=== PATIENT | male | born 1930 | race Caucasian/White ===

== ENCOUNTER → 2016-09-24 | Outpatient (CLI) | payer OTHER ==
[~2016-09-24] MED LIST: CALC625T PO; CLC100X PO; FISHOIL PO; FRRG PO; GLC500 PO; ISR/30 PO; LEVO112T4; LISI-461 PO; LISI5TAB; LSX40 PO; LYR50 PO; METO-596 PO; METO50TA17 PO; NITR0.4S UT; OMEG1CAP84 PO; OSTEO BI FLEX PO; POTA10CA28 PO; SIMV80TA2 PO; SULF800T23 PO
[2016-09-24 18:32] LABS: BASO % 0.4 %; BASO ABS # 0.04 K/uL (0-0.2); COMPLETE YES; EOS % 2.9 %; HEMATOCRIT 39.3 % (42-52); IG% 0.5 %; LYMPH ABS # 2.53 K/uL (1.2-3.4); MEAN CELL VOLUME 88.3 fL (80-100); MEAN CORPUSCULAR HEMOGLOBIN 28.3 pg (25-34); MEAN CORPUSCULAR HGB CONC 32.1 g/dl (32-36); MEAN PLATELET VOLUME 13.6 fL (7.4-10.4); MONO % 6.6 %; NEUT % 62.6 %; PLATELET COUNT 175 K/uL (130-400); RED BLOOD COUNT 4.45 M/uL (4.7-6.1); WHITE BLOOD COUNT 9.38 K/uL (4.8-10.8)
[2016-09-24 18:42] LABS: BLOOD UREA NITROGEN 17 mg/dl (7-18); BUN/CREATININE RATIO 17.4 (10-20); CALCIUM 8.7 mg/dl (8.5-10.1); CARBON DIOXIDE 33 mmol/L (21-32); CHLORIDE 103 mmol/L (98-107); CREATININE 0.95 mg/dl (0.60-1.40); GLUCOSE 144 mg/dl (70-99); POTASSIUM 3.9 mmol/L (3.5-5.1); SODIUM 140 mmol/L (136-145)
[2016-09-24 18:52] LABS: ALKALINE PHOSPHATASE 56 U/L (45-117); ALT/SGPT 24 U/L (12-78); AST/SGOT 17 U/L (15-37)
[2016-09-25 06:49] LABS: ESTIMATED AVERAGE GLUCOSE 189 mg/dl; HA1C FLAG Normal (Normal)
== END | disposition home or self-care (01) ==
LOC: C.LABSPEC 10:21
PROVIDERS: ATTEND Internal Medicine
DX: I25.10 Atherosclerotic heart disease of native coronary artery without angina pectoris (principal); E11.9 Type 2 diabetes mellitus without complications; R53.83 Other fatigue; E55.9 Vitamin D deficiency, unspecified

== ENCOUNTER → 2016-12-27 | Outpatient (CLI) | payer OTHER ==
[~2016-12-27] MED LIST changes: +ISOS30TA51 PO; -ISR/30 PO
[2016-12-27 15:24] LABS: BASO % 0.4 %; BASO ABS # 0.04 K/uL (0-0.2); COMPLETE YES; EOS % 2.3 %; HEMATOCRIT 40.2 % (42-52); IG% 0.5 %; LYMPH % 20.5 %; LYMPH ABS # 2.06 K/uL (1.2-3.4); MEAN CELL VOLUME 86.5 fL (80-100); MEAN CORPUSCULAR HEMOGLOBIN 27.1 pg (25-34); MEAN CORPUSCULAR HGB CONC 31.3 g/dl (32-36); MEAN PLATELET VOLUME 12.8 fL (7.4-10.4); NEUT % 68.3 %; PLATELET COUNT 206 K/uL (130-400); RED BLOOD COUNT 4.65 M/uL (4.7-6.1); WHITE BLOOD COUNT 10.05 K/uL (4.8-10.8)
[2016-12-27 15:37] LABS: ALB/GLOB RATIO 1.1 (0.9-2); ALKALINE PHOSPHATASE 54 U/L (45-117); ALT/SGPT 28 U/L (12-78); AMYLASE 36 U/L (25-115); AST/SGOT 22 U/L (15-37); BLOOD UREA NITROGEN 20 mg/dl (7-18); BUN/CREATININE RATIO 20.4 (10-20); CALCIUM 8.9 mg/dl (8.5-10.1); CARBON DIOXIDE 30 mmol/L (21-32); CHLORIDE 106 mmol/L (98-107); GLUCOSE 123 mg/dl (70-99); SODIUM 142 mmol/L (136-145)
== END | disposition home or self-care (01) ==
LOC: C.LABSPEC 14:43
PROVIDERS: ATTEND Internal Medicine
DX: R10.9 Unspecified abdominal pain (principal)

== ENCOUNTER → 2017-05-29 | Outpatient (CLI) | payer OTHER ==
[~2017-05-29] MED LIST changes: -ISOS30TA51 PO; +ISR/30 PO
[2017-05-29 15:15] LABS: BASO % 0.4 %; BASO ABS # 0.04 K/uL (0-0.2); COMPLETE YES; EOS % 3.7 %; HEMATOCRIT 39.4 % (42-52); IG% 0.8 %; LYMPH % 16.4 %; LYMPH ABS # 1.63 K/uL (1.2-3.4); MEAN CORPUSCULAR HGB CONC 32.2 g/dl (32-36); MEAN PLATELET VOLUME 12.8 fL (7.4-10.4); MONO % 8.8 %; NEUT % 69.9 %; PLATELET COUNT 208 K/uL (130-400); RED BLOOD COUNT 4.53 M/uL (4.7-6.1); WHITE BLOOD COUNT 9.92 K/uL (4.8-10.8)
[2017-05-29 15:24] LABS: ALT/SGPT 21 U/L (12-78); BLOOD UREA NITROGEN 20 mg/dl (7-18); BUN/CREATININE RATIO 19.1 (10-20); CALCIUM 8.4 mg/dl (8.5-10.1); CARBON DIOXIDE 33 mmol/L (21-32); CHLORIDE 103 mmol/L (98-107); CREATININE 1.03 mg/dl (0.60-1.40); GLUCOSE 177 mg/dl (70-99); POTASSIUM 3.9 mmol/L (3.5-5.1); SODIUM 140 mmol/L (136-145)
[2017-05-29 15:34] LABS: ALKALINE PHOSPHATASE 51 U/L (45-117); AST/SGOT 18 U/L (15-37)
[2017-05-30 06:21] LABS: ESTIMATED AVERAGE GLUCOSE 180 mg/dl; HA1C FLAG Normal (Normal)
== END | disposition home or self-care (01) ==
LOC: C.LABSPEC 14:53
PROVIDERS: ATTEND Internal Medicine
DX: D64.9 Anemia, unspecified (principal); E11.9 Type 2 diabetes mellitus without complications; E03.9 Hypothyroidism, unspecified; I25.10 Atherosclerotic heart disease of native coronary artery without angina pectoris

== ENCOUNTER 2017-07-11 01:24 | Emergency (ER) | payer OTHER ==
[~2017-07-11] VITALS: Ht 166.4 cm; Wt 99.4 kg
[2017-07-11 01:29] VITALS: TEMP 36.4; Ht 166.4 cm; Wt 99.4 kg
[2017-07-11] MEDS ORDERED: DOCU100C31 PO (02:06)
[2017-07-11] MEDS ORDERED: GLC/500 PO (02:07)
[2017-07-11] MEDS ORDERED: LYR50 PO (02:08)
[2017-07-11] MEDS ORDERED: METO50TA16 PO (02:09)
[2017-07-11] MEDS ORDERED: FERR325T18 PO (02:11)
[2017-07-11] MEDS ORDERED: POTA10CA28 PO (02:13)
[2017-07-11] MEDS ORDERED: ISOS60TA25 PO (02:15)
[2017-07-11] MEDS ORDERED: LISI-461 PO (02:16)
[2017-07-11] MEDS ORDERED: FRS/40 PO (02:17)
[2017-07-11] MEDS ORDERED: CALC-354 PO (02:19)
[2017-07-11] MEDS ORDERED: CYAN100020 PO (02:24)
--- NOTE | 2017-07-11 03:41 | EMERGENCY ROOM VISIT NOTE ---
History Report prepared by Audrey: Tanja Velazco Under the Supervision of: Grace GarzaO. First contact with patient: 01:49 Chief Complaint: FALL Stated Complaint: FALL-POSSIBLE CRACKED RIBS History of Present Illness The patient is a 86 year old male who presents to the Emergency Room with complaints of persistent right sided rib pain secondary to a fall that occurred 3 days ago. The patient states that he slipped on ice and fell forward. He notes that he took 3 Advil prior to arrival, which relieved some of his symptoms. Source of History: patient Onset: 3 days ago Position: other (right sided rib) Quality: other (right sided rib pain) Timing: other (persistent) Modifying Factors (Relieving): other (3 advil relieved some of his symptom) Review of Systems See HPI for pertinent positives & negatives. A total of 10 systems reviewed and were otherwise negative. Past Medical & Surgical Medical Problems: (1) acute chf, CAD (2) CAD, DYSPNEA, ANEMIA (3) CORON ATHEROSCLER NOS TYPE VESSEL, [place] OR GRAFT (4) HYPERLIPIDEMIA NEC/NOS (5) HYPERTENSION NOS (6) HYPOTHYROIDISM NOS Family History FH: diabetes mellitus FH: gallbladder disease FH: heart disease FH: hypertension Social History Smoking Status: Former Smoker Alcohol Use: none Drug Use: none Marital Status: Housing Status: lives with family Occupation Status: retired Current/Historical Medications Scheduled Calcium Carbonate-Cholecalcife (Caltrate 600+D), 1 TAB PO QAM Cyanocobalamin (Vitamin B12), Unknown Dose PO QAM Docusate Sodium (Docusate Sodium), 200 MG PO HS Ferrous Gluconate (Ferrous Gluconate), 324 MG PO TID Furosemide (Lasix), 40 MG PO QAM Isosorbide Mononitrate Ext Rel (Imdur Ext Rel), 30 MG PO QAM Levothyroxine Sodium (Levothyroxine Sodium), 112 MCG DAILY Lisinopril (Zestril), 10 MG PO DAILY Metformin Hcl (Glucophage), 500 MG PO HS Metoprolol Tartrate (Lopressor) (Lopressor), 50 MG PO BID Nitroglycerin (Nitrostat), 0.4 MG UT PRN Potassium Chloride (Micro-K Ext Rel), 10 MEQ PO BID Pregabalin (Lyrica), 50 MG PO BID Simvastatin (Zocor), 40 MG PO QPM [Osteo Bi Flex], 1 TAB PO QAM Allergies Coded Allergies: Sulfa Antibiotics (Verified Allergy, Unknown, RASH, 05/31/15) Daughter reported allegy to Bactrim prescribed in the past by Urologist in [place]. She stated that patient had a rash and she did call his Urologist's ofiice and the allegy was confirmed. Physical Exam Vital Signs Date Time Temp Pulse Resp B/P (MAP) Pulse Ox O2 Delivery O2 Flow Rate FiO2 07/11/17 05:09 51 18 181/76 100 07/11/17 03:48 45 07/11/17 03:42 49 18 167/55 99 Room Air 07/11/17 01:29 36.4 56 16 164/69 95 Room Air Physical Exam HEENT: Head - normocephalic and atraumatic. Pupils are equal, round, and reactive to light. Extraocular eye muscles are intact and sclera are anicteric. Ears - bilaterally patent canals with no evidence of hemotympanum. Nose - moist nasal mucosa without evidence of trauma or discharge. Mouth - moist buccal mucosa with no trauma to the teeth or signs of malocclusion. Neck: The neck is supple and there is no pain to palpation over the posterior cervical spine and no obvious step-offs or deformities. There is no JVD or tracheal deviation. Chest: There are no signs of deformities, contusions or abrasions to the chest wall. There is no obvious crepitus or paradoxical chest rise. Heart: Regular, rate, and rhythm. There is a normal S1 and S2 with no murmurs, clicks, or gallops appreciated. Lungs: Clear to auscultation bilaterally with no wheezes, rales, or rhonchi. Abdomen: Soft, completely nontender, nondistended, with good bowel sounds. There is no sign of trauma such as contusions, abrasions or penetrations. There are no palpable pulsatile masses or hepatosplenomegaly. There is no guarding, rigidity, or rebound noted. Pelvis: Stable to rock and compression. Extremities: No obvious trauma, deformities, contusions, or edema. Old abrasion on right wrist. There are easily palpable peripheral pulses. Musculoskeletal: Right inferior anterior rib cage pain with palpation. No obvious crepitus. Neuro: The patient is awake and alert and easily able to follow commands. Muscle strength is 5 out of 5 in all 4 extremities. Otherwise, neuro exam is unremarkable. Medical Decision & Procedures ER Provider Diagnostic Interpretation: Rib x-ray results as stated below per interpretation by me: No obvious pneumothorax or rib fracture. ED Course 0310: Past medical records reviewed. The patient was evaluated in room B9. A complete history and physical exam was performed. The patient declined wanting anything for pain. He went for plain films of his right ribs. No obvious fractures or pneumothorax were identified. 0511: Upon reevaluation, the patient was resting. We talked about the pros and cons of a rib belt. Again, he declined wanting anything for pain. I discussed findings and results with him. He verbalized agreement of the treatment plan. The patient was discharged home. Medical Decision The patient is a 86 year old male who presents to the ED with persistent right sided rib pain . Differential diagnosis includes rib fracture, pneumothorax, and chest wall contusion. This is an 86-year-old male patient is suffering fall 3 days ago on the ice. Since that time, he's had some discomfort in the right lower rib cage. No obvious fractures were identified. There is no pneumothorax or consolidation noted on x-ray. The patient was encouraged to take deep breaths and use Tylenol or NSAIDs for pain. Medication Reconcilliation Current Medication List: was personally reviewed by me Blood Pressure Screening Patient's blood pressure: Elevated blood pressure Impression Primary Impression: Fall Additional Impression: Contusion of rib on right side Scribe Attestation The scribe's documentation has been prepared under my direction and personally reviewed by me in its entirety. I confirm that the note above accurately reflects all work, treatment, procedures, and medical decision making performed by me. Departure Information Dispostion Home / Self-Care Referrals Morteza Sheppard M.D. (PCP) Forms HOME CARE DOCUMENTATION FORM, IMPORTANT VISIT INFORMATION Patient Instructions My [facility] [employer] Additional Instructions Rest. Hold a pillow over ribs if you need to cough. Take tylenol for pain Problem Qualifiers Primary Impression: Fall Encounter type: initial encounter Qualified Codes: W19.XXXA - Unspecified fall, initial encounter Additional Impression: Contusion of rib on right side Encounter type: initial encounter Qualified Codes: S20.211A - Contusion of right front wall of thorax, initial encounter
[2017-07-11 05:09] VITALS: BP 181/76; PULSE 51; O2SAT 100
--- NOTE | 2017-07-11 06:47 | DIAGNOSTIC IMAGING REPORT ---
R RIBS UNILATERAL WITH PA CHEST HISTORY: 86 years-old Male eval for right sided rib fractures acute right-sided rib pain status post fall COMPARISON: Chest radiographs 05/31/2015 TECHNIQUE: PA view of the chest with 5 views of the right ribs FINDINGS: Cardiac silhouette is mildly enlarged, unchanged. Lungs are mildly hypoinflated with bronchovascular crowding. Linear subsegmental opacity of the lateral left midlung is unchanged compatible with scarring/atelectasis. There is no pneumothorax, pleural effusion, focal airspace consolidation or overt pulmonary edema. Advanced degenerative changes are seen within the shoulders and spine. Cholecystectomy clips noted. No acute displaced rib fracture identified. IMPRESSION: 1. Hypoinflation without acute process. 2. No acute rib fracture or pneumothorax identified. The above report was generated using voice recognition software. It may contain grammatical, syntax or spelling errors. Electronically signed by: Alvarado Hilario M.D. 07/11/2017 6:45 AM Dictated Date/Time: 07/11/2017 6:43 AM
== END 2017-07-11 05:11 | disposition home or self-care (01) ==
LOC: C.EDB 01:26
DX: S20.211A Contusion of right front wall of thorax, initial encounter (principal); W00.9XXA Unspecified fall due to ice and snow, initial encounter; I10 Essential (primary) hypertension; E03.9 Hypothyroidism, unspecified; E78.5 Hyperlipidemia, unspecified; I25.10 Atherosclerotic heart disease of native coronary artery without angina pectoris; Z79.84 Long term (current) use of oral hypoglycemic drugs; Z87.891 Personal history of nicotine dependence; Z88.1 Allergy status to other antibiotic agents; Z83.3 Family history of diabetes mellitus; Z83.79 Family history of other diseases of the digestive system; Z82.49 Family history of ischemic heart disease and other diseases of the circulatory system

== ENCOUNTER → 2018-01-06 | Outpatient (CLI) | payer OTHER ==
[~2018-01-06] MED LIST changes: +CALC-354 PO; -CALC625T PO; -CLC100X PO; +CYAN100020 PO; +DOCU100C31 PO; +FERR325T18 PO; -FISHOIL PO; -FRRG PO; +FRS/40 PO; +GLC/500 PO; -GLC500 PO; +ISOS60TA25 PO; -ISR/30 PO; -LISI5TAB; -LSX40 PO; -METO-596 PO; +METO50TA16 PO; -METO50TA17 PO; -OMEG1CAP84 PO; -SULF800T23 PO
[2018-01-06 17:34] LABS: MEAN CORPUSCULAR HGB CONC 32.6 g/dl (32-36)
[2018-01-06 17:43] LABS: HEMATOCRIT 39.3 % (42-52); HEMOGLOBIN 12.8 g/dL (14.0-18.0); MEAN CELL VOLUME 85.2 fL (80-100); MEAN CORPUSCULAR HEMOGLOBIN 27.8 pg (25-34); RED CELL DISTRIBUTION WIDTH CV 14.1 % (11.5-14.5); RED CELL DISTRIBUTION WIDTH SD 42.8 fL (36.4-46.3); WHITE BLOOD COUNT 9.24 K/uL (4.8-10.8)
[2018-01-06 17:46] LABS: ALBUMIN 3.5 gm/dl (3.4-5.0); ALT/SGPT 26 U/L (12-78); AST/SGOT 24 U/L (15-37); BLOOD UREA NITROGEN 16 mg/dl (7-18); CALCIUM 8.3 mg/dl (8.5-10.1); CARBON DIOXIDE 24 mmol/L (21-32); CREATININE 1.02 mg/dl (0.60-1.40); GLUCOSE 125 mg/dl (70-99); POTASSIUM 4.2 mmol/L (3.5-5.1); SODIUM 136 mmol/L (136-145)
[2018-01-06 17:47] LABS: ALKALINE PHOSPHATASE 49 U/L (45-117); CHOLESTEROL 104 mg/dl (0-200); LDL CHOLESTEROL (DIRECT) 44 mg/dl; TOTAL PROTEIN 6.9 gm/dl (6.4-8.2)
[2018-01-06 18:05] LABS: BASO % 0.4 %; BASO ABS # 0.04 K/uL (0-0.2); EOS % 3.1 %; EOS ABS # 0.29 K/uL (0-0.5); IG# 0.06 K/uL (0.00-0.02); LYMPH % 18.5 %; LYMPH ABS # 1.71 K/uL (1.2-3.4); MONO % 12.1 %; MONO ABS # 1.12 K/uL (0.11-0.59); NEUT % 65.3 %; NEUT ABS # 6.02 K/uL (1.4-6.5); PLATELET COUNT 152 K/uL (130-400)
[2018-01-07 06:51] LABS: HEMOGLOBIN A1C 8.2 % (4.5-5.6)
== END | disposition home or self-care (01) ==
LOC: C.LABSPEC 17:17
PROVIDERS: ATTEND Internal Medicine
DX: I25.10 Atherosclerotic heart disease of native coronary artery without angina pectoris (principal); E11.9 Type 2 diabetes mellitus without complications; E03.9 Hypothyroidism, unspecified

== ENCOUNTER 2019-09-13 09:24 | Observation (INO) ==
[2019-09-13] MEDS ORDERED: MECLIZINE HCL 25 MG TAB PO STA (09:52)
--- NOTE | 2019-09-13 09:52 | Emergency Department Note ---
Impression & Plan Dizziness, Fall, Rib pain on left side, Abrasion of elbow, left ED Provider Note NAME: DANI PINO AGE: 88 SEX: M ARRIVES VIA: Ambulance INFORMANT: [Patient] daughter ED PROVIDER(S): Dalton Lorenzo MD CHIEF COMPLAINT: Dizziness, fall PLAN: Disposition: Admitted Condition: [Good] MEDICAL DECISION MAKING: Patient presented with dizziness and a fall. He describes positional vertigo and has a history of the same. He does self catheterize. Urinalysis was concerning for infection. The patient did have a elevation of his white blood cell count. CT imaging was negative. The patient was given meclizine and IV Rocephin. The patient and daughter desired discharge however the patient was unable to ambulate safely. He was very unstable. Due to this fact he will need further management in the hospital as he is not safe to go home. Consultation was made with internal medicine. Patient was evaluated in the ER for admission. Triage Nursing notes reviewed and agree them. [Additional history obtained from] patient's daughter [Prior medical records reviewed] history of CHF, diabetes and aortic stenosis Vital Signs: reviewed and remarkable for hypertension. Differential diagnosis: Benign positional vertigo, dehydration, hypovolemia, anemia, tumor, infection, hypoglycemia, electrolyte abnormalities, cardiac sources, intracerebral event, toxicologic, neurologic, trauma, as well as other pathologies. ER treatment provided: Bacitracin and bandage to the left elbow abrasion Meclizine IV Rocephin Diagnostics interpreted by me: ECG: Rate: 56 Rhythm: Sinus bradycardia [place]: Normal QRS: Normal ST segements: Nonspecific ST. No elevation or depression. Other: PACs Cardiac Monitoring: Cardiac monitoring ordered by me: The patient was placed on continuous cardiac monitoring and observed. It revealed a sinus bradycardia at 54 beats per minute with occasional ectopy but no evidence of dysrhythmia. Laboratory studies: [See below] a mild leukocytosis on CBC. Chemistry panel was unremarkable except for subtle dehydration. Imaging studies: Chest and left rib imaging was negative for acute process. CT imaging of the head was negative. Consultation(s): Dr. An of internal medicine. HPI: The patient is a 88 year old male who presents to the Emergency Room with complaints of dizziness and a fall. This started around 2:00 this morning with the dizziness and is stable. The patient states he woke up and around 6 AM. He was getting dressed and was trying to get out of his bedroom and fell. He has had dizziness in the past, describing vertigo. He felt pain in his left ribs from falling as well as he did scratch his left elbow. He did strike his head. He was given Zofran and Toradol for his pain. He had some nausea from the dizziness. Current pain is rated as 2/10. Pt denies LOC, headache, fevers, chills, diaphoresis, visual changes, neck pain, chest pain, breathing difficulties, vomiting, abdominal pain, back pain, melena, hematochezia, urinary symptoms, numbness, weakness, lymphadenopathy, rash, or other complaints. ROS: See above HPI for pertinent positives & negatives. A total of [10] systems reviewed and were otherwise negative. PAST MEDICAL HISTORY:[See Below] diabetes, aortic stenosis, prostate cancer PAST SURGICAL HISTORY:[See Below] FAMILY HISTORY:[See Below] SOCIAL HISTORY:[See Below] lives with family HOME MEDICATIONS:[See Below] ALLERGIES:[See Below] VITALS:[See Below] PHYSICAL EXAMINATION: GENERAL: Awake, alert, well-appearing, in no distress HENT: Normocephalic, atraumatic. Oropharynx unremarkable. EYES: Normal conjunctiva. Sclera non-icteric. PERRLA. EOMI. NECK: Inspection normal. Non-tender. Supple. No nuchal rigidity. FROM. No masses. RESPIRATORY: Clear to auscultation. No wheezes. No rales. Normal respiratory effort. CARDIAC: Normal rate. Normal rhythm. No murmurs. No rubs. Extremities warm and well perfused. Pulses equal. No JVD. GI: Soft, non-distended. No tenderness to palpation. No rebound or guarding. No masses. RECTAL: Deferred. MUSCULOSKELETAL: Atraumatic except for a minor abrasion on the left elbow. No bony deformity or tenderness.. Chest examination reveals no tenderness. The back is symmetrical on inspection without obvious abnormality. There is no CVA tenderness to palpation. There is left posterior lateral rib tenderness to palpation. No joint edema. LOWER EXTREMITIES: Calves are equal size bilaterally and non-tender. No edema. No discoloration. NEURO: Normal sensorium. No sensory or motor deficits noted. Speech clear. Bradycardic SKIN: No rash or jaundice noted. ED COURSE: [Critical Care:] [None] Dalton Lorenzo MD Past Med/Surg History Medical History (Updated 09/13/19 @ 13:33 by Jamshid An MD) Acute dyspnea (Inactive) Acute UTI (Inactive) Anemia (Acute) Aortic stenosis Bilateral edema of lower extremity (Inactive) CAD (coronary artery disease) Cervical spine disease CHF (congestive heart failure) Contusion of rib on right side (Acute) Dyslipidemia Elevated brain natriuretic peptide (BNP) level (Inactive) Fall (Acute) Hypertension Osteoarthritis Pancreatic cyst MRI abd 06/26/18. Multiple cysts. [place] not to be malignancy. Prostate cancer Small bowel obstruction Type 2 diabetes mellitus Surgical History (Updated 08/15/19 @ 12:11 by Kevan Martin Jr, MD, [facility]) History of lumbar surgery Hx of cholecystectomy Family History (Updated 08/15/19 @ 12:07 by Kevan Martin Jr, MD, [facility]) Father Cancer Mother Cancer Brother Coronary heart disease Other Family history non-contributory Social History (Updated 08/15/19 @ 12:06 by Kevan Martin Jr, MD, [facility]) Preferred Language: Bengali Communication Ability: Effective Bullet Slugs Inspector Required: No Beliefs That Will Affect Care: None marital status: / Current Living Situation: Family Current Living Situation Comment: lives with family current occupational status: retired Feels Safe at Home: Yes Smoking Status: Former smoker Hx Alcohol Use: No Hx Substance Use: No Allergies Allergies Allergy/AdvReac Type Severity Reaction Status Date / Time Sulfa (Sulfonamide Allergy Unknown RASH Verified 09/13/19 10:07 Antibiotics) Home Meds Home Medications Medication Instructions Recorded Confirmed glucosamine-chondroitin [Osteo 1 tab PO DAILY #0 12/01/08 09/13/19 Bi-Flex] simvastatin [Zocor] 80 mg PO PM #0 09/21/11 09/13/19 levothyroxine [Synthroid] 112 mcg PO DAILY #0 02/28/13 09/13/19 Ca carb-D3-mag [id number]-Zn 1 tab PO DAILY #0 07/11/17 09/13/19 [Caltrate + D3 Plus Minerals] docusate sodium 100 mg PO HS #0 cap 07/11/17 09/13/19 furosemide [Lasix] 40 mg PO DAILY #0 tab 07/11/17 09/13/19 isosorbide mononitrate 30 mg PO DAILY #0 tab 07/11/17 09/13/19 metformin [Glucophage] 500 mg PO BID #0 tab 07/11/17 09/13/19 metoprolol tartrate [Lopressor] 50 mg PO BID #0 tab 07/11/17 09/13/19 potassium chloride 10 meq PO BID #0 cap 07/11/17 09/13/19 thiamine HCl (vitamin B1) [Vitamin 50 mg PO QAM #0 07/11/17 09/13/19 B-1] lisinopril 5 mg PO DAILY 05/13/19 09/13/19 cholecalciferol (vitamin D3) 25 1,000 units PO DAILY cap 06/11/19 09/13/19 mcg (1,000 unit) capsule amlodipine 10 mg PO DAILY 09/13/19 09/13/19 ferrous gluconate 324 mg PO TID 09/13/19 09/13/19 omega [id number]-fish oil [Fish Oil] 1 cap PO DAILY 09/13/19 09/13/19 pregabalin [Lyrica] 75 mg PO DAILY 09/13/19 09/13/19 zolpidem 5 mg PO HS PRN 09/13/19 09/13/19 Previous Rx's Medication Instructions Recorded nitroglycerin 0.4 mg sublingual 0.4 mg SUBLINGUAL UD #25 tab 08/23/19 tablet Results & Data (ED) Vital Signs Vital Signs - 24 hr 09/13/19 09:47 09/13/19 10:14 09/13/19 10:27 Temperature 36.6 C Temperature Source Oral Pulse Rate - Lying Pulse Rate - Sitting Pulse Rate - Standing Pulse Rate 56 L 52 L Pulse Rate from SpO2 Sensor 51 L Respiratory Rate 16 20 Respiratory Effort / Characteristics Non-Labored Respiratory Depth Normal Respiratory Pattern Regular Blood Pressure - Lying Blood Pressure - Sitting Blood Pressure- Standing Blood Pressure 180/67 H 140/56 L Blood Pressure Mean 104 67 Blood Pressure Position Sitting Pulse Oximetry 95 96 100 Oxygen Delivery Method Room Air Room Air Sepsis Recent Fever Within 48 Hours No Sepsis New/Unexplained Change in Mental Status No Sepsis Action Taken by Nursing No Action Required 09/13/19 10:41 09/13/19 10:42 09/13/19 10:44 Temperature Temperature Source Pulse Rate - Lying 54 L Pulse Rate - Sitting 58 L Pulse Rate - Standing 53 L Pulse Rate 51 L 55 L Pulse Rate from SpO2 Sensor 52 L 55 L Respiratory Rate 18 15 Respiratory Effort / Characteristics Respiratory Depth Respiratory Pattern Blood Pressure - Lying 152/57 H Blood Pressure - Sitting 146/61 H Blood Pressure- Standing 176/58 H Blood Pressure 152/57 H 146/61 H Blood Pressure Mean 77 109 Blood Pressure Position Pulse Oximetry 94 95 Oxygen Delivery Method Sepsis Recent Fever Within 48 Hours Sepsis New/Unexplained Change in Mental Status Sepsis Action Taken by Nursing 09/13/19 10:46 09/13/19 11:00 09/13/19 11:30 Temperature Temperature Source Pulse Rate - Lying Pulse Rate - Sitting Pulse Rate - Standing Pulse Rate 54 L 51 L 54 L Pulse Rate from SpO2 Sensor 50 L 48 L 53 L Respiratory Rate 18 19 22 Respiratory Effort / Characteristics Respiratory Depth Respiratory Pattern Blood Pressure - Lying Blood Pressure - Sitting Blood Pressure- Standing Blood Pressure 176/58 H 154/59 H 165/62 H Blood Pressure Mean 78 65 89 Blood Pressure Position Pulse Oximetry 95 92 97 Oxygen Delivery Method Sepsis Recent Fever Within 48 Hours Sepsis New/Unexplained Change in Mental Status Sepsis Action Taken by Nursing 09/13/19 12:00 09/13/19 12:30 Temperature Temperature Source Pulse Rate - Lying Pulse Rate - Sitting Pulse Rate - Standing Pulse Rate 49 L 51 L Pulse Rate from SpO2 Sensor 50 L 52 L Respiratory Rate 18 19 Respiratory Effort / Characteristics Respiratory Depth Respiratory Pattern Blood Pressure - Lying Blood Pressure - Sitting Blood Pressure- Standing Blood Pressure 158/60 H 165/61 H Blood Pressure Mean 95 86 Blood Pressure Position Pulse Oximetry 94 96 Oxygen Delivery Method Sepsis Recent Fever Within 48 Hours Sepsis New/Unexplained Change in Mental Status Sepsis Action Taken by Nursing Laboratory Data Result diagrams: 09/13/19 10:10 09/13/19 10:10 Lab Results 09/13/19 09/13/19 09/13/19 Range/Units 10:00 10:10 10:10 WBC 13.12 H (4.8-10.8) K/uL RBC 4.43 L (4.7-6.1) M/uL Hgb 12.4 L (14.0-18.0) g/dL Hct 38.3 L (42-52) % MCV 86.5 (80-100) fL MCH 28.0 (25-34) pg MCHC 32.4 (32-36) g/dL RDW Std Deviation 44.2 (36.4-46.3) fL RDW Coeff of Lucina 14.2 (11.5-14.5) % Plt Count 168 (130-400) K/uL MPV 12.3 H (7.4-10.4) fL Immature Gran % (Auto) 0.6 % Neut % (Auto) 86.5 % Lymph % (Auto) 6.4 % [place] % (Auto) 5.5 % Eos % (Auto) 0.8 % Baso % (Auto) 0.2 % Immature Gran # (Auto) 0.08 H (0.00-0.02) K/uL Neut # (Auto) 11.35 H (1.4-6.5) K/uL Lymph # (Auto) 0.84 L (1.2-3.4) K/uL [place] # (Auto) 0.72 H (0.11-0.59) K/uL Eos # (Auto) 0.10 (0-0.5) K/uL Baso # (Auto) 0.03 (0-0.2) K/uL Sodium 140 (136-145) mmol/L Potassium 4.1 (3.5-5.1) mmol/L Chloride 107 (98-107) mmol/L Carbon Dioxide 29 (21-32) mmol/L Anion Gap 4.0 (3-11) BUN 23 H (7-18) mg/dl Creatinine 0.89 (0.6-1.4) mg/dl Est Cr Clr Drug Dosing Not Reportable Est GFR ( Amer) 89.7 Est GFR (Non-Af Amer) 77.4 BUN/Creatinine Ratio 26.0 H (10-20) Glucose 157 H (70-99) mg/dl Calcium 8.6 (8.5-10.1) mg/dl Magnesium 2.0 (1.8-2.4) mg/dl Total Bilirubin 0.4 (0.2-1) mg/dl AST 17 (15-37) U/L ALT 18 (12-78) U/L Alkaline Phosphatase 46 (45-117) U/L Troponin I < 0.015 (0-0.045) ng/ml Total Protein 6.8 (6.4-8.2) gm/dl Albumin 3.3 L (3.4-5.0) gm/dl Globulin 3.5 (2.5-4.0) gm/dl Albumin/Globulin Ratio 0.9 (0.9-2) TSH 1.250 (0.300-4.500) uIu/ml Urine Color Yellow Urine Appearance Cloudy A (Clear) Urine pH 7.0 (4.5-7.5) Ur Specific [place] 1.015 (1.000-1.030) Urine Protein Negative (Negative) Urine Glucose (UA) Negative (Negative) Urine Ketones Negative (Negative) Urine Blood Negative (Negative) Urine Nitrite Negative (Negative) Urine Bilirubin Negative (Negative) Urine Urobilinogen Negative (Negative) Ur Leukocyte Esterase 1+ H (Negative) Urine WBC (Auto) >30 H (0-5) /hpf Urine RBC (Auto) 0-4 (0-4) /hpf U Hyaline Cast (Auto) 5-10 H (0-5) /lpf U Epithel Cells (Auto) 0-5 (0-5) /lpf Urine Bacteria (Auto) 4+ H (Negative) Administered Medications Discontinued Medications Ceftriaxone Sodium (Rocephin) 1,000 mg in 50 mls @ 100 mls/hr IV NOW STA Stop: 09/13/19 11:19 Last Infusion: 09/13/19 11:51 Dose: 0 mls/hr Documented by: [id number] Admin: 09/13/19 11:21 Dose: 100 mls/hr Documented by: [id number] Meclizine HCl (Antivert) 25 mg PO NOW STA Stop: 09/13/19 09:53 Last Admin: 09/13/19 10:38 Dose: 25 mg Documented by: [id number] Discharge Plan Visit Data Chief Complaint: Fall Stated Complaint: Fall, Left Flank Pain ED Provider: Dalton Lorenzo Discharge Problem: Dizziness, Fall, Rib pain on left side, Abrasion of elbow, left Discharge Problem: Fall Qualifiers: Encounter type: initial encounter Qualified Code(s): W19.XXXA - Unspecified fall, initial encounter
[2019-09-13 10:20] LABS: Basophils # (auto) 0.03 K/uL (0-0.2); Basophils % (auto) 0.2 %; Eosinophils % (auto) 0.8 %; Hematocrit (blood only) 38.3 % (42-52); Hemoglobin 12.4 g/dL (14.0-18.0); Immature Granulocytes # (auto) 0.08 K/uL (0.00-0.02); Immature Granulocytes % (auto) 0.6 %; Lymphocytes # (auto) 0.84 K/uL (1.2-3.4); Lymphocytes % (auto) 6.4 %; Mean Corpuscular Hgb Conc 32.4 g/dL (32-36); Mean Corpuscular Volume 86.5 fL (80-100); Mean Platelet Volume 12.3 fL (7.4-10.4); Monocytes # (auto) 0.72 K/uL (0.11-0.59); Monocytes % (auto) 5.5 %; Neutrophils # (auto) 11.35 K/uL (1.4-6.5); Neutrophils % (auto) 86.5 %; Platelet Count 168 K/uL (130-400); RDW Coefficient of Variation 14.2 % (11.5-14.5); RDW Standard Deviation 44.2 fL (36.4-46.3); Red Blood Count 4.43 M/uL (4.7-6.1); White Blood Count 13.12 K/uL (4.8-10.8)
[2019-09-13 10:20] LABS: Appearance Urine Cloudy (Clear); Bacteria Urine Automated 4+ (Negative); Bilirubin Urine Negative (Negative); Blood Urine Negative (Negative); Color Urine Yellow; Epithelial Cell Urine Auto 0-5 /lpf (0-5); Glucose Urine UA Negative (Negative); Ketones Urine Negative (Negative); Leukocyte Esterase Urine 1+ (Negative); Nitrite Urine Negative (Negative); Protein Urine Negative (Negative); RBC Urine Automated 0-4 /hpf (0-4); Specific Gravity Urine 1.015 (1.000-1.030); Urobilinogen Urine Negative (Negative); WBC Urine Automated >30 /hpf (0-5)
[2019-09-13 10:37] LABS: Alanine Aminotransferase 18 U/L (12-78); Albumin Level 3.3 gm/dl (3.4-5.0); Aspartate Aminotransferase 17 U/L (15-37); Blood Urea Nitrogen 23 mg/dl (7-18); Calcium 8.6 mg/dl (8.5-10.1); Carbon Dioxide 29 mmol/L (21-32); Chloride 107 mmol/L (98-107); Est GFR (African American) 89.7; Est GFR (Non-African American) 77.4; Glucose 157 mg/dl (70-99); Potassium 4.1 mmol/L (3.5-5.1); Sodium 140 mmol/L (136-145)
--- NOTE | 2019-09-13 10:41 | CT Scan Report ---
CT head/brain wo con CLINICAL HISTORY: 88 years-old Male with fall, dizzy, CHI. Acute dizziness status post fall. Acute h eadache TECHNIQUE: Multiple axial CT images of the head were obtained without contrast. A dose lowering tech nique was utilized adhering to the principles of ALARA. CT DOSE: 614.27 mGy.cm COMPARISON: Brain MRI 07/08/2013 FINDINGS: No acute intracranial hemorrhage, midline shift, intracranial mass, hydrocephalus, territorial ischem ia or abnormal extra-axial collection. Age-related involutional changes with mild ex vacuo ventriculo megaly. Mild patchy white matter hypodensities suggest chronic microvascular ischemic disease. Study is mildly motion degraded. The calvarium is intact. Hypoplastic frontal sinuses. Prior bilateral cataract repair. The paranasal sinuses, mastoid air cells, and middle ear cavities are clear. IMPRESSION: No acute intracranial abnormality or calvarial fracture. ACT 112: Negative or not required by law. The above report was generated using voice recognition software. It may contain grammatical, syntax o r spelling errors. Electronically signed by: Alvarado Hilario M.D. 09/13/2019 10:40 AM
[2019-09-13 10:48] LABS: Albumin Globulin Ratio 0.9 (0.9-2); Alkaline Phosphatase 46 U/L (45-117); Bilirubin,Total 0.4 mg/dl (0.2-1); Globulin 3.5 gm/dl (2.5-4.0); Total Protein 6.8 gm/dl (6.4-8.2); Troponin I < 0.015 ng/ml (0-0.045)
[2019-09-13] MEDS ORDERED: cefTRIAXone SODIUM 1,000 MG/50 ML BAG IV STA (10:50)
--- NOTE | 2019-09-13 11:24 | XRay Report ---
XR ribs LT min 3V w CXR1V HISTORY: 88 years-old Male fall, left rib pain . Acute left-sided rib and chest pain status post fal l COMPARISON: Chest radiograph 05/13/2019 TECHNIQUE: AP view of the chest with 4 views of the left ribs FINDINGS: Cardiac silhouette is enlarged. No pneumothorax, large pleural effusion or overt pulmonary edema. Min imal bibasilar densities suggest atelectasis. Degenerative changes of the shoulders and spine. No acu te displaced rib fracture. IMPRESSION: 1. Cardiomegaly without acute cardiopulmonary abnormality. 2. No pneumothorax or acute rib fracture identified. ACT 112: Negative or not required by law. The above report was generated using voice recognition software. It may contain grammatical, syntax o r spelling errors. Electronically signed by: Alvarado Hilario M.D. 09/13/2019 11:23 AM
--- NOTE | 2019-09-13 12:51 | History & Physical Report ---
Date of Service September 13, 2019 Assessment & Plan (1) Dizziness: Acute onset. Similar to prior episodic episodes (although these occur infrequently are consistent with BPPV). Will treat with meclizine PRN. Initially planned on discharging home however he remained dizzy on walking in the ER and lives alone therefore will be brought in for observation. (2) Fall: Due to vertigo above. Mild left elbow abrasion as result. No groin pain on hip rotation or walking. CT head with no acute abnormality. (3) Abrasion of elbow, left: Dressed in ER. (4) Type 2 diabetes mellitus: T2DM diet HbA1C 7.7 in Jul; no need to repeat Hold metformin and Rx with insulin SS while admitted. (5) Prostate cancer: Unknown staging. His daughter reports stage 4 although no urology confirmation of this and cysts in pancreas assumed not to be malignant. On 6 monthly Eliguard injections (next due in September). Straight cath Q8H while here. Can resume daily on discharge. (6) CAD (coronary artery disease): Unclear why he is not on ASA. Continue BB, ACEi, statin (higher dose simvastatin but no myalgias related to this). (7) Aortic stenosis: Do not suspect to be contributory towards current dizziness given acute complaint and good ambulation yesterday without dizziness. Severe with no plan for intervention as per his daughter. (8) Asymptomatic bacteriuria: As described by his daughter his urine always has bacteria in it when they do tests prior to Eliguard injections. No symptoms suggestive of current infection. Dizziness is very vertigo sounding based on movement therefore do not feel this is contributory. (9) Hypertension: Continue usual antihypertensives; amlodipine, ISMN, lisinopril, metoprolol (will reduce dose slightly as even with missing his dose this morning his HR is running in 50s). (10) CHF (congestive heart failure): Chronic valvular heart failure. At baseline leg swelling and SOB as per patient and his daughter. No acute exacerbation. (11) DVT prophylaxis: Lovenox 40mg SQ HS. 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 He describes his dizziness as the room spinning. No light-headedness of loss of consciousness. Last similar episode 5-6 years ago which lasted for minutes. He was previously prescribed meclizine for this but never had to take it given infrequency of episodes. Initially had planned on discharging home from the ER but patient was still significantly dizzy when trying to walk around the room. Allergies Allergy/AdvReac Type Severity Reaction Status Date / Time Sulfa (Sulfonamide Allergy Unknown RASH Verified 09/13/19 10:07 Antibiotics) Home Medications Home Medications Medication Instructions Recorded Confirmed Type glucosamine-chondroitin [Osteo 1 tab PO DAILY #0 12/01/08 09/13/19 History Bi-Flex] levothyroxine [Synthroid] 112 mcg PO DAILY #0 02/28/13 09/13/19 History Ca carb-D3-mag kb-hjj-[id number]-Zn 1 tab PO DAILY #0 07/11/17 09/13/19 History [Caltrate + D3 Plus Minerals] docusate sodium 100 mg PO HS #0 cap 07/11/17 09/13/19 History furosemide [Lasix] 40 mg PO DAILY #0 tab 07/11/17 09/13/19 History isosorbide mononitrate 30 mg PO DAILY #0 tab 07/11/17 09/13/19 History metformin [Glucophage] 500 mg PO BID #0 tab 07/11/17 09/13/19 History metoprolol tartrate [Lopressor] 50 mg PO BID #0 tab 07/11/17 09/13/19 History potassium chloride 10 meq PO BID #0 cap 07/11/17 09/13/19 History thiamine HCl (vitamin B1) [Vitamin 50 mg PO QAM #0 07/11/17 09/13/19 History B-1] lisinopril 5 mg PO DAILY 05/13/19 09/13/19 History cholecalciferol (vitamin D3) 25 1,000 units PO DAILY cap 06/11/19 09/13/19 History mcg (1,000 unit) capsule nitroglycerin 0.4 mg sublingual 0.4 mg SUBLINGUAL UD #25 tab 08/23/19 09/13/19 Rx tablet amlodipine 10 mg PO DAILY 09/13/19 09/13/19 History ferrous gluconate 324 mg PO TID 09/13/19 09/13/19 History omega 4-lsl-kvv-fish oil [Fish Oil] 1 cap PO DAILY 09/13/19 09/13/19 History pregabalin [Lyrica] 75 mg PO DAILY 09/13/19 09/13/19 History simvastatin 40 mg PO HS 09/13/19 09/13/19 History zolpidem 5 mg PO HS PRN 09/13/19 09/13/19 History Past Med/Surg History Medical History (Updated 09/13/19 @ 13:33 by Jamshid An MD) Acute dyspnea (Inactive) Acute UTI (Inactive) Anemia (Acute) Aortic stenosis Bilateral edema of lower extremity (Inactive) CAD (coronary artery disease) Cervical spine disease CHF (congestive heart failure) Contusion of rib on right side (Acute) Dyslipidemia Elevated brain natriuretic peptide (BNP) level (Inactive) Fall (Acute) Hypertension Osteoarthritis Pancreatic cyst MRI abd 06/26/18. Multiple cysts. [place] not to be malignancy. Prostate cancer Small bowel obstruction Type 2 diabetes mellitus Surgical History (Updated 08/15/19 @ 12:11 by Kevan Martin Jr, MD, FAC) History of lumbar surgery Hx of cholecystectomy Family History (Updated 08/15/19 @ 12:07 by Kevan Martin Jr, MD, FACC) Father Cancer Mother Cancer Brother Coronary heart disease Other Family history non-contributory Social History (Updated 08/15/19 @ 12:06 by Kevan Martin Jr, MD, [facility]) Preferred Language: Turkmen Communication Ability: Effective Mold Press Operator Required: No Beliefs That Will Affect Care: None marital status: / Current Living Situation: Family Current Living Situation Comment: Lives with son current occupational status: retired Feels Safe at Home: Yes Safety Concerns: Feels Safe At This Time Smoking Status: Former smoker Tobacco Type: pipe ; Do You Dip or Chew Tobacco: No ; Hx Alcohol Use: No Hx Substance Use: No Review of Systems Review of Systems: All systems reviewed & are unremarkable except as noted in HPI & below Physical Exam Constitutional: WD/WN, vitals as above Eyes: + anicteric sclerae; normal pupil size ENMT: external ear and nose normal, oropharynx normal Neck: trachea midline, no thyromegaly Respiratory: normal respiratory effort, lungs clear to auscultation Cardiovascular: Rate/Rhythm: regular rhythm and + bradycardic Heart Sounds: + murmur (4/6 SAMARA RUSB) Vessels: no JVD Gastrointestinal (Abdomen): normal bowel sounds, soft, nontender, no hepatosplenomegaly Musculoskeletal: no cyanosis or clubbing, extremities motor strength 5/5 Skin: no rashes, warm and dry Neurologic: moves all extremities and awake; no focal motor deficits and not confused Motor/Sensory: no sensory deficit Psychiatric: A+Ox3, euthymic affect Genitourinary: no CVA tenderness Lymphatic: no cervical or axillary lymphadenopathy Results & Data Results & Data ([facility]) Vital Signs (Past 12 Hours) Vital Signs Temp Pulse Resp BP Pulse Ox 09/13/19 12:00 49 L 18 158/60 H 94 09/13/19 11:30 54 L 22 165/62 H 97 09/13/19 11:00 51 L 19 154/59 H 92 09/13/19 10:46 54 L 18 176/58 H 95 09/13/19 10:44 55 L 15 146/61 H 95 09/13/19 10:42 51 L 18 152/57 H 94 09/13/19 10:27 100 09/13/19 10:14 52 L 20 140/56 L 96 09/13/19 09:47 36.6 C 56 L 16 180/67 H [address] head/brain wo con IMPRESSION: No acute intracranial abnormality or calvarial fracture. XR ribs LT min 3V w CXR1V IMPRESSION: 1. Cardiomegaly without acute cardiopulmonary abnormality. 2. No pneumothorax or acute rib fracture identified. Code Status & VTE Plan Code Status DNR/DNI as discussed with the patient and his daughter VTE Prophylaxis Plan VTE Prophylaxis will be ordered: Yes PG Care Time/CCT Total # of Minutes Spent Total Time Spent with Patient: Total time spent is greater than 50% in coordination of care (as documented) at patient's floor/unit and/or counseling patient: Coding Level of Care Code 18942 Initial Inpt Care Lvl 3 Diagnoses Dizziness R42 Fall W19.XXXA Encounter type: initial encounter Abrasion of elbow, left S50.312A Type 2 diabetes mellitus E11.9 Prostate cancer C61 CAD (coronary artery disease) I25.10 Aortic stenosis I35.0 Cardiac valve disease etiology: etiology unspecified Asymptomatic bacteriuria R82.71 Hypertension I10 CHF (congestive heart failure) I50.32 Heart failure chronicity: chronic Heart failure type: diastolic DVT prophylaxis Z29.9 (1) CHF (congestive heart failure) Heart failure chronicity: chronic Heart failure type: diastolic Qualified Code(s): I50.32 - Chronic diastolic (congestive) heart failure (2) Aortic stenosis Cardiac valve disease etiology: etiology unspecified Qualified Code(s): I35.0 - Nonrheumatic aortic (valve) stenosis (3) Fall Encounter type: initial encounter Qualified Code(s): W19.XXXA - Unspecified fall, initial encounter
[2019-09-13] MEDS ORDERED: MECLIZINE HCL 25 MG TAB PO PRN (13:24)
--- NOTE | 2019-09-13 13:37 | Electrocardiogram Report ---
Test Reason : Blood Pressure : / mmHG Vent. Rate : 056 BPM Atrial Rate : 056 BPM P-R Int : 216 ms QRS Dur : 094 ms QT Int : 456 ms P-R-T Axes : 069 -17 053 degrees QTc Int : 440 ms Poor data quality, interpretation may be adversely affected Sinus bradycardia with 1st degree A-V block with Premature atrial complexes Nonspecific T wave abnormality Abnormal ECG When compared with ECG of 13-MAY-2019 09:25, Premature atrial complexes are now Present Nonspecific T wave abnormality, improved in Inferior leads Nonspecific T wave abnormality no longer evident in Anterior leads Confirmed by Fadi Mckeon ([id number]) on 09/13/2019 1:36:59 PM Referred By: REFERRED SELF Confirmed By:Fadi Mckeon
[2019-09-13] MEDS ORDERED: GLUCOSE 10 TABS/TUBE PO PRN (14:17)
[2019-09-13] MEDS ORDERED: ONDANSETRON INJ 2 MG/ML 2 ML VIAL IV PRN (14:17)
[2019-09-13] MEDS ORDERED: DEXTROSE 50% 50 ML SYRINGE IV PRN (14:17)
[2019-09-13] MEDS ORDERED: POLYETHYLENE (MIRALAX) 17 GM PACK PO PRN (14:17)
[2019-09-13] MEDS ORDERED: FUROSEMIDE 40 MG TAB PO ONE (14:17)
[2019-09-13] MEDS ORDERED: ZOLPIDEM TARTRATE 5 MG TAB PO PRN (14:17)
[2019-09-13] MEDS ORDERED: ACETAMINOPHEN 325 MG TAB PO PRN (14:17)
[2019-09-13] MEDS ORDERED: lisinopriL 5 MG TAB PO ONE (14:17)
[2019-09-13] MEDS ORDERED: AMLODIPINE BESYLATE 5 MG TAB PO ONE (14:17)
[2019-09-13] MEDS ORDERED: GLUCOSE 40% GEL 15 GM TUBE PO PRN (14:17)
[2019-09-13] MEDS ORDERED: GLUCAGON FOR INJ 1 MG VIAL SQ PRN (14:17)
[2019-09-13] MEDS ORDERED: METOPROLOL TARTRATE 25 MG TAB PO ONE (14:17)
[2019-09-13] MEDS ORDERED: ISOSORBIDE MONO EXTENDED REL 30 MG TABCR PO ONE (14:17)
[2019-09-13] MEDS ORDERED: CARBOHYDRATES FOR HYPOGLYCEMIA PO PRN (14:17)
[2019-09-13] MEDS ORDERED: PATIENT'S HEIGHT AND/OR WEIGHT NEEDED SCH (14:30)
[2019-09-13] MEDS: FERROUS GLUCONATE 324 MG TAB PO SCH ×2 (15:35→20:41)
[2019-09-13] MEDS: INSULIN ASPART 100 UNITS/ML 3 ML PEN SC SCH ×2 (15:37→20:41)
[2019-09-13] MEDS: METOPROLOL TARTRATE 25 MG TAB PO SCH (20:40)
[2019-09-13] MEDS ORDERED: SIMVASTATIN 40 MG TAB PO SCH (21:00)
[2019-09-13] MEDS ORDERED: ENOXAPARIN INJ 40 MG/0.4 ML SYR SQ SCH (21:00)
[2019-09-13] MEDS ORDERED: DOCUSATE SODIUM 100 MG CAP PO SCH (21:00)
[2019-09-14 06:03] LABS: Basophils # (auto) 0.05 K/uL (0-0.2); Basophils % (auto) 0.5 %; Eosinophils % (auto) 3.1 %; Hematocrit (blood only) 36.6 % (42-52); Hemoglobin 11.7 g/dL (14.0-18.0); Immature Granulocytes # (auto) 0.05 K/uL (0.00-0.02); Immature Granulocytes % (auto) 0.5 %; Lymphocytes # (auto) 1.56 K/uL (1.2-3.4); Lymphocytes % (auto) 16.1 %; Mean Corpuscular Volume 87.6 fL (80-100); Mean Platelet Volume 12.7 fL (7.4-10.4); Monocytes # (auto) 0.86 K/uL (0.11-0.59); Monocytes % (auto) 8.9 %; Neutrophils # (auto) 6.87 K/uL (1.4-6.5); Neutrophils % (auto) 70.9 %; Platelet Count 166 K/uL (130-400); RDW Coefficient of Variation 14.2 % (11.5-14.5); RDW Standard Deviation 45.4 fL (36.4-46.3); Red Blood Count 4.18 M/uL (4.7-6.1); White Blood Count 9.69 K/uL (4.8-10.8)
[2019-09-14 06:19] LABS: BUN Creatinine Ratio 26.4 (10-20); Calcium 8.3 mg/dl (8.5-10.1); Creatinine Clr Calc Pharmacy 57.5 ml/min; Est GFR (African American) 88.1; Potassium 3.8 mmol/L (3.5-5.1)
[2019-09-14] MEDS ORDERED: LEVOTHYROXINE SODIUM 112 MCG TABLET PO SCH (06:30)
[2019-09-14] MEDS: METOPROLOL TARTRATE 25 MG TAB PO SCH (07:54)
[2019-09-14] MEDS: FERROUS GLUCONATE 324 MG TAB PO SCH ×2 (07:55→14:17)
[2019-09-14] MEDS: INSULIN ASPART 100 UNITS/ML 3 ML PEN SC SCH ×2 (08:06→12:01)
[2019-09-14] MEDS ORDERED: lisinopriL 5 MG TAB PO SCH (09:00)
[2019-09-14] MEDS ORDERED: PREGABALIN 75 MG CAP PO SCH (09:00)
[2019-09-14] MEDS ORDERED: AMLODIPINE BESYLATE 5 MG TAB PO SCH (09:00)
[2019-09-14] MEDS ORDERED: FUROSEMIDE 40 MG TAB PO SCH (09:00)
[2019-09-14] MEDS ORDERED: CHOLECALCIFEROL 1,000 UNITS 25 MCG TAB PO SCH (09:00)
[2019-09-14] MEDS ORDERED: ISOSORBIDE MONO EXTENDED REL 30 MG TABCR PO SCH (09:00)
--- NOTE | 2019-09-14 11:09 | Discharge Summary ---
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 He describes his dizziness as the room spinning. No light-headedness of loss of consciousness. Last similar episode 5-6 years ago which lasted for minutes. He was previously prescribed meclizine for this but never had to take it given infrequency of episodes. Initially had planned on discharging home from the ER but patient was still significantly dizzy when trying to walk around the room. Admission Exam Per Admitting Provider Constitutional: WD/WN, vitals as above Eyes: + anicteric sclerae; normal pupil size ENMT: external ear and nose normal, oropharynx normal Neck: trachea midline, no thyromegaly Respiratory: normal respiratory effort, lungs clear to auscultation Cardiovascular: Rate/Rhythm: regular rhythm and + bradycardic Heart Sounds: + murmur (4/6 SAMARA RUSB) Vessels: no JVD Gastrointestinal (Abdomen): normal bowel sounds, soft, nontender, no hepatosplenomegaly Musculoskeletal: no cyanosis or clubbing, extremities motor strength 5/5 Skin: no rashes, warm and dry Neurologic: moves all extremities and awake; no focal motor deficits and not confused Motor/Sensory: no sensory deficit Psychiatric: A+Ox3, euthymic affect Genitourinary: no CVA tenderness Lymphatic: no cervical or axillary lymphadenopathy Principal Diagnosis 1. Vertigo, likely BPPV, now resolved 2. Type 2 diabetes mellitus 3. Prostate cancer by history 4. His coronary artery disease by history 5. Asymptomatic bacteriuria, likely secondary to self cath. Discharge Data Allergies Allergy/AdvReac Type Severity Reaction Status Date / Time Sulfa (Sulfonamide Allergy Unknown RASH Verified 09/13/19 10:07 Antibiotics) Consultations 09/13/19 12:44 ED Decision to Admit Stat 09/13/19 14:17 Consult Case Management - Discharge Planning Routine Ordered Studies 09/13/19 09:47 CT head/brain wo con Stat CT head/brain wo con CLINICAL HISTORY: 88 years-old Male with fall, dizzy, CHI. Acute dizziness status post fall. Acute headache TECHNIQUE: Multiple axial CT images of the head were obtained without contrast. A dose lowering technique was utilized adhering to the principles of ALARA. CT DOSE: 614.27 mGy.cm COMPARISON: Brain MRI 07/08/2013 FINDINGS: No acute intracranial hemorrhage, midline shift, intracranial mass, hydrocephalus, territorial ischemia or abnormal extra-axial collection. Age- related involutional changes with mild ex vacuo ventriculomegaly. Mild patchy white matter hypodensities suggest chronic microvascular ischemic disease. Study is mildly motion degraded. The calvarium is intact. Hypoplastic frontal sinuses. Prior bilateral cataract repair. The paranasal sinuses, mastoid air cells, and middle ear cavities are clear. IMPRESSION: No acute intracranial abnormality or calvarial fracture. Hospital Course (1) Dizziness: Acute onset. Similar to prior episodic episodes (although these occur infrequently are consistent with BPPV). Patient was observed overnight. When I saw the next wearing told me his dizziness is complete resolved. I reviewed the MAR and found that the patient did not receive any meclizine overnight as it was ordered as a as needed. Therefore, the patient will be discharged with prescription if he needs it. I did ask PT/OT to evaluate to ensure that he is stable on his feet is an 88-year-old gentleman with multiple medical problems. I do also agree with Dr. An and decreasing the patient metoprolol for bradycardia. His pulse is currently 52 and he is mildly hypertensive at 161/69. (2) Fall: Due to vertigo above. Mild left elbow abrasion as result. No groin pain on hip rotation or walking. CT head with no acute abnormality. (3) Abrasion of elbow, left: Dressed in ER. (4) Type 2 diabetes mellitus: T2DM diet HbA1C 7.7 in Jul; no need to repeat Patient is on metformin which can be continued. I also agree with keeping the patient slightly hyperglycemic to reduce episodes of hypoglycemia after he leaves hospital. (5) Prostate cancer: Unknown staging. His daughter reports stage 4 although no urology c onfirmation of this and cysts in pancreas assumed not to be malignant. On 6 monthly Eliguard injections (next due in September). Straight cath Q8H while here. Can resume daily on discharge. (6) CAD (coronary artery disease): Unclear why he is not on ASA. Continue BB, ACEi, statin (higher dose simvastatin but no myalgias related to this). (7) Aortic stenosis: Do not suspect to be contributory towards current dizziness given acute complaint and good ambulation yesterday without dizziness. Severe with no plan for intervention as per his daughter. (8) Asymptomatic bacteriuria: As described by his daughter his urine always has bacteria in it when they do tests prior to Eliguard injections. No symptoms suggestive of current infection. Dizziness is very vertigo sounding based on movement therefore do not feel this is contributory. (9) Hypertension: Continue usual antihypertensives; amlodipine, ISMN, lisinopril, metoprolol (will reduce dose slightly as even with missing his dose this morning his HR is running in 50s). (10) CHF (congestive heart failure): Chronic valvular heart failure. At baseline leg swelling and SOB as per patient and his daughter. No acute exacerbation. (11) DVT prophylaxis: Lovenox 40mg SQ HS. Total Time Total Time Spent Total Time Spent (In Minutes): Preparation of discharge in excess of 30 minutes. Discharge Plan Discharge Items Patient Disposition: Home - Self-Care Reason For Visit: DIZZINESS Discharge Diagnosis: 1. Vertigo, felt to be BPPV 2. Asymptomatic bacteriuria by history, patient self caths 3. Type 2 diabetes mellitus 4. Hypertension by history 5. Dyslipidemia by history Condition on Discharge: Good Activity: Resume your previous activity Lifting: Gradually increase as tolerated Bathing: No limitations Sexual Activity: When tolerated Driving/Machine Use: No limitations Weightbearing: Full weightbearing Non-emergency contact: Primary Care Provider Call non-emergency contact if: your symptoms worsen Follow-up/Referrals: Morteza Crespo MD [Primary Care Provider] - Diet: Carb Consistent or DM2 Addtl Attending Provider Instructions: If vertigo recurs and is severe, presents emergency room for further evaluation Pending Studies at Discharge: No Stand-Alone Forms: [employer] Smoking Cessation Medications and DC Order Prescriptions: New meclizine 25 mg Tablet 25 mg PO Q8H PRN (Reason: dizziness) Qty: 30 RF: 0 metoprolol tartrate 25 mg Tablet 25 mg PO BID Qty: 60 RF: 0 Continued glucosamine-chondroitin [Osteo Bi-Flex] 250-200 mg Tablet 1 tab PO DAILY Qty: 0 RF: 0 levothyroxine [Synthroid] 112 mcg Tablet 112 mcg PO DAILY Qty: 0 RF: 0 docusate sodium 100 mg Capsule 100 mg PO HS Qty: 0 RF: 0 metformin [Glucophage] 500 mg Tablet 500 mg PO BID Qty: 0 RF: 0 potassium chloride 10 mEq Tablet Extended Release 10 meq PO BID Qty: 0 RF: 0 isosorbide mononitrate 60 mg Tablet Extended Release 24 Hr 30 mg PO DAILY Qty: 0 RF: 0 furosemide [Lasix] 40 mg Tablet 40 mg PO DAILY Qty: 0 RF: 0 Caltrate + D3 Plus Minerals 300 mg-800 unit -25 mg-0.5 mg Tablet 1 tab PO DAILY Qty: 0 RF: 0 thiamine HCl (vitamin B1) [Vitamin B-1] 50 mg Tablet 50 mg PO QAM Qty: 0 RF: 0 cholecalciferol (vitamin D3) 25 mcg (1,000 unit) capsule 1,000 units PO DAILY RF: 0 nitroglycerin 0.4 mg tablet, sublingual 0.4 mg sublingual UD Qty: 25 RF: 1 lisinopril 5 mg Tablet 5 mg PO DAILY RF: 0 pregabalin [Lyrica] 75 mg capsule 75 mg PO DAILY RF: 0 omega [id number] oil [Fish Oil] 1,000 mg (120 mg-180 mg) Capsule 1 cap PO DAILY RF: 0 amlodipine 10 mg tablet 10 mg PO DAILY RF: 0 zolpidem 5 mg tablet 5 mg PO HS PRN (Reason: Sleep) RF: 0 ferrous gluconate 324 mg (38 mg iron) tablet 324 mg PO TID RF: 0 simvastatin 40 mg Tablet 40 mg PO HS RF: 0 Discontinued metoprolol tartrate [Lopressor] 50 mg Tablet 50 mg PO BID Qty: 0 RF: 0 Discharge Orders: Discharge Order (Routine); Ordered 09/14/19 Ordered By: Aleks Lyle Admission Data Admit Date/Time: 09/13/19 12:45 Attending Provider: Aleks Lyle Admit Provider: Jamshid An Primary Care Provider: Morteza Crespo Other Providers: Jamshid An Coding Level of Care Code D/C Day Management >30 mins Diagnoses Dizziness R42 Fall W19.XXXA Encounter type: initial encounter Abrasion of elbow, left S50.312A Type 2 diabetes mellitus E11.9 Prostate cancer C61 CAD (coronary artery disease) I25.10 Aortic stenosis I35.0 Cardiac valve disease etiology: etiology unspecified Asymptomatic bacteriuria R82.71 Hypertension I10 CHF (congestive heart failure) I50.32 Heart failure type: diastolic Heart failure chronicity: chronic DVT prophylaxis Z29.9
== END 2019-09-14 15:30 | disposition home or self-care (01) ==
LOC: 2W 09:24 → ED 09:24 → SUATTDRO 12:45 → 2W 14:10

== ENCOUNTER 2020-05-09 13:51 | Inpatient (IN) ==
[2020-05-09] MEDS ORDERED: DEXAMETHASONE SOD INJ 10 MG/ML VIAL IV ONE (14:11)
[2020-05-09] MEDS ORDERED: ALBUTEROL HFA 8 GM INHALER INH ONE (14:11)
[2020-05-09] MEDS ORDERED: CEFEPIME 2,000 MG/20 ML VIAL IV STA (14:11)
--- NOTE | 2020-05-09 14:20 | Emergency Department Note ---
Impression & Plan Hypoxia, CHF (congestive heart failure), Pneumonia, Elevated troponin, Acute hyperglycemia, COVID-19 ED Provider Note NAME: DANI PINO AGE: 89 SEX: M : 1930 ARRIVES VIA: Walk-In INFORMANT: [Patient][son] ED PROVIDER(S): [Freddie Smith MD] CHIEF COMPLAINT: Short of breath HISTORY OF PRESENT ILLNESS: Patient is an 89-year-old male with heart disease and aortic stenosis. As per his son, 5 days ago, the patient began having chills and shakes. 3 days ago he began to seem short of breath. His breathing has worsened in the last 24 hours. The patient went to his doctor's office and was referred to the ED because of a low O2 saturation. Patient has not been coughing, there has been no documented fever. He has not complained of any chest pain. There has been some loose stool, no vomiting. The patient has no known coronavirus exposures. The patient has not yet been tested for COVID-19. There are no sick contacts around him in his home, no family contacts are ill. REVIEW OF SYSTEMS: See HPI for pertinent positives and negatives. A total of ten systems were reviewed and were otherwise negative. PMHx/PSHx: See Below SOCIAL HISTORY: See Below. PHYSICAL EXAM: GENERAL: Patient is in moderate respiratory distress. HEENT: No acute trauma, normocephalic atraumatic, mucous membranes moist, no nasal congestion, no scleral icterus. NECK: No stridor, no adenopathy, no meningismus, trachea is midline. LUNGS: Moderate respiratory distress, increased respiratory rate. No obvious wheeze. HEART: Tachycardic, regular rhythm, equal radial pulses bilaterally. ABDOMEN: Soft, nontender, bowel sounds positive, no hernias, no peritonitis. EXTREMITIES: No cyanosis, moderate bilateral pedal edema, full range of motion of all the joints without pain or difficulty, no signs for acute trauma. NEUROLOGIC: Awake and alert, no acute motor or sensory deficits, no focal weakness. SKIN: No rash, no jaundice, no diaphoresis. Pale. DIFFERENTIAL DIAGNOSIS: Sepsis, UTI, pneumonia, influenza, COVID-19, CHF, NH, dysrhythmia, electrolyte abnormalities, cardiac sources, intracerebral event, toxicologic, neurologic, as well as other pathologies. EMERGENCY DEPARTMENT COURSE/PROCEDURES: ECG: Indication was shortness of breath. The ECG shows a sinus rhythm with some PVCs. The rate was 92. There was LVH present. There was some ST depression seen in a few of the lateral leads. No ST elevation. The QTc was 573. Compared to an ECG from 13 September 2019, the lateral ST depressions are new. Criteria for LVH is now present. The rate has increased. Continuous Cardiac Monitoring: An order was placed for continuous cardiac monitoring. The monitor shows a rate of 90 with sinus rhythm with some PVCs. Critical Care Note: I have personally spent 52 minutes of critical care time in the direct management of this patient. This includes bedside care, interpretation of diagnostic studies, and testing, discussion with consultants, patient, and family members, and other required patient management activities. This 52 minutes is in excess of all separately billable procedures. MEDICAL DECISION MAKING: There is a moderate leukocytosis which would be consistent with infection. Patient is anemic but he carries a history of the same. There is a normal platelet count. No coagulopathy. D-dimer is elevated at over 2000, this elevation is consistent with COVID-19. Glucose was initially quite high at 329, repeat BSG sometime later showed a lower value at 271. There was no kidney failure. No concerning liver enzyme elevation. Lactic acid level was elevated at over 5, I suspect this is from his hypoxia more so than sepsis. ECG shows a sinus rhythm with some ST depressions. LVH was present. No ST elevation. Cardiac troponin was elevated at 1.1 consistent with cardiac strain/injury or possibly even mismatch. BNP was quite high at over 28,000, this is consistent with fluid overload/CHF. Chest x-ray shows what appears to be a bilateral pneumonia, a component of CHF was also thought possible.. Covid testing returned positive. Influenza testing returned negative. Urinalysis does not show any signs of infection. On exam, the patient was quite dyspneic and seemed to be in some distress. The patient was aggressively managed. He was placed on high flow O2, Vapotherm. He received IV Decadron as he was hypoxic with a Covid pneumonia. Patient was given nitroglycerin paste to help with his CHF. He received IV Lasix for the fluid overload. He received IV insulin for the higher blood sugar. He received albuterol via MDI. Patient received IV cefepime as empiric antibiotic coverage. Patient was not given a large amount of IV fluid, he has a Covid infection, he has a history of CHF. Fluid hydration was felt contraindicated. The patient has made some improvement with the above treatment. His O2 saturation is now in the upper 80s to low 90s. He is more comfortable. I spoke with the patient's son. The patient is being hospitalized. The son understands the seriousness of his father's condition. The patient is to be intubated if his respiratory status were to worsen. He is a full code currently. I spoke with case management, the on-call hospitalist has been consulted. Patient's condition is quite serious. Past Med/Surg History Medical History (Updated 05/09/20 @ 18:01 by Freddie Smith MD) Acute dyspnea Acute UTI Anemia Aortic stenosis Bilateral edema of lower extremity CAD (coronary artery disease) Cervical spine disease CHF (congestive heart failure) Contusion of rib on right side Dyslipidemia Elevated brain natriuretic peptide (BNP) level Fall Hypertension Osteoarthritis Pancreatic cyst MRI abd 06/26/18. Multiple cysts. [place] not to be malignancy. Prostate cancer Small bowel obstruction Type 2 diabetes mellitus Surgical History History of lumbar surgery Hx of cholecystectomy Family History Father Cancer Mother Cancer Brother Coronary heart disease Other Family history non-contributory Social History Smoking Status: Former smoker Hx Alcohol Use: No Hx Substance Use: No Preferred Language: Greenlandic Communication Ability: Effective Supervisor Cell Maintenance Required: No Beliefs That Will Affect Care: None marital status: / Current Living Situation: Family Current Living Situation Comment: Lives with son current occupational status: retired Feels Safe at Home: Yes Assistive Devices: Glasses and Hearing Aid - Bilateral Allergies Allergies Allergy/AdvReac Type Severity Reaction Status Date / Time Sulfa (Sulfonamide Allergy Unknown RASH Verified 05/09/20 17:39 Antibiotics) Home Meds Home Medications Medication Instructions Recorded Confirmed levothyroxine [Synthroid] 112 mcg PO DAILY #0 02/28/13 05/09/20 Caltrate + D3 Plus Minerals 1 tab PO DAILY #0 07/11/17 05/09/20 isosorbide mononitrate 30 mg PO DAILY #0 tab 07/11/17 05/09/20 lisinopril 2.5 mg PO DAILY 05/13/19 05/09/20 simvastatin 40 mg PO HS 09/13/19 05/09/20 furosemide 40 mg tablet 40 mg PO DAILY #0 tab 03/15/20 05/09/20 metformin 500 mg tablet 500 mg PO BID #0 tab 03/15/20 05/09/20 potassium chloride 10 mEq 10 meq PO BID #0 cap 03/15/20 05/09/20 tablet,extended release pregabalin 75 mg capsule 75 mg PO BID cap 03/15/20 05/09/20 amlodipine 10 mg PO DAILY 05/09/20 05/09/20 ferrous gluconate 324 mg PO TID 05/09/20 05/09/20 metoprolol tartrate 25 mg PO BID 05/09/20 05/09/20 nitroglycerin 0.4 mg SUBLINGUAL .PRN/UD 05/09/20 05/09/20 zolpidem 5 mg PO HS PRN 05/09/20 05/09/20 Previous Rx's Medication Instructions Recorded fluocinonide 0.05 % topical 1 applic TOPICAL BID #30 g 02/03/20 ointment ketoconazole 2 % topical cream 1 applic TOPICAL BID #60 g 02/03/20 Results & Data (ED) Vital Signs Vital Signs - 24 hr 05/09/20 13:54 05/09/20 14:12 05/09/20 14:15 Temperature 36.0 C L Temperature Source Oral Pulse Rate 96 H 108 H 108 H Pulse Rate [Finger] Pulse Rate from SpO2 Sensor 109 H 108 H Respiratory Rate 27 H 54 H 42 H Respiratory Effort / Characteristics Short of Breath Respiratory Depth Shallow Blood Pressure 136/78 Blood Pressure Mean 97 Pulse Oximetry 63 L 81 L 81 L Oxygen Delivery Method Room Air Non-rebreather Non-rebreather Oxygen Flow Rate Fraction of Inspired Oxygen SaO2/FiO2 Ratio Sepsis Recent Fever Within 48 Hours Yes Sepsis New/Unexplained Change in Mental Status No Sepsis Action Taken by Nursing No Action Required 05/09/20 14:24 05/09/20 14:30 05/09/20 14:42 Temperature Temperature Source Pulse Rate 104 H 103 H Pulse Rate [Finger] 97 H Pulse Rate from SpO2 Sensor 104 H 102 H Respiratory Rate 52 H 51 H 32 H Respiratory Effort / Characteristics Spontaneous Labored Retracting Short of Breath Respiratory Depth Blood Pressure 125/73 Blood Pressure Mean 81 Pulse Oximetry 85 L 87 L 86 L Oxygen Delivery Method Non-rebreather High Flow Nasal Cannula High Flow Nasal Cannula Oxygen Flow Rate 40 Fraction of Inspired Oxygen 100 SaO2/FiO2 Ratio Sepsis Recent Fever Within 48 Hours Sepsis New/Unexplained Change in Mental Status Sepsis Action Taken by Nursing 05/09/20 14:45 05/09/20 15:00 05/09/20 15:13 Temperature Temperature Source Pulse Rate 100 H 92 H 94 H Pulse Rate [Finger] Pulse Rate from SpO2 Sensor 100 H 90 89 Respiratory Rate 32 H 44 H 35 H Respiratory Effort / Characteristics Spontaneous Labored Retracting Short of Breath Respiratory Depth Shallow Blood Pressure 120/70 Blood Pressure Mean 91 Pulse Oximetry 84 L 91 89 L Oxygen Delivery Method High Flow Nasal Cannula High Flow Nasal Cannula High Flow Nasal Cannula Oxygen Flow Rate 40 Fraction of Inspired Oxygen 100 SaO2/FiO2 Ratio 87 Sepsis Recent Fever Within 48 Hours Sepsis New/Unexplained Change in Mental Status Sepsis Action Taken by Nursing 05/09/20 15:15 05/09/20 15:16 05/09/20 15:30 Temperature Temperature Source Pulse Rate 94 H 96 H 89 Pulse Rate [Finger] Pulse Rate from SpO2 Sensor 85 98 H 78 Respiratory Rate 26 H 28 H 36 H Respiratory Effort / Characteristics Respiratory Depth Blood Pressure 130/61 132/66 Blood Pressure Mean 94 87 Pulse Oximetry 89 L 90 88 L Oxygen Delivery Method High Flow Nasal Cannula High Flow Nasal Cannula High Flow Nasal Cannula Oxygen Flow Rate Fraction of Inspired Oxygen SaO2/FiO2 Ratio Sepsis Recent Fever Within 48 Hours Sepsis New/Unexplained Change in Mental Status Sepsis Action Taken by Nursing 05/09/20 15:31 05/09/20 15:45 05/09/20 15:46 Temperature Temperature Source Pulse Rate 89 91 H 91 H Pulse Rate [Finger] Pulse Rate from SpO2 Sensor 87 91 H 91 H Respiratory Rate 35 H 38 H 45 H Respiratory Effort / Characteristics Respiratory Depth Blood Pressure 129/65 Blood Pressure Mean 91 Pulse Oximetry 87 L 88 L 86 L Oxygen Delivery Method High Flow Nasal Cannula High Flow Nasal Cannula High Flow Nasal Cannula Oxygen Flow Rate Fraction of Inspired Oxygen SaO2/FiO2 Ratio Sepsis Recent Fever Within 48 Hours Sepsis New/Unexplained Change in Mental Status Sepsis Action Taken by Nursing 05/09/20 16:00 05/09/20 16:01 05/09/20 16:15 Temperature Temperature Source Pulse Rate 89 87 88 Pulse Rate [Finger] Pulse Rate from SpO2 Sensor 85 84 84 Respiratory Rate 40 H 38 H 46 H Respiratory Effort / Characteristics Spontaneous Labored Retracting Short of Breath Respiratory Depth Blood Pressure 129/67 139/63 Blood Pressure Mean 90 78 Pulse Oximetry 86 L 85 L 84 L Oxygen Delivery Method High Flow Nasal Cannula High Flow Nasal Cannula High Flow Nasal Cannula Oxygen Flow Rate 40 Fraction of Inspired Oxygen 100 SaO2/FiO2 Ratio 87 Sepsis Recent Fever Within 48 Hours Sepsis New/Unexplained Change in Mental Status Sepsis Action Taken by Nursing 05/09/20 16:16 05/09/20 16:30 05/09/20 16:31 Temperature Temperature Source Pulse Rate 90 89 90 Pulse Rate [Finger] Pulse Rate from SpO2 Sensor 90 88 90 Respiratory Rate 40 H 46 H 26 H Respiratory Effort / Characteristics Respiratory Depth Blood Pressure 137/72 Blood Pressure Mean 108 Pulse Oximetry 84 L 93 92 Oxygen Delivery Method High Flow Nasal Cannula High Flow Nasal Cannula High Flow Nasal Cannula Oxygen Flow Rate Fraction of Inspired Oxygen SaO2/FiO2 Ratio Sepsis Recent Fever Within 48 Hours Sepsis New/Unexplained Change in Mental Status Sepsis Action Taken by Nursing 05/09/20 16:37 05/09/20 17:00 Temperature Temperature Source Pulse Rate Pulse Rate [Finger] Pulse Rate from SpO2 Sensor Respiratory Rate 26 H 26 H Respiratory Effort / Characteristics Spontaneous Labored Retracting Short of Breath Spontaneous Labored Short of Breath Respiratory Depth Blood Pressure Blood Pressure Mean Pulse Oximetry 92 90 Oxygen Delivery Method High Flow Nasal Cannula High Flow Nasal Cannula Oxygen Flow Rate 40 40 Fraction of Inspired Oxygen 100 100 SaO2/FiO2 Ratio 87 87 Sepsis Recent Fever Within 48 Hours Sepsis New/Unexplained Change in Mental Status Sepsis Action Taken by [facility] Medications Current Medication List: was personally reviewed by me Laboratory Data Attestation: I reviewed the patient's lab results. Result diagrams: 05/09/20 14:53 05/09/20 14:53 Lab Results 05/09/20 05/09/20 05/09/20 Range/Units 14:53 14:53 14:53 WBC (4.8-10.8) K/uL RBC (4.7-6.1) M/uL Hgb (14.0-18.0) g/dL Hct (42-52) % MCV (80-100) fL MCH (25-34) pg MCHC (32-36) g/dL RDW Std Deviation (36.4-46.3) fL RDW Coeff of Lucina (11.5-14.5) % Plt Count (130-400) K/uL MPV (7.4-10.4) fL Immature Gran % (Auto) % Neut % (Auto) % Lymph % (Auto) % [place] % (Auto) % Eos % (Auto) % Baso % (Auto) % Neut # (Auto) (1.4-6.5) K/uL Lymph # (Auto) (1.2-3.4) K/uL [place] # (Auto) (0.11-0.59) K/uL Eos # (Auto) (0-0.5) K/uL Baso # (Auto) (0-0.2) K/uL Immature Gran # (Auto) (0.00-0.02) K/uL PT 11.6 (9.0-12.0) Seconds INR 1.1 (0.9-1.1) APTT 30.6 (21.0-31.0) Seconds PTT Ratio 1.1 D-Dimer 2150 H* (0-500) ug/L FEU ABG pH (7.35-7.45) ABG pCO2 (35-46) mmHg ABG pO2 (80-95) mmHg ABG HCO3 (19-24) mmol/L ABG O2 Saturation (90-95) % ABG Base Excess (-9-1.8) mEq/L Joseph Test (Pos) Barometric Pressure mm/Hg Oxygen Given Sodium 135 L (136-145) mmol/L Potassium 3.6 (3.5-5.1) mmol/L Chloride 101 (98-107) mmol/L Carbon Dioxide 25 (21-32) mmol/L Anion Gap 9.0 (3-11) BUN 22 H (7-18) mg/dl Creatinine 1.17 (0.6-1.4) mg/dl Est Cr Clr Drug Dosing Not Reportable Est GFR ( Amer) 64.6 Est GFR (Non-Af Amer) 55.7 BUN/Creatinine Ratio 18.6 (10-20) Glucose 329 H* (70-99) mg/dl POC Glucose (70-99) mg/dl Lactate (0.4-2.0) mmol/L Calcium 8.2 L (8.5-10.1) mg/dl Magnesium 2.1 (1.8-2.4) mg/dl Total Bilirubin 0.6 (0.2-1) mg/dl AST 50 H (15-37) U/L ALT 35 (12-78) U/L Alkaline Phosphatase 49 (45-117) U/L Troponin I 1.120 H* (0-0.045) ng/ml NT-Pro-B Natriuret Pep 30290 H (0-1800) pg/ml Total Protein 6.9 (6.4-8.2) gm/dl Albumin 2.7 L (3.4-5.0) gm/dl Globulin 4.2 H (2.5-4.0) gm/dl Albumin/Globulin Ratio 0.6 L (0.9-2) Beta-Hydroxybutyric Acd 2.48 (0.2-2.81) mg/dl Procalcitonin 0.14 (0-0.5) ng/ml Urine Color Urine Appearance (Clear) Urine pH (4.5-7.5) Ur Specific [place] (1.000-1.030) Urine Protein (Negative) Urine Glucose (UA) (Negative) Urine Ketones (Negative) Urine Blood (Negative) Urine Nitrite (Negative) Urine Bilirubin (Negative) Urine Urobilinogen (Negative) Ur Leukocyte Esterase (Negative) Urine RBC (0-4) /hpf Urine WBC (0-5) /hpf Ur Epithelial Cells (0-5) /lpf Amorphous Sediment (None Prsent) Urine Bacteria (Negative) COVID-19 Eval Order Influ A Molecular Assay (Negative) Influ B Molecular Assay (Negative) SARS-CoV-2, RNA, NAAT (NEGATIVE) 05/09/20 05/09/20 05/09/20 Range/Units 14:53 14:53 15:00 WBC 17.79 H (4.8-10.8) K/uL RBC 4.37 L (4.7-6.1) M/uL Hgb 12.2 L (14.0-18.0) g/dL Hct 37.6 L (42-52) % MCV 86.0 (80-100) fL MCH 27.9 (25-34) pg MCHC 32.4 (32-36) g/dL RDW Std Deviation 42.6 (36.4-46.3) fL RDW Coeff of Lucina 13.5 (11.5-14.5) % Plt Count 169 (130-400) K/uL MPV 12.5 H (7.4-10.4) fL Immature Gran % (Auto) 0.4 % Neut % (Auto) 94.5 % Lymph % (Auto) 1.3 % [place] % (Auto) 3.7 % Eos % (Auto) 0.0 % Baso % (Auto) 0.1 % Neut # (Auto) 16.81 H (1.4-6.5) K/uL Lymph # (Auto) 0.24 L (1.2-3.4) K/uL [place] # (Auto) 0.66 H (0.11-0.59) K/uL Eos # (Auto) 0.00 (0-0.5) K/uL Baso # (Auto) 0.01 (0-0.2) K/uL Immature Gran # (Auto) 0.07 H (0.00-0.02) K/uL PT (9.0-12.0) Seconds INR (0.9-1.1) APTT (21.0-31.0) Seconds PTT Ratio D-Dimer (0-500) ug/L FEU ABG pH (7.35-7.45) ABG pCO2 (35-46) mmHg ABG pO2 (80-95) mmHg ABG HCO3 (19-24) mmol/L ABG O2 Saturation (90-95) % ABG Base Excess (-9-1.8) mEq/L Joseph Test (Pos) Barometric Pressure mm/Hg Oxygen Given Sodium (136-145) mmol/L Potassium (3.5-5.1) mmol/L Chloride (98-107) mmol/L Carbon Dioxide (21-32) mmol/L Anion Gap (3-11) BUN (7-18) mg/dl Creatinine (0.6-1.4) mg/dl Est Cr Clr Drug Dosing Est GFR ( Amer) Est GFR (Non-Af Amer) BUN/Creatinine Ratio (10-20) Glucose (70-99) mg/dl POC Glucose (70-99) mg/dl Lactate 5.6 H* (0.4-2.0) mmol/L Calcium (8.5-10.1) mg/dl Magnesium (1.8-2.4) mg/dl Total Bilirubin (0.2-1) mg/dl AST (15-37) U/L ALT (12-78) U/L Alkaline Phosphatase (45-117) U/L Troponin I (0-0.045) ng/ml NT-Pro-B Natriuret Pep (0-1800) pg/ml Total Protein (6.4-8.2) gm/dl Albumin (3.4-5.0) gm/dl Globulin (2.5-4.0) gm/dl Albumin/Globulin Ratio (0.9-2) Beta-Hydroxybutyric Acd (0.2-2.81) mg/dl Procalcitonin (0-0.5) ng/ml Urine Color Urine Appearance (Clear) Urine pH (4.5-7.5) Ur Specific [place] (1.000-1.030) Urine Protein (Negative) Urine Glucose (UA) (Negative) Urine Ketones (Negative) Urine Blood (Negative) Urine Nitrite (Negative) Urine Bilirubin (Negative) Urine Urobilinogen (Negative) Ur Leukocyte Esterase (Negative) Urine RBC (0-4) /hpf Urine WBC (0-5) /hpf Ur Epithelial Cells (0-5) /lpf Amorphous Sediment (None Prsent) Urine Bacteria (Negative) COVID-19 Eval Order Influ A Molecular Assay Negative (Negative) Influ B Molecular Assay Negative (Negative) SARS-CoV-2, RNA, NAAT (NEGATIVE) 05/09/20 05/09/20 05/09/20 Range/Units 15:00 15:00 16:25 WBC (4.8-10.8) K/uL RBC (4.7-6.1) M/uL Hgb (14.0-18.0) g/dL Hct (42-52) % MCV (80-100) fL MCH (25-34) pg MCHC (32-36) g/dL RDW Std Deviation (36.4-46.3) fL RDW Coeff of Lucina (11.5-14.5) % Plt Count (130-400) K/uL MPV (7.4-10.4) fL Immature Gran % (Auto) % Neut % (Auto) % Lymph % (Auto) % [place] % (Auto) % Eos % (Auto) % Baso % (Auto) % Neut # (Auto) (1.4-6.5) K/uL Lymph # (Auto) (1.2-3.4) K/uL [place] # (Auto) (0.11-0.59) K/uL Eos # (Auto) (0-0.5) K/uL Baso # (Auto) (0-0.2) K/uL Immature Gran # (Auto) (0.00-0.02) K/uL PT (9.0-12.0) Seconds INR (0.9-1.1) APTT (21.0-31.0) Seconds PTT Ratio D-Dimer (0-500) ug/L FEU ABG pH 7.47 H (7.35-7.45) ABG pCO2 34 L (35-46) mmHg ABG pO2 51 L (80-95) mmHg ABG HCO3 24 (19-24) mmol/L ABG O2 Saturation 85.7 L (90-95) % ABG Base Excess 0.7 (-9-1.8) mEq/L Joseph Test Pos (Pos) Barometric Pressure 731.8 mm/Hg Oxygen Given 40% Sodium (136-145) mmol/L Potassium (3.5-5.1) mmol/L Chloride (98-107) mmol/L Carbon Dioxide (21-32) mmol/L Anion Gap (3-11) BUN (7-18) mg/dl Creatinine (0.6-1.4) mg/dl Est Cr Clr Drug Dosing Est GFR ( Amer) Est GFR (Non-Af Amer) BUN/Creatinine Ratio (10-20) Glucose (70-99) mg/dl POC Glucose (70-99) mg/dl Lactate (0.4-2.0) mmol/L Calcium (8.5-10.1) mg/dl Magnesium (1.8-2.4) mg/dl Total Bilirubin (0.2-1) mg/dl AST (15-37) U/L ALT (12-78) U/L Alkaline Phosphatase (45-117) U/L Troponin I (0-0.045) ng/ml NT-Pro-B Natriuret Pep (0-1800) pg/ml Total Protein (6.4-8.2) gm/dl Albumin (3.4-5.0) gm/dl Globulin (2.5-4.0) gm/dl Albumin/Globulin Ratio (0.9-2) Beta-Hydroxybutyric Acd (0.2-2.81) mg/dl Procalcitonin (0-0.5) ng/ml Urine Color Urine Appearance (Clear) Urine pH (4.5-7.5) Ur Specific [place] (1.000-1.030) Urine Protein (Negative) Urine Glucose (UA) (Negative) Urine Ketones (Negative) Urine Blood (Negative) Urine Nitrite (Negative) Urine Bilirubin (Negative) Urine Urobilinogen (Negative) Ur Leukocyte Esterase (Negative) Urine RBC (0-4) /hpf Urine WBC (0-5) /hpf Ur Epithelial Cells (0-5) /lpf Amorphous Sediment (None Prsent) Urine Bacteria (Negative) COVID-19 [facility] A Molecular Assay (Negative) Influ B Molecular Assay (Negative) SARS-CoV-2, RNA, NAAT POSITIVE A* (NEGATIVE) 05/09/20 05/09/20 05/09/20 Range/Units 16:48 16:49 16:56 WBC (4.8-10.8) K/uL RBC (4.7-6.1) M/uL Hgb (14.0-18.0) g/dL Hct (42-52) % MCV (80-100) fL MCH (25-34) pg MCHC (32-36) g/dL RDW Std Deviation (36.4-46.3) fL RDW Coeff of Lucina (11.5-14.5) % Plt Count (130-400) K/uL MPV (7.4-10.4) fL Immature Gran % (Auto) % Neut % (Auto) % Lymph % (Auto) % [place] % (Auto) % Eos % (Auto) % Baso % (Auto) % Neut # (Auto) (1.4-6.5) K/uL Lymph # (Auto) (1.2-3.4) K/uL [place] # (Auto) (0.11-0.59) K/uL Eos # (Auto) (0-0.5) K/uL Baso # (Auto) (0-0.2) K/uL Immature Gran # (Auto) (0.00-0.02) K/uL PT (9.0-12.0) Seconds INR (0.9-1.1) APTT (21.0-31.0) Seconds PTT Ratio D-Dimer (0-500) ug/L FEU ABG pH (7.35-7.45) ABG pCO2 (35-46) mmHg ABG pO2 (80-95) mmHg ABG HCO3 (19-24) mmol/L ABG O2 Saturation (90-95) % ABG Base Excess (-9-1.8) mEq/L Joseph Test (Pos) Barometric Pressure mm/Hg Oxygen Given Sodium (136-145) mmol/L Potassium (3.5-5.1) mmol/L Chloride (98-107) mmol/L Carbon Dioxide (21-32) mmol/L Anion Gap (3-11) BUN (7-18) mg/dl Creatinine (0.6-1.4) mg/dl Est Cr Clr Drug Dosing Est GFR ( Amer) Est GFR (Non-Af Amer) BUN/Creatinine Ratio (10-20) Glucose (70-99) mg/dl POC Glucose 271 H (70-99) mg/dl Lactate 2.6 H* (0.4-2.0) mmol/L Calcium (8.5-10.1) mg/dl Magnesium (1.8-2.4) mg/dl Total Bilirubin (0.2-1) mg/dl AST (15-37) U/L ALT (12-78) U/L Alkaline Phosphatase (45-117) U/L Troponin I (0-0.045) ng/ml NT-Pro-B Natriuret Pep (0-1800) pg/ml Total Protein (6.4-8.2) gm/dl Albumin (3.4-5.0) gm/dl Globulin (2.5-4.0) gm/dl Albumin/Globulin Ratio (0.9-2) Beta-Hydroxybutyric Acd (0.2-2.81) mg/dl Procalcitonin (0-0.5) ng/ml Urine Color Yellow Urine Appearance Clear (Clear) Urine pH 5.5 (4.5-7.5) Ur Specific [place] >= 1.030 (1.000-1.030) Urine Protein 1+ H (Negative) Urine Glucose (UA) 3+ H (Negative) Urine Ketones Negative (Negative) Urine Blood 1+ H (Negative) Urine Nitrite Negative (Negative) Urine Bilirubin Negative (Negative) Urine Urobilinogen Negative (Negative) Ur Leukocyte Esterase Negative (Negative) Urine RBC 0-4 (0-4) /hpf Urine WBC 0-5 (0-5) /hpf Ur Epithelial Cells 5-10 H (0-5) /lpf Amorphous Sediment Present A (None Prsent) Urine Bacteria Negative (Negative) COVID-19 Eval Order Influ A Molecular Assay (Negative) Influ B Molecular Assay (Negative) SARS-CoV-2, RNA, NAAT (NEGATIVE) Administered Medications Remdesivir 200 mg/ Sodium (Chloride) 250 mls @ 125 mls/hr IV ONE ONE; Protocol Stop: 05/09/20 18:14 Last Admin: 05/09/20 16:56 Dose: 125 mls/hr Documented by: [id number] Doxycycline Hyclate 100 mg/ (Dextrose) 110 mls @ 50 mls/hr IV ONE ONE Stop: 05/09/20 18:26 Last Admin: 05/09/20 16:54 Dose: 50 mls/hr Documented by: [id number] Discontinued Medications Albuterol (Albuterol Hfa 8 Gm Inhaler) 3 puffs INH NOW ONE Stop: 05/09/20 14:12 Last Admin: 05/09/20 14:56 Dose: 3 puffs Documented by: [id number] Dexamethasone (Dexamethasone Sod Inj 10 Mg/Ml Vial) 6 mg IV NOW ONE Stop: 05/09/20 14:12 Last Admin: 05/09/20 14:57 Dose: 6 mg Documented by: [id number] Furosemide (Furosemide 40 Mg/4 Ml Vial) 40 mg IV NOW STA Stop: 05/09/20 15:44 Last Admin: 05/09/20 16:58 Dose: 40 mg Documented by: [id number] Cefepime HCl (Maxipime) 2,000 mg in 20 mls @ 5 mls/min IV NOW STA; Protocol Stop: 05/09/20 14:14 Last Admin: 05/09/20 14:57 Dose: 5 mls/min Documented by: [id number] Insulin Human Regular (Novolin-R Insulin Per Unit Charge) 10 units IV NOW STA Stop: 05/09/20 15:51 Last Admin: 05/09/20 17:13 Dose: Not Given Documented by: [id number] Insulin Human Regular (Novolin-R Insulin Per Unit Charge) 6 units IV NOW STA Stop: 05/09/20 16:53 Last Admin: 05/09/20 17:14 Dose: 6 units Documented by: [id number] Cosigned by: [id number] Nitroglycerin (Nitroglycerin 2% Ointment 30gm Tube) 1 inch EXT NOW STA Stop: 05/09/20 15:44 Last Admin: 05/09/20 16:53 Dose: 1 inch Documented by: [id number] Imaging Data Radiologist's Impression: XR chest 1V portable CLINICAL HISTORY: SEPSIS COMPARISON STUDY: Chest radiograph September 13, 2019. FINDINGS: Lung volumes are at the lower limits of normal. This is unchanged. No pneumothorax or pleural effusion is noted. There is extensive bilateral airspace opacity which has developed since prior exam. Cardiomegaly is noted. IMPRESSION: Interval development of extensive bilateral airspace opacities consistent with an infectious process. Radiographic follow-up is recommended. Discharge Plan Visit Data Chief Complaint: Shortness of Breath/Dyspnea Stated Complaint: SOB LOW 02 STATS ED Provider: Freddie Smith Discharge Problem: Hypoxia, CHF (congestive heart failure), Pneumonia, Elevated troponin, Acute hyperglycemia, COVID-19 Patient Disposition: Admitted As Inpatient Condition: Serious Forms Stand Alone Forms: My [facility] Prescriptions Prescriptions: No Action levothyroxine [Synthroid] 112 mcg Tablet 112 mcg PO DAILY Qty: 0 RF: 0 isosorbide mononitrate 60 mg Tablet Extended Release 24 Hr 30 mg PO DAILY Qty: 0 RF: 0 Caltrate + D3 Plus Minerals 300 mg-800 unit -25 mg-0.5 mg Tablet 1 tab PO DAILY Qty: 0 RF: 0 furosemide [Lasix] 40 mg tablet 40 mg PO DAILY Qty: 0 RF: 0 metformin [Glucophage] 500 mg tablet 500 mg PO BID Qty: 0 RF: 0 potassium chloride 10 mEq tablet extended release 10 meq PO BID Qty: 0 RF: 0 ketoconazole 2 % cream 1 applic topical BID Qty: 60 RF: 0 fluocinonide 0.05 % ointment 1 applic topical BID Qty: 30 RF: 0 lisinopril 5 mg Tablet 2.5 mg PO DAILY RF: 0 simvastatin 40 mg Tablet 40 mg PO HS RF: 0 pregabalin [Lyrica] 75 mg capsule 75 mg PO BID RF: 0 amlodipine 10 mg tablet 10 mg PO DAILY RF: 0 zolpidem 5 mg tablet 5 mg PO HS PRN (Reason: Insomnia) RF: 0 metoprolol tartrate 25 mg tablet 25 mg PO BID RF: 0 ferrous gluconate 324 mg (38 mg iron) tablet 324 mg PO TID RF: 0 nitroglycerin 0.4 mg tablet, sublingual 0.4 mg sublingual .PRN/UD RF: 0 Referrals Referrals: Morteza Crespo MD [Primary Care Provider] - Discharge Problem: CHF (congestive heart failure) Qualifiers: Heart failure type: unspecified Heart failure chronicity: acute on chronic Qualified Code(s): I50.9 - Heart failure, unspecified Pneumonia Qualifiers: Pneumonia type: due to unspecified organism Laterality: bilateral Lung location: unspecified part of lung Qualified Code(s): J18.9 - Pneumonia, unspecified organism
--- NOTE | 2020-05-09 14:29 | XRay Report ---
XR chest 1V portable CLINICAL HISTORY: SEPSIS COMPARISON STUDY: Chest radiograph September 13, 2019. FINDINGS: Lung volumes are at the lower limits of normal. This is unchanged. No pneumothorax or pleur al effusion is noted. There is extensive bilateral airspace opacity which has developed since prior e xam. Cardiomegaly is noted. IMPRESSION: Interval development of extensive bilateral airspace opacities consistent with an infect ious process. Radiographic follow-up is recommended. ACT 112: Negative or not required by law. Electronically signed by: Jered Aponte M.D. 05/09/2020 2:28 PM
[2020-05-09 15:09] LABS: Basophils # (auto) 0.01 K/uL (0-0.2); Basophils % (auto) 0.1 %; Hematocrit (blood only) 37.6 % (42-52); Hemoglobin 12.2 g/dL (14.0-18.0); Immature Granulocytes # (auto) 0.07 K/uL (0.00-0.02); Immature Granulocytes % (auto) 0.4 %; Lymphocytes # (auto) 0.24 K/uL (1.2-3.4); Lymphocytes % (auto) 1.3 %; Mean Corpuscular Hemoglobin 27.9 pg (25-34); Mean Corpuscular Hgb Conc 32.4 g/dL (32-36); Mean Platelet Volume 12.5 fL (7.4-10.4); Monocytes # (auto) 0.66 K/uL (0.11-0.59); Monocytes % (auto) 3.7 %; Neutrophils # (auto) 16.81 K/uL (1.4-6.5); Neutrophils % (auto) 94.5 %; Platelet Count 169 K/uL (130-400); RDW Coefficient of Variation 13.5 % (11.5-14.5); RDW Standard Deviation 42.6 fL (36.4-46.3); Red Blood Count 4.37 M/uL (4.7-6.1); White Blood Count 17.79 K/uL (4.8-10.8)
[2020-05-09 15:22] LABS: INR 1.1 (0.9-1.1); Partial Thromboplastin Ratio 1.1; Partial Thromboplastin Time 30.6 Seconds (21.0-31.0); Prothrombin Time 11.6 Seconds (9.0-12.0)
[2020-05-09 15:34] LABS: Alanine Aminotransferase 35 U/L (12-78); Albumin Globulin Ratio 0.6 (0.9-2); Albumin Level 2.7 gm/dl (3.4-5.0); Alkaline Phosphatase 49 U/L (45-117); Aspartate Aminotransferase 50 U/L (15-37); BUN Creatinine Ratio 18.6 (10-20); Bilirubin,Total 0.6 mg/dl (0.2-1); Blood Urea Nitrogen 22 mg/dl (7-18); Calcium 8.2 mg/dl (8.5-10.1); Carbon Dioxide 25 mmol/L (21-32); Chloride 101 mmol/L (98-107); Est GFR (African American) 64.6; Est GFR (Non-African American) 55.7; Globulin 4.2 gm/dl (2.5-4.0); Glucose 329 mg/dl (70-99); Magnesium 2.1 mg/dl (1.8-2.4); NT Pro B Type Natriuretic Pept 28560 pg/ml (0-1800); Potassium 3.6 mmol/L (3.5-5.1); Sodium 135 mmol/L (136-145); Total Protein 6.9 gm/dl (6.4-8.2)
[2020-05-09] MEDS ORDERED: NITROGLYCERIN 2% OINTMENT 30GM TUBE EXT STA ×2 (15:43→18:34)
[2020-05-09] MEDS ORDERED: FUROSEMIDE 40 MG/4 ML VIAL IV STA (15:43)
--- NOTE | 2020-05-09 15:45 | Electrocardiogram Report ---
Test Reason : Blood Pressure : / mmHG Vent. Rate : 092 BPM Atrial Rate : 092 BPM P-R Int : 172 ms QRS Dur : 094 ms QT Int : 464 ms P-R-T Axes : 020 -26 029 degrees QTc Int : 573 ms Sinus rhythm with occasional Premature ventricular complexes Voltage criteria for left ventricular hypertrophy Poor R wave progression, consider anterior WI vs. lead placement vs. LVH Nonspecific ST and T wave abnormality Prolonged QT Abnormal ECG When compared with ECG of 13-SEP-2019 09:39, Significant changes have occurred Confirmed by Oc Li ([id number]) on 05/09/2020 3:44:51 PM Referred By: ED Confirmed By:Oc Li
[2020-05-09 15:47] LABS: Beta-Hydroxybutyrate 2.48 mg/dl (0.2-2.81); D Dimer 2150 ug/L FEU (0-500)
[2020-05-09] MEDS ORDERED: NovoLIN-R INSULIN PER UNIT CHARGE IV STA ×2 (15:50→16:52)
[2020-05-09 15:56] LABS: Influenza A virus by PCR Negative (Negative); Influenza B virus by PCR Negative (Negative)
[2020-05-09] MEDS ORDERED: REMDESIVIR 200 MG in SODIUM CHLORIDE 0.9% 210 ML IV ONE (16:15)
[2020-05-09] MEDS ORDERED: DOXYCYCLINE HYCLATE 100 MG in DEXTROSE 5% 100 ML IV ONE (16:15)
--- NOTE | 2020-05-09 16:41 | History & Physical Report ---
Date of Service May 09, 2020 Assessment & Plan (1) Sepsis: Source - COVID-19 pneumonia +/- bacterial PNA +/- UTI (self caths daily) Lactate 5.6 (suspect mostly due to hypoxia), repeat pending. No fluid bolus due to heart failure. Empiric antibiotics with vancomycin, cefepime, doxycycline pending blood and urine cultures (2) COVID-19: Dexamethasone 6 mg IV daily for total 10 days. Start remdesivir IV 5 day course. Convalescent plasma - transfusion discussed with JENNIFER Hinds and consent gained verbally over the phone. Airborne/contact/chemo isolation precautions. (3) Acute respiratory failure with hypoxia: ABG concerning with PaO2 51 on high flow O2 FiO2 100%, however O2 sats have subsequently improved since this was taken (he had one nasal prong outside of his nostril with O2 sats 84% improved to 92%), will trial on CPAP (close IPAP/EPAP BiPAP) as able to help with heart failure and O2 sats. Aim O2 sats > 90% (4) Acute on chronic heart failure with preserved ejection fraction: Lasix 40 mg IV given in ER. Will give additional dose tonight then start 20 mg IV twice daily (double his home dose). Continue nitroglycerin 1 inch patch started in ER - can discontinue in AM in favor of his usual ISMN if BP stable overnight. Strict I&Os Daily weights (5) Type 2 diabetes mellitus: HbA1c 7.7 in July. We will repeat with a.m. labs. Insulin NPH 20 units now for some coverage dexamethasone and current hyperglycemia. Consult pharmacy for glycemic control with insulin. Hold metformin. (6) Hypertension: Hold lisinopril, metoprolol, amlodipine and isosorbide mononitrate pending stability of blood pressure overnight. Lasix as above Continue nitroglycerin 1 inch paste as long as sBP > 100 (7) Aortic stenosis: Severe on echocardiogram in August 2019. [address] Dr. Martin as an outpatient - declined intervention for this. (8) CAD (coronary artery disease): Unclear why he is not on antiplatelet. Prior stent to RCA per outpatient. Will give ASA 324mg PO chew now then 81mg PO daily. Continue simvastatin 40mg PO HS Aim to restart BB but given acute CHF and sepsis will defer metoprolol at the present time. (9) Elevated troponin: Suspect demand ischemia in the setting of sepsis. Will trend troponins to assess for likeliness of ACS. Aspirin as above. (10) Dermatitis: Fluocinonide BID PRN (11) Prostate cancer: On Eligard injections every 6 months. Last taken 2 weeks previously. (12) DVT prophylaxis: Lovenox 40 mg SQ BID (elevated d-dimer in setting of COVID-19) Admission and Anticipated Discharge Date Admission Date: 05/09/2020 History of Present Illness Chief Complaint: Shortness of breath hypoxia, confusion Primary Care Provider: Morteza Crespo MD Jonnathan Aguila is an 89-year-old male who presents to the ER with shortness of breath, hypoxia and confusion. Initially started with symptoms of chills 4 days ago. Additional myalgias, shortness of breath, confusion, poor appetite. No loss of taste or smell, nasal congestion. Slowly progressing shortness of breath and confusion since then although intermittently getting better then worse. No known exposure to COVID-19 however he lives with his son who works for [id number] and has regular visits from his daughter who is a nurse. Discussed care with his daughter and decision maker Danay who is a nurse at [employer]. She is particularly concerned about a UTI as the patient had his 6 monthly Eligard injection 2 weeks ago and usually they test his urine at that time and put him on antibiotics. He self caths daily and has also reportedly been having problems with this lately. She confirms the patient is not for resuscitation and intubation which is consistent with his last hospital stay in August. In the ER he was noted to be hypoxic with O2 sats 60% on room air. He was st arted on vapotherm high flow nasal cannula FiO2 100%, 40L/min with improvement to 84-92% O2 sats. He was diagnosed with sepsis due to an elevated WBC treated with cefepime 2 g IV. Regarding his Covid 19 diagnosis he was given dexamethasone 6 mg IV. Also suspected to be in heart failure and given Lasix 40 mg IV. Due to hyperglycemia he was given insulin 10 units IV then an additional 6 units IV. He was referred to medicine for admission and ongoing management of hypoxia, Covid, elevated troponin. Allergies Allergy/AdvReac Type Severity Reaction Status Date / Time Sulfa (Sulfonamide Allergy Unknown RASH Verified 05/09/20 17:39 Antibiotics) Home Medications Medication Instructions Recorded Confirmed Type levothyroxine [Synthroid] 112 mcg PO DAILY #0 02/28/13 05/09/20 History Caltrate + D3 Plus Minerals 1 tab PO DAILY #0 07/11/17 05/09/20 History isosorbide mononitrate 30 mg PO DAILY #0 tab 07/11/17 05/09/20 History lisinopril 2.5 mg PO DAILY 05/13/19 05/09/20 History simvastatin 40 mg PO HS 09/13/19 05/09/20 History fluocinonide 0.05 % topical 1 applic TOPICAL BID #30 g 02/03/20 05/09/20 Rx ointment ketoconazole 2 % topical cream 1 applic TOPICAL BID #60 g 02/03/20 05/09/20 Rx furosemide 40 mg tablet 40 mg PO DAILY #0 tab 03/15/20 05/09/20 History metformin 500 mg tablet 500 mg PO BID #0 tab 03/15/20 05/09/20 History potassium chloride 10 mEq 10 meq PO BID #0 cap 03/15/20 05/09/20 History tablet,extended release pregabalin 75 mg capsule 75 mg PO BID cap 03/15/20 05/09/20 History amlodipine 10 mg PO DAILY 05/09/20 05/09/20 History ferrous gluconate 324 mg PO TID 05/09/20 05/09/20 History metoprolol tartrate 25 mg PO BID 05/09/20 05/09/20 History nitroglycerin 0.4 mg SUBLINGUAL .PRN/UD 05/09/20 05/09/20 History zolpidem 5 mg PO HS PRN 05/09/20 05/09/20 History Past Med/Surg History Medical History Acute dyspnea Acute UTI Anemia Aortic stenosis Bilateral edema of lower extremity CAD (coronary artery disease) Cervical spine disease CHF (congestive heart failure) Contusion of rib on right side Dyslipidemia Elevated brain natriuretic peptide (BNP) level Fall Hypertension Osteoarthritis Pancreatic cyst MRI abd 06/26/18. Multiple cysts. [place] not to be malignancy. Prostate cancer Small bowel obstruction Type 2 diabetes mellitus Surgical History History of lumbar surgery Hx of cholecystectomy Family History Father Cancer Mother Cancer Brother Coronary heart disease Other Family history non-contributory Social History Smoking Status: Former smoker Second Hand Exposure: No; Do You Dip or Chew Tobacco: No; Tobacco Cessation Education Requested by Patient: No Hx Alcohol Use: No Hx Substance Use: No Preferred Language: German Communication Ability: Effective Data Migration Consultant Required: No Beliefs That Will Affect Care: None marital status: / Current Living Situation: Family Current Living Situation Comment: PT LIVES WITH SON current occupational status: retired Other Information That Helps Us Care for You: No Feels Safe at Home: Yes Safety Concerns: Feels Safe At This Time Assistive Devices: Cane, Hearing Aid - Bilateral and Walker Review of Systems Review of Systems: All systems reviewed & are unremarkable except as noted in HPI & below Physical Exam Constitutional: + acute distress (Respiratory), + ill appearing and + frail appearing Eyes: PERRL, conjunctivae normal, anicteric sclerae ENMT: Ears: + hearing impairment (Very hard of hearing with vapotherm and hearing aid battery needs charged) Neck: trachea midline Respiratory: + respiratory distress, + labored breathing, + retractions, + uses accessory muscles and + cough (Occasional dry); + not able to speak in complete sentence and no stridor Auscultation: + rhonchi (Bilateral throughout); no diminished lung sounds (Bibasal, good air entry anteriorly) and no wheezes Cardiovascular: Rate/Rhythm: regular rhythm (Frequent missed beats) and + tachycardic Heart Sounds: no murmur Vessels: + JVD and radial pulses present Extremities: + pedal edema (2+ to knees equal bilaterally); + abnormal capillary refill (Prolonged 6 to 7 seconds in toes) Gastrointestinal (Abdomen): Inspection/Auscultation: normal bowel sounds; abdomen not distended Percussion/Palpation: abdomen soft; abdomen nontender, no guarding and abdomen not rigid Skin: no rashes, warm and dry Neurologic: moves all extremities, awake and + confused; no focal motor deficits (No lateralizing deficit) Speech / Cognition: normal speech Psychiatric: Orientation: alert, oriented to person, oriented to place and oriented to time Genitourinary: no CVA tenderness Results & Data Results & Data ([facility]) Vital Signs (Past 12 Hours) Vital Signs Temp Pulse Pulse Resp BP Pulse Ox 05/09/20 16:37 26 H 92 05/09/20 16:31 90 26 H 92 05/09/20 16:30 89 46 H 137/72 93 05/09/20 16:16 90 40 H 84 L 05/09/20 16:15 88 46 H 139/63 84 L 05/09/20 16:01 87 38 H 85 L 05/09/20 16:00 89 40 H 129/67 86 L 05/09/20 15:46 91 H 45 H 86 L 05/09/20 15:45 91 H 38 H 129/65 88 L 05/09/20 15:31 89 35 H 87 L 05/09/20 15:30 89 36 H 132/66 88 L 05/09/20 15:16 96 H 28 H 90 05/09/20 15:15 94 H 26 H 130/61 89 L 05/09/20 15:13 94 H 35 H 120/70 89 L 05/09/20 15:00 92 H 44 H 91 05/09/20 14:45 100 H 32 H 84 L 05/09/20 14:42 97 H 32 H 86 L 05/09/20 14:30 103 H 51 H 87 L 05/09/20 14:24 104 H 52 H 125/73 85 L 05/09/20 14:15 108 H 42 H 81 L 05/09/20 14:12 108 H 54 H 81 L 05/09/20 13:54 36.0 C L 96 H 27 H 136/78 63 L Diagnostic Findings XR chest 1V portable IMPRESSION: Interval development of extensive bilateral airspace opacities consistent with an infectious process. Radiographic follow-up is recommended. Medications Administered ER Medications Given: Cefepime 2g IV Albuterol 3 puff INH Dexamethasone 6mg IV Nitroglycerin 2% 1 inch Lasix 40mg IV Insulin 10 units IV Insulin 6 units IV ECG Rate (beats per minute): 92 Rhythm: normal sinus Findings: + other (poor R wave progression), + nonspecific-ST abn, + PVC and + prolonged QT (573 ms) Comparison ECG Date: from (September 13, 2019) Change: the following changes noted (QT prolongation, poor R wave progression, ST changes, rate increased) Code Status & VTE Plan Code Status DNR/DNI - discussed with his daughter Danay VTE Prophylaxis Plan VTE Prophylaxis will be ordered: Yes PG Care Time/CCT Total # of Minutes Spent Total Time Spent with Patient: Total time spent is greater than 50% in coordination of care (as documented) at patient's floor/unit and/or counseling patient: Coding Level of Care Code 03068 Initial Inpt Care Lvl 3 Diagnoses Sepsis A41.9 COVID-19 U07.1 Acute respiratory failure with hypoxia J96.01 Acute on chronic heart failure with preserved ejection fraction I50.33 Type 2 diabetes mellitus E11.9 Hypertension I10 Aortic stenosis I35.0 Cardiac valve disease etiology: etiology unspecified CAD (coronary artery disease) I25.10 Elevated troponin R77.8 Dermatitis L30.9 Prostate cancer C61 DVT prophylaxis Z29.9 (1) Aortic stenosis Cardiac valve disease etiology: etiology unspecified Qualified Code(s): I35.0 - Nonrheumatic aortic (valve) stenosis
[2020-05-09 16:43] LABS: Allen Test Pos (Pos); Base Excess ABG 0.7 mEq/L (-9-1.8); HCO3 ABG 24 mmol/L (19-24); Oxygen Saturation ABG 85.7 % (90-95); PCO2 ABG 34 mmHg (35-46); PO2 ABG 51 mmHg (80-95); pH ABG 7.47 (7.35-7.45)
[2020-05-09 17:08] LABS: Appearance Urine Clear (Clear); Bilirubin Urine Negative (Negative); Blood Urine 1+ (Negative); Color Urine Yellow; Glucose Urine UA 3+ (Negative); Ketones Urine Negative (Negative); Leukocyte Esterase Urine Negative (Negative); Nitrite Urine Negative (Negative); Protein Urine 1+ (Negative); Specific Gravity Urine >= 1.030 (1.000-1.030); Urobilinogen Urine Negative (Negative); pH Urine 5.5 (4.5-7.5)
[2020-05-09 17:27] LABS: Amorphous Sediment Urine Present (None Prsent); Bacteria Urine Negative (Negative); RBC Urine 0-4 /hpf (0-4); WBC Urine 0-5 /hpf (0-5)
[2020-05-09] MEDS ORDERED: VANCOMYCIN CONSULT ACTIVE PRN (17:27)
[2020-05-09] MEDS ORDERED: VANCOMYCIN HCL 2,000 MG in SODIUM CHLORIDE 0.9% 500 ML IV STA (17:30)
[2020-05-09] MEDS ORDERED: NovoLIN-N (NPH) PER UNIT CHARGE SQ STA (17:31)
[2020-05-09] MEDS ORDERED: SODIUM CHLORIDE 0.9% 10ML FLUSH IV SCH (18:15)
[2020-05-09] MEDS ORDERED: ASPIRIN CHEW 324 MG PO STA (18:22)
[2020-05-09] MEDS ORDERED: ZOLPIDEM TARTRATE 5 MG TAB PO SCH (21:17)
[2020-05-09] MEDS ORDERED: FUROSEMIDE 40 MG/4 ML VIAL IV ONE (21:17)
[2020-05-09] MEDS ORDERED: PHARMACY GLYCEMIC MGMT CONSULT PRN (21:42)
[2020-05-09] MEDS ORDERED: INSULIN GLARGINE SOLOSTAR 100 UNITS/ML 3 ML PEN SC ONE (21:45)
[2020-05-09] MEDS ORDERED: GLUCOSE 10 TABS/TUBE PO PRN (22:00)
[2020-05-09] MEDS ORDERED: GLUCAGON FOR INJ 1 MG VIAL IM PRN (22:00)
[2020-05-09] MEDS ORDERED: CARBOHYDRATES FOR HYPOGLYCEMIA PO PRN (22:00)
[2020-05-09] MEDS ORDERED: DEXTROSE 50% 50 ML SYRINGE IV PRN (22:00)
[2020-05-09] MEDS ORDERED: GLUCOSE 40% GEL 15 GM TUBE PO PRN (22:00)
[2020-05-09] MEDS: ENOXAPARIN INJ 40 MG/0.4 ML SYR SQ SCH (22:38)
[2020-05-09] MEDS: SIMVASTATIN 40 MG TAB PO SCH (22:38)
[2020-05-09] MEDS: POTASSIUM CHLORIDE CRTAB 20 MEQ TABCR PO SCH (22:38)
[2020-05-09] MEDS: PREGABALIN 75 MG CAP PO SCH (22:38)
[2020-05-10] MEDS: NITROGLYCERIN 2% OINTMENT 30GM TUBE EXT SCH ×2 (00:01→06:20)
[2020-05-10] MEDS: CEFEPIME 2,000 MG in SYRINGE 0 ML IV SCH ×2 (00:01→12:47)
[2020-05-10] MEDS ORDERED: INSULIN ASPART 100 UNITS/ML 3 ML PEN SC ONE ×2 (00:15→02:00)
[2020-05-10] MEDS ORDERED: LEVOTHYROXINE SODIUM 112 MCG TABLET PO SCH (04:00)
[2020-05-10 06:17] LABS: Basophils # (auto) 0.02 K/uL (0-0.2); Basophils % (auto) 0.1 %; Hematocrit (blood only) 39.2 % (42-52); Hemoglobin 12.7 g/dL (14.0-18.0); Immature Granulocytes # (auto) 0.11 K/uL (0.00-0.02); Immature Granulocytes % (auto) 0.6 %; Lymphocytes # (auto) 0.68 K/uL (1.2-3.4); Lymphocytes % (auto) 3.6 %; Mean Corpuscular Hemoglobin 27.6 pg (25-34); Mean Corpuscular Hgb Conc 32.4 g/dL (32-36); Mean Corpuscular Volume 85.2 fL (80-100); Mean Platelet Volume 12.6 fL (7.4-10.4); Monocytes # (auto) 0.73 K/uL (0.11-0.59); Monocytes % (auto) 3.8 %; Neutrophils # (auto) 17.52 K/uL (1.4-6.5); Neutrophils % (auto) 91.9 %; Platelet Count 162 K/uL (130-400); RDW Coefficient of Variation 13.4 % (11.5-14.5); RDW Standard Deviation 41.6 fL (36.4-46.3); White Blood Count 19.06 K/uL (4.8-10.8)
[2020-05-10] MEDS: LEVOTHYROXINE SODIUM 112 MCG TABLET PO SCH (06:18)
[2020-05-10 06:51] LABS: Albumin Level 2.4 gm/dl (3.4-5.0); BUN Creatinine Ratio 20.7 (10-20); Calcium 7.7 mg/dl (8.5-10.1); Creatinine Clr Calc Pharmacy 44.5 ml/min; Est GFR (African American) 68.1; Est GFR (Non-African American) 58.7; Potassium 3.1 mmol/L (3.5-5.1)
[2020-05-10 07:04] LABS: Albumin Globulin Ratio 0.6 (0.9-2); Bilirubin,Total 0.5 mg/dl (0.2-1); Globulin 4.2 gm/dl (2.5-4.0); Total Protein 6.6 gm/dl (6.4-8.2); Troponin I 3.9 ng/ml (0-0.045)
[2020-05-10] MEDS ORDERED: FLUOCINONIDE 0.05% OINT 15 GM TUBE EXT PRN (07:29)
[2020-05-10] MEDS ORDERED: ISOSORBIDE MONO EXTENDED REL 30 MG TABCR PO SCH (09:00)
[2020-05-10] MEDS ORDERED: FUROSEMIDE 20 MG in SYRINGE 0 ML IV SCH (09:00)
[2020-05-10] MEDS ORDERED: FUROSEMIDE 40 MG in SYRINGE 0 ML IV SCH (09:00)
[2020-05-10] MEDS ORDERED: FUROSEMIDE 40 MG/4 ML VIAL IV SCH (09:00)
[2020-05-10] MEDS ORDERED: DEXAMETHASONE SOD INJ 4 MG/ML VIAL IV SCH (09:00)
[2020-05-10] MEDS: INSULIN GLARGINE SOLOSTAR 100 UNITS/ML 3 ML PEN SC SCH ×2 (09:06→21:42)
[2020-05-10] MEDS: POTASSIUM CHLORIDE CRTAB 20 MEQ TABCR PO SCH ×4 (09:06→22:27)
[2020-05-10] MEDS: CALCIUM 600MG + VIT D 400 IU TAB PO SCH (09:06)
[2020-05-10] MEDS: CHOLECALCIFEROL 1,000 UNITS 25 MCG TAB PO SCH (09:06)
[2020-05-10] MEDS: FLUTICASONE/VILANTEROL 100/25MCG 14 PUFFS/INHALER INH SCH (09:07)
[2020-05-10] MEDS: DEXAMETHASONE SOD PHOSPHATE 6 MG in SYRINGE 0 ML IV SCH (09:07)
[2020-05-10] MEDS: INSULIN HUMAN NPH SC SCH (09:08)
[2020-05-10] MEDS: ASPIRIN 81 MG ECTAB PO SCH (09:08)
[2020-05-10] MEDS: PREGABALIN 75 MG CAP PO SCH ×2 (09:11→22:28)
[2020-05-10] MEDS: INSULIN ASPART 100 UNITS/ML 3 ML PEN SC SCH ×4 (09:12→21:45)
[2020-05-10] MEDS: ENOXAPARIN INJ 40 MG/0.4 ML SYR SQ SCH ×2 (09:13→22:29)
--- NOTE | 2020-05-10 09:25 | Hospitalist Progress Note ---
Date of Service May 10, 2020 Assessment & Plan (1) Sepsis: Source - COVID-19 pneumonia, will cover empirically for bacterial infection, no evidence of UTI Lactate 5.6 (suspect mostly due to hypoxia), going down No fluid bolus due to heart failure. Empiric antibiotics with cefepime, doxycycline, stop Vanco follow up blood and urine cultures (2) COVID-19: Dexamethasone 6 mg IV daily for total 10 days. Start remdesivir IV 5 day course. Convalescent plasma - transfusion discussed with JENNIFER Hinds and consent gained verbally over the phone. continues to require high levels of oxygen, 40L and 100% FiO2 labored breathing at baseline guarded prognosis given his co-morbidities (3) NSTEMI (non-ST elevated myocardial infarction): troponin rising to 3 and then to 4 today no chest pain or pressure could be type II TX with demand ischemic due to hypoxia and work of breathing will continue on aspirin, metoprolol need to get echo to assess for wall motion abnormalities repeat troponin in the AM consult cardiology (4) Acute respiratory failure with hypoxia: ABG concerning with PaO2 51 on high flow O2 FiO2 100% Aim O2 sats > 90% on 40L and 100% FiO2, next step would be BIPAP he is DNR/DNI prognosis guarded, re-assess in the morning and will have discussion with family and patient (5) Acute on chronic heart failure with preserved ejection fraction: Lasix 40 mg IV given in ER. Lasix 20mg IV this morning does not appear to be volume overloaded on exam and CXR with no clear signs of pulmonary edema will hold on further Lasix (6) Type 2 diabetes mellitus: HbA1c 7.7 in July. Insulin NPH 28 units in AM [facility] dexamethasone Consult pharmacy for glycemic control with insulin. Hold metformin. monitor for hypo and hyperglycemia (7) Hypertension: Hold lisinopril, and norvasc and imdur resume metopolol at 12.5mg BID BP is low normal (8) Aortic stenosis: Severe on echocardiogram in August 2019. Under Dr. Martin as an outpatient - declined intervention for this. (9) CAD (coronary artery disease): Unclear why he is not on antiplatelet. Prior stent to RCA per outpatient. Will give ASA 324mg PO chew now then 81mg PO daily. Continue simvastatin 40mg PO HS metoprolol 12.5mg BID now with troponin of 4, could be demand ischemia vs NSTEMI check echo, consult cardiology (10) Dermatitis: Fluocinonide BID PRN (11) Prostate cancer: On Eligard injections every 6 months. Last taken 2 weeks previously. (12) DVT prophylaxis: Lovenox 40 mg SQ BID (elevated d-dimer in setting of COVID-19) Admission and Anticipated Discharge Date Admission Date: May 09, 2020 Subjective patient says he feels better since he was admitted he laughs and says, "I could feel better but I also could feel worse right now" he says he has felt bad for weeks reports a fever, chills, cough he has not noticed any swelling in legs, he admits he does not weight himself regularly so not sure if weight is up reviewed chart reviewed labs this morning, WBC 19k, Hb 12, K 3.1, Cr 1.12 troponin up to 3.9 this morning, he denies any chest pain or pressure today or yesterday will need to repeat this afternoon Review of Systems Review of Systems: All systems reviewed & are unremarkable except as noted in Subjective Respiratory: + cough, + dyspnea and + dyspnea on exertion Cardiovascular: no chest pain and no edema Physical Exam Constitutional: well developed, + ill appearing and + frail appearing; no acute distress Neck: trachea midline, no thyromegaly Respiratory: + labored breathing, able to speak in complete sentences and + tachypneic; no respiratory distress Auscultation: no crackles, no rales, no rhonchi and no wheezes Cardiovascular: RRR, no murmur, no edema Gastrointestinal (Abdomen): normal bowel sounds, soft, nontender, no hepatosplenomegaly Musculoskeletal: no cyanosis or clubbing, extremities motor strength 5/5 Skin: no rashes, warm and dry Neurologic: patellar DTR's 2+ bilat, sensation intact and PERRL, EOMI, accommodation nl, no face palsy, no dysarthria Psychiatric: A+Ox3, euthymic affect Lymphatic: no cervical or axillary lymphadenopathy Results & Data Results & Data ([facility]) Vital Signs (Past 12 Hours) Vital Signs Temp Pulse Pulse Resp BP Pulse Ox 05/10/20 07:07 36.5 C 92 H 20 108/64 91 05/10/20 03:38 36.5 C 78 35 H 128/69 96 05/10/20 02:18 78 22 90 05/10/20 00:14 36.4 C L 73 34 H 102/53 L 92 05/09/20 23:59 88 05/09/20 23:42 84 24 91 05/09/20 21:25 102 H 28 H 91 05/09/20 21:23 36.6 C 88 27 H 131/64 90 Laboratory Results Laboratory Results - last 24 hr 05/09/20 05/09/20 05/09/20 14:53 14:53 14:53 WBC RBC Hgb Hct MCV MCH MCHC RDW Std Deviation RDW Coeff of Lucina Plt Count MPV Immature Gran % (Auto) Neut % (Auto) Lymph % (Auto) [place] % (Auto) Eos % (Auto) Baso % (Auto) Neut # (Auto) Lymph # (Auto) [place] # (Auto) Eos # (Auto) Baso # (Auto) Immature Gran # (Auto) PT 11.6 INR 1.1 APTT 30.6 PTT Ratio 1.1 D-Dimer 2150 H* ABG pH ABG pCO2 ABG pO2 ABG HCO3 ABG O2 Saturation ABG Base Excess Joseph Test Barometric Pressure Oxygen Given Sodium 135 L Potassium 3.6 Chloride 101 Carbon Dioxide 25 Anion Gap 9.0 BUN 22 H Creatinine 1.17 Est Cr Clr Drug Dosing Not Reportable Est GFR ( Amer) 64.6 Est GFR (Non-Af Amer) 55.7 BUN/Creatinine Ratio 18.6 Glucose 329 H* POC Glucose Estimat Average Glucose Hemoglobin A1c Lactate Calcium 8.2 L Magnesium 2.1 Total Bilirubin 0.6 AST 50 H ALT 35 Alkaline Phosphatase 49 Troponin I 1.120 H* NT-Pro-B Natriuret Pep 59746 H Total Protein 6.9 Albumin 2.7 L Globulin 4.2 H Albumin/Globulin Ratio 0.6 L Beta-Hydroxybutyric Acd 2.48 Procalcitonin 0.14 Urine Color Urine Appearance Urine pH Ur Specific [place] Urine Protein Urine Glucose (UA) Urine Ketones Urine Blood Urine Nitrite Urine Bilirubin Urine Urobilinogen Ur Leukocyte Esterase Urine RBC Urine WBC Ur Epithelial Cells Amorphous Sediment Urine Bacteria COVID-19 Eval Order Influ A Molecular Assay Influ B Molecular Assay SARS-CoV-2, RNA, NAAT Blood Type Antibody Screen 05/09/20 05/09/20 05/09/20 14:53 14:53 15:00 WBC 17.79 H RBC 4.37 L Hgb 12.2 L Hct 37.6 L MCV 86.0 MCH 27.9 MCHC 32.4 RDW Std Deviation 42.6 RDW Coeff of Lucina 13.5 Plt Count 169 MPV 12.5 H Immature Gran % (Auto) 0.4 Neut % (Auto) 94.5 Lymph % (Auto) 1.3 [place] % (Auto) 3.7 Eos % (Auto) 0.0 Baso % (Auto) 0.1 Neut # (Auto) 16.81 H Lymph # (Auto) 0.24 L [place] # (Auto) 0.66 H Eos # (Auto) 0.00 Baso # (Auto) 0.01 Immature Gran # (Auto) 0.07 H PT INR APTT PTT Ratio D-Dimer ABG pH ABG pCO2 ABG pO2 ABG HCO3 ABG O2 Saturation ABG Base Excess Joseph Test Barometric Pressure Oxygen Given Sodium Potassium Chloride Carbon Dioxide Anion Gap BUN Creatinine Est Cr Clr Drug Dosing Est GFR ( Amer) Est GFR (Non-Af Amer) BUN/Creatinine Ratio Glucose POC Glucose Estimat Average Glucose Hemoglobin A1c Lactate 5.6 H* Calcium Magnesium Total Bilirubin AST ALT Alkaline Phosphatase Troponin I NT-Pro-B Natriuret Pep Total Protein Albumin Globulin Albumin/Globulin Ratio Beta-Hydroxybutyric Acd Procalcitonin Urine Color Urine Appearance Urine pH Ur Specific [place] Urine Protein Urine Glucose (UA) Urine Ketones Urine Blood Urine Nitrite Urine Bilirubin Urine Urobilinogen Ur Leukocyte Esterase Urine RBC Urine WBC Ur Epithelial Cells Amorphous Sediment Urine Bacteria COVID-19 Eval Order Influ A Molecular Assay Negative Influ B Molecular Assay Negative SARS-CoV-2, RNA, NAAT Blood Type Antibody Screen 05/09/20 05/09/20 05/09/20 15:00 15:00 16:25 WBC RBC Hgb Hct MCV MCH MCHC RDW Std Deviation RDW Coeff of Lucina Plt Count MPV Immature Gran % (Auto) Neut % (Auto) Lymph % (Auto) [place] % (Auto) Eos % (Auto) Baso % (Auto) Neut # (Auto) Lymph # (Auto) [place] # (Auto) Eos # (Auto) Baso # (Auto) Immature Gran # (Auto) PT INR APTT PTT Ratio D-Dimer ABG pH 7.47 H ABG pCO2 34 L ABG pO2 51 L ABG HCO3 24 ABG O2 Saturation 85.7 L ABG Base Excess 0.7 Joseph Test Pos Barometric Pressure 731.8 Oxygen Given 40% Sodium Potassium Chloride Carbon Dioxide Anion Gap BUN Creatinine Est Cr Clr Drug Dosing Est GFR ( Amer) Est GFR (Non-Af Amer) BUN/Creatinine Ratio Glucose POC Glucose Estimat Average Glucose Hemoglobin A1c Lactate Calcium Magnesium Total Bilirubin AST ALT Alkaline Phosphatase Troponin I NT-Pro-B Natriuret Pep Total Protein Albumin Globulin Albumin/Globulin Ratio Beta-Hydroxybutyric Acd Procalcitonin Urine Color Urine Appearance Urine pH Ur Specific [place] Urine Protein Urine Glucose (UA) Urine Ketones Urine Blood Urine Nitrite Urine Bilirubin Urine Urobilinogen Ur Leukocyte Esterase Urine RBC Urine WBC Ur Epithelial Cells Amorphous Sediment Urine Bacteria COVID-19 Eval Order [facility] Influ A Molecular Assay Influ B Molecular Assay SARS-CoV-2, RNA, NAAT POSITIVE A* Blood Type Antibody Screen 05/09/20 05/09/20 05/09/20 16:25 16:48 16:49 WBC RBC Hgb Hct MCV MCH MCHC RDW Std Deviation RDW Coeff of Lucina Plt Count MPV Immature Gran % (Auto) Neut % (Auto) Lymph % (Auto) [place] % (Auto) Eos % (Auto) Baso % (Auto) Neut # (Auto) Lymph # (Auto) [place] # (Auto) Eos # (Auto) Baso # (Auto) Immature Gran # (Auto) PT INR APTT PTT Ratio D-Dimer ABG pH ABG pCO2 ABG pO2 ABG HCO3 ABG O2 Saturation ABG Base Excess Joseph Test Barometric Pressure Oxygen Given Sodium Potassium Chloride Carbon Dioxide Anion Gap BUN Creatinine Est Cr Clr Drug Dosing Est GFR ( Amer) Est GFR (Non-Af Amer) BUN/Creatinine Ratio Glucose POC Glucose 271 H Estimat Average Glucose Hemoglobin A1c Lactate 2.6 H* Calcium Magnesium Total Bilirubin AST ALT Alkaline Phosphatase Troponin I NT-Pro-B Natriuret Pep Total Protein Albumin Globulin Albumin/Globulin Ratio Beta-Hydroxybutyric Acd Procalcitonin Urine Color Urine Appearance Urine pH Ur Specific [place] Urine Protein Urine Glucose (UA) Urine Ketones Urine Blood Urine Nitrite Urine Bilirubin Urine Urobilinogen Ur Leukocyte Esterase Urine RBC Urine WBC Ur Epithelial Cells Amorphous Sediment Urine Bacteria COVID-19 Eval Order Influ A Molecular Assay Influ B Molecular Assay SARS-CoV-2, RNA, NAAT Blood Type A Positive Antibody Screen NEGATIVE 05/09/20 05/09/20 05/09/20 16:56 19:13 20:42 WBC RBC Hgb Hct MCV MCH MCHC RDW Std Deviation RDW Coeff of Lucina Plt Count MPV Immature Gran % (Auto) Neut % (Auto) Lymph % (Auto) [place] % (Auto) Eos % (Auto) Baso % (Auto) Neut # (Auto) Lymph # (Auto) [place] # (Auto) Eos # (Auto) Baso # (Auto) Immature Gran # (Auto) PT INR APTT PTT Ratio D-Dimer ABG pH ABG pCO2 ABG pO2 ABG HCO3 ABG O2 Saturation ABG Base Excess Joseph Test Barometric Pressure Oxygen Given Sodium Potassium Chloride Carbon Dioxide Anion Gap BUN Creatinine Est Cr Clr Drug Dosing Est GFR ( Amer) Est GFR (Non-Af Amer) BUN/Creatinine Ratio Glucose POC Glucose 268 H 274 H Estimat Average Glucose Hemoglobin A1c Lactate Calcium Magnesium Total Bilirubin AST ALT Alkaline Phosphatase Troponin I NT-Pro-B Natriuret Pep Total Protein Albumin Globulin Albumin/Globulin Ratio Beta-Hydroxybutyric Acd Procalcitonin Urine Color Yellow Urine Appearance Clear Urine pH 5.5 Ur Specific [place] >= 1.030 Urine Protein 1+ H Urine Glucose (UA) 3+ H Urine Ketones Negative Urine Blood 1+ H Urine Nitrite Negative Urine Bilirubin Negative Urine Urobilinogen Negative Ur Leukocyte Esterase Negative Urine RBC 0-4 Urine WBC 0-5 Ur Epithelial Cells 5-10 H Amorphous Sediment Present A Urine Bacteria Negative COVID-19 Eval Order Influ A Molecular Assay Influ B Molecular Assay SARS-CoV-2, RNA, NAAT Blood Type Antibody Screen 05/09/20 05/10/20 05/10/20 23:58 05:29 05:29 WBC 19.06 H RBC 4.60 L Hgb 12.7 L Hct 39.2 L MCV 85.2 MCH 27.6 MCHC 32.4 RDW Std Deviation 41.6 RDW Coeff of Lucina 13.4 Plt Count 162 MPV 12.6 H Immature Gran % (Auto) 0.6 Neut % (Auto) 91.9 Lymph % (Auto) 3.6 [place] % (Auto) 3.8 Eos % (Auto) 0.0 Baso % (Auto) 0.1 Neut # (Auto) 17.52 H Lymph # (Auto) 0.68 L [place] # (Auto) 0.73 H Eos # (Auto) 0.00 Baso # (Auto) 0.02 Immature Gran # (Auto) 0.11 H PT INR APTT PTT Ratio D-Dimer ABG pH ABG pCO2 ABG pO2 ABG HCO3 ABG O2 Saturation ABG Base Excess Joseph Test Barometric Pressure Oxygen Given Sodium Potassium Chloride Carbon Dioxide Anion Gap BUN Creatinine Est Cr Clr Drug Dosing Est GFR ( Amer) Est GFR (Non-Af Amer) BUN/Creatinine Ratio Glucose POC Glucose 249 H Estimat Average Glucose Pending Hemoglobin A1c Pending Lactate Calcium Magnesium Total Bilirubin AST ALT Alkaline Phosphatase Troponin I NT-Pro-B Natriuret Pep Total Protein Albumin Globulin Albumin/Globulin Ratio Beta-Hydroxybutyric Acd Procalcitonin Urine Color Urine Appearance Urine pH Ur Specific [place] Urine Protein Urine Glucose (UA) Urine Ketones Urine Blood Urine Nitrite Urine Bilirubin Urine Urobilinogen Ur Leukocyte Esterase Urine RBC Urine WBC Ur Epithelial Cells Amorphous Sediment Urine Bacteria COVID-19 Eval Order Influ A Molecular Assay Influ B Molecular Assay SARS-CoV-2, RNA, NAAT Blood Type Antibody Screen 05/10/20 05/10/20 05:29 07:50 WBC RBC Hgb Hct MCV MCH MCHC RDW Std Deviation RDW Coeff of Lucina Plt Count MPV Immature Gran % (Auto) Neut % (Auto) Lymph % (Auto) [place] % (Auto) Eos % (Auto) Baso % (Auto) Neut # (Auto) Lymph # (Auto) [place] # (Auto) Eos # (Auto) Baso # (Auto) Immature Gran # (Auto) PT INR APTT PTT Ratio D-Dimer ABG pH ABG pCO2 ABG pO2 ABG HCO3 ABG O2 Saturation ABG Base Excess Joseph Test Barometric Pressure Oxygen Given Sodium 139 Potassium 3.1 L Chloride 103 Carbon Dioxide 28 Anion Gap 8.0 BUN 23 H Creatinine 1.12 Est Cr Clr Drug Dosing 44.5 Est GFR ( Amer) 68.1 Est GFR (Non-Af Amer) 58.7 BUN/Creatinine Ratio 20.7 H Glucose 156 H POC Glucose 157 H Estimat Average Glucose Hemoglobin A1c Lactate Calcium 7.7 L Magnesium Total Bilirubin 0.5 AST 72 H ALT 41 Alkaline Phosphatase 48 Troponin I 3.900 H* NT-Pro-B Natriuret Pep Total Protein 6.6 Albumin 2.4 L Globulin 4.2 H Albumin/Globulin Ratio 0.6 L Beta-Hydroxybutyric Acd Procalcitonin Urine Color Urine Appearance Urine pH Ur Specific [place] Urine Protein Urine Glucose (UA) Urine Ketones Urine Blood Urine Nitrite Urine Bilirubin Urine Urobilinogen Ur Leukocyte Esterase Urine RBC Urine WBC Ur Epithelial Cells Amorphous Sediment Urine Bacteria COVID-19 Eval Order Influ A Molecular Assay Influ B Molecular Assay SARS-CoV-2, RNA, NAAT Blood Type Antibody Screen Medications Administered Current Inpatient Medications Acetaminophen (Acetaminophen 325 Mg Tab) 650 mg PO Q4H PRN PRN Reason: Pain or Fever Stop: 06/08/20 21:16 Aspirin (Aspirin 81 Mg Ectab) 81 mg PO QAM BLAYNE Stop: 06/09/20 08:59 Last Admin: 05/10/20 09:08 Dose: 81 mg Documented by: Dextrose (Dextrose 50% 50 Ml Syringe) 25 - 50 ml IV UD PRN; Protocol PRN Reason: Hypoglycemia Protocol Stop: 06/08/20 21:59 Enoxaparin Sodium (Enoxaparin Inj 40 Mg/0.4 Ml Syr) 40 mg SQ BID BLAYNE Stop: 06/08/20 21:29 Last Admin: 05/10/20 09:13 Dose: 40 mg Documented by: Fluocinonide (Fluocinonide 0.05% Oint 15 Gm Tube) 1 appln EXT BID PRN PRN Reason: dermatitis areas on leg and arms Stop: 06/09/20 08:59 Fluticasone/Vilanterol (Fluticasone/Vilanterol 100/25mcg 14 Puffs/Inhaler) 1 puffs INH DAILY BLAYNE; Protocol Stop: 06/09/20 08:59 Last Admin: 05/10/20 09:07 Dose: 1 puffs Documented by: Glucagon (Glucagon For Inj 1 Mg Vial) 1 mg IM UD PRN; Protocol PRN Reason: Hypoglycemia Protocol Stop: 06/08/20 21:59 Glucose (Glucose 40% Gel 15 Gm Tube) 15 - 30 gm PO UD PRN; Protocol PRN Reason: Hypoglycemia Protocol Stop: 06/08/20 21:59 Glucose (Glucose 10 Tabs/Tube) 4 - 8 tabs PO UD PRN; Protocol PRN Reason: Hypoglycemia Protocol Stop: 06/08/20 21:59 Cefepime HCl 2,000 mg/ Syringe 20 mls @ 5 mls/min IV Q12H BLAYNE; Protocol Stop: 05/17/20 00:00 Last Admin: 05/10/20 00:01 Dose: 5 mls/min Documented by: Doxycycline Hyclate 100 mg/ (Dextrose) 110 mls @ 50 mls/hr IV Q12H [facility] Stop: 05/17/20 08:59 Remdesivir 100 mg/ Sodium (Chloride) 250 mls @ 250 mls/hr IV Q24H [facility]; Protocol Stop: 05/13/20 20:59 Dexamethasone Sodium Phosphate (6 mg/ Syringe) 1.5 mls @ 1 mls/min IV QAM [facility] Stop: 05/18/20 09:02 Last Admin: 05/10/20 09:07 Dose: 1 mls/min Documented by: Insulin Aspart (Insulin Aspart 100 Units/Ml 3 Ml Pen) 0 units SC ACHS [facility]; Protocol Stop: 06/09/20 07:29 Last Admin: 05/10/20 09:12 Dose: 7 units Documented by: Insulin Glargine (Insulin Glargine Solostar 100 Units/Ml 3 Ml Pen) 0 units SC Q12H [facility]; Protocol Stop: 06/09/20 08:59 Last Admin: 05/10/20 09:06 Dose: 10 units Documented by: Insulin Human NPH (Insulin Human Nph) 28 units SC TODAY@0900 [facility] Stop: 06/09/20 08:59 Last Admin: 05/10/20 09:08 Dose: 28 units Documented by: Levothyroxine Sodium (Levothyroxine Sodium 112 Mcg Tablet) 112 mcg PO DAILY@0630 [facility] Stop: 06/09/20 06:29 Last Admin: 05/10/20 06:18 Dose: 112 mcg Documented by: Metoprolol Tartrate (Metoprolol Tartrate 25 Mg Tab) 12.5 mg PO BID [facility] Stop: 06/09/20 09:29 Miscellaneous (Carbohydrates For Hypoglycemia ) 15 - 30 gm PO UD PRN PRN Reason: Hypoglycemia Treatment Stop: 06/08/20 21:59 Miscellaneous Information (Vancomycin Consult Active) 1 ea N/A UD PRN PRN Reason: Consult Stop: 06/08/20 17:26 Miscellaneous Information (Pharmacy Glycemic Mgmt Consult) 1 ea N/A UD PRN PRN Reason: Consult Stop: 06/08/20 21:41 Multivitamins/Minerals (Calcium 600mg + Vit D 400 Iu Tab) 1 tab PO DAILY BLAYNE Stop: 06/09/20 08:59 Last Admin: 05/10/20 09:06 Dose: 1 tab Documented by: Potassium Chloride (Potassium Chloride Crtab 20 Meq Tabcr) 20 meq PO BID BLAYNE Stop: 06/08/20 21:29 Last Admin: 05/10/20 09:06 Dose: 20 meq Documented by: Potassium Chloride (Potassium Chloride Crtab 20 Meq Tabcr) 20 meq PO BID BLAYNE Stop: 06/09/20 08:59 Last Admin: 05/10/20 09:12 Dose: 20 meq Documented by: Pregabalin (Pregabalin 75 Mg Cap) 75 mg PO BID BLAYNE Stop: 06/08/20 21:16 Last Admin: 05/10/20 09:11 Dose: 75 mg Documented by: Simvastatin (Simvastatin 40 Mg Tab) 40 mg PO HS BLAYNE Stop: 06/08/20 21:16 Last Admin: 05/09/20 22:38 Dose: 40 mg Documented by: Sodium Chloride (Sodium Chloride 0.9% 10ml Flush) 30 ml IV Q24H [facility] Stop: 05/13/20 21:01 Vitamin D (Cholecalciferol 1,000 Units 25 Mcg Tab) 1,000 units PO DAILY BLAYNE Stop: 06/09/20 08:59 Last Admin: 05/10/20 09:06 Dose: 1,000 units Documented by: Zolpidem Tartrate (Zolpidem Tartrate 5 Mg Tab) 5 mg PO HS PRN PRN Reason: Insomnia Stop: 06/08/20 21:16 PG Care Time/CCT Total # of Minutes Spent Total Time Spent with Patient: Total time spent is greater than 50% in coordination of care (as documented) at patient's floor/unit and/or counseling patient: Coding Level of Care Code 07585 Subseq Hosp Care Lvl 3 Diagnoses Sepsis A41.9 COVID-19 U07.1 NSTEMI (non-ST elevated myocardial infarction) I21.4 Acute respiratory failure with hypoxia J96.01 Acute on chronic heart failure with preserved ejection fraction I50.33 Type 2 diabetes mellitus E11.9 Hypertension I10 Aortic stenosis I35.0 Cardiac valve disease etiology: etiology unspecified CAD (coronary artery disease) I25.10 Dermatitis L30.9 Prostate cancer C61 DVT prophylaxis Z29.9 (1) Aortic stenosis Cardiac valve disease etiology: etiology unspecified Qualified Code(s): I35.0 - Nonrheumatic aortic (valve) stenosis
[2020-05-10] MEDS: DOXYCYCLINE HYCLATE 100 MG in DEXTROSE 5% 100 ML IV SCH ×2 (09:40→22:29)
[2020-05-10 10:17] LABS: Estimated Average Glucose 177 mg/dl; Hemoglobin A1C 7.8 % (4.5-5.6)
[2020-05-10] MEDS: METOPROLOL TARTRATE 25 MG TAB PO SCH ×2 (10:28→22:28)
[2020-05-10] MEDS ORDERED: VANCOMYCIN HCL 1,250 MG in SODIUM CHLORIDE 0.9% 250 ML IV SCH (12:00)
--- NOTE | 2020-05-10 14:31 | Pharmacy Report ---
Pharmacy Glycemic Short Note 2 - Date of Service May 10, 2020 - Glycemic Short BSG Results (Last 24 hours): 05/09/20 05/09/20 05/09/20 14:53 16:49 19:13 Glucose 329 H* POC Glucose 271 H 268 H 05/09/20 05/09/20 05/10/20 20:42 23:58 05:29 Glucose 156 H POC Glucose 274 H 249 H 05/10/20 05/10/20 07:50 11:55 Glucose POC Glucose 157 H 191 H OUTPATIENT ANTIDIABETIC REGIMEN: * Metformin 500mg PO BID * A1c = 7.8% 05/10/20 ASSESSMENT: * Reasonably well controlled type 2 diabetic admitted for sepsis secondary to viral pneumonia, sepsis, possible superimposed bacterial infection * Metformin has been held and patient was placed on SQ basal/bolus regimen utilizing weight. Basal dose will be scaled given uncertain insulin resistance in the setting of infection and high dose steroids. Novolog doses will be based upon "severe" stress given dexamethasone's exaggerated post- prandial hyperglycemic effects. NPH will be used w/ each dose of dexamethasone to help counter this acute hyperglycemic response. PLAN FOR INPATIENT GLYCEMIC CONTROL: * Hold outpatient oral diabetes medications (metformin) * Basal insulin * Lantus SQ BID per scale: * 0 units if BSG less than 110 * 10 units if 110-180 * 15 units if 181-220 * 22 units if greater than 220 * NPH 28 units (~0.3units/kg) w/ each dose of dexamethasone 6mg IV * Bolus insulin * NovoLog per scale ACHS or Q6hrs while NPO * Goal Range: Low 110 mg/dL - High 140 mg/dL * Correction Factor: 20 mg/dL/unit * Nutritional / Prandial insulin per carb ratio of 1 unit per 6 grams CHO consumed PLAN FOR DISCHARGE: * may resume metformin on discharge if no contraindications present. A1c of 7.8% is likely at goal for patient of this age.
[2020-05-10 14:40] LABS: BUN Creatinine Ratio 23.7 (10-20); Calcium 7.9 mg/dl (8.5-10.1); Creatinine Clr Calc Pharmacy 46.1 ml/min; Est GFR (African American) 71.1; Est GFR (Non-African American) 61.4; Potassium 3.8 mmol/L (3.5-5.1); Troponin I 4.25 ng/ml (0-0.045)
[2020-05-10] MEDS: REMDESIVIR 100 MG in SODIUM CHLORIDE 0.9% 230 ML IV SCH (20:25)
[2020-05-10] MEDS ORDERED: INSULIN ASPART 100 UNITS/ML 3 ML PEN SC SCH (22:00)
[2020-05-10] MEDS: SODIUM CHLORIDE 0.9% 10ML FLUSH IV SCH (22:29)
[2020-05-10] MEDS: SIMVASTATIN 40 MG TAB PO SCH (22:30)
[2020-05-11] MEDS: CEFEPIME 2,000 MG in SYRINGE 0 ML IV SCH ×2 (01:05→12:42)
[2020-05-11] MEDS: ACETAMINOPHEN 325 MG TAB PO PRN ×2 (01:15→13:25)
[2020-05-11] MEDS: ZOLPIDEM TARTRATE 5 MG TAB PO PRN ×2 (01:16→23:27)
[2020-05-11] MEDS: LEVOTHYROXINE SODIUM 112 MCG TABLET PO SCH (06:06)
[2020-05-11 06:16] LABS: Basophils # (auto) 0.02 K/uL (0-0.2); Basophils % (auto) 0.1 %; Hematocrit (blood only) 35.2 % (42-52); Hemoglobin 11.5 g/dL (14.0-18.0); Immature Granulocytes % (auto) 0.5 %; Lymphocytes % (auto) 3.9 %; Mean Corpuscular Hemoglobin 27.6 pg (25-34); Mean Corpuscular Hgb Conc 32.7 g/dL (32-36); Mean Corpuscular Volume 84.6 fL (80-100); Mean Platelet Volume 13.6 fL (7.4-10.4); Monocytes # (auto) 0.96 K/uL (0.11-0.59); Monocytes % (auto) 4.7 %; Neutrophils # (auto) 18.44 K/uL (1.4-6.5); Neutrophils % (auto) 90.8 %; Platelet Count 207 K/uL (130-400); RDW Coefficient of Variation 13.6 % (11.5-14.5); RDW Standard Deviation 41.7 fL (36.4-46.3); Red Blood Count 4.16 M/uL (4.7-6.1); White Blood Count 20.32 K/uL (4.8-10.8)
[2020-05-11 06:47] LABS: Albumin Level 2.2 gm/dl (3.4-5.0); BUN Creatinine Ratio 24.6 (10-20); Calcium 8.7 mg/dl (8.5-10.1); Creatinine Clr Calc Pharmacy 40.7 ml/min; Est GFR (African American) 60.8; Est GFR (Non-African American) 52.5; Magnesium 2.1 mg/dl (1.8-2.4); Potassium 4.1 mmol/L (3.5-5.1)
[2020-05-11 06:49] LABS: Albumin Globulin Ratio 0.6 (0.9-2); Bilirubin,Total 0.5 mg/dl (0.2-1); Globulin 3.8 gm/dl (2.5-4.0)
[2020-05-11] MEDS ORDERED: FUROSEMIDE 40 MG in SYRINGE 0 ML IV ONE (08:46)
--- NOTE | 2020-05-11 08:50 | Hospitalist Progress Note ---
Date of Service May 11, 2020 Assessment & Plan (1) COVID-19: Dexamethasone 6 mg IV daily for total 10 days. Start remdesivir IV 5 day course Convalescent plasma transfused yesterday, tolerated well continues to require high levels of oxygen, 40L and 100% FiO2 labored breathing at baseline, a little worse today guarded prognosis given his co-morbidities will give Lasix 40mg IV x 1 this morning to keep negative fluid balance given his rise in troponin discussed DNR/DNI, he confirms this if he deteriorates further will need to talk about comfort measures (2) NSTEMI (non-ST elevated myocardial infarction): troponin rising to 3 and then to 4 on 05/10 no chest pain or pressure past two days could be type II WI with demand ischemic due to hypoxia and work of breathing will continue on aspirin, metoprolol 12.5mg BID need to get echo to assess for wall motion abnormalities, await that today will discuss with cardiology today (3) Acute respiratory failure with hypoxia: ABG concerning with PaO2 51 on high flow O2 FiO2 100% Aim O2 sats > 90% on 40L and 100% FiO2, next step would be BIPAP he is DNR/DNI prognosis guarded, if his saturations go down he will need BIPAP (4) Sepsis: Source - COVID-19 pneumonia, will cover empirically for bacterial infection, no evidence of UTI Lactate 5.6 (suspect mostly due to hypoxia), going down No fluid bolus due to heart failure. Empiric antibiotics with cefepime, doxycycline, stop Vanco follow up blood and urine cultures - no growth likely stop Cefepime/Doxy tomorrow, no clear signs of bacterial infection (5) Acute on chronic heart failure with preserved ejection fraction: combination of NSTEMI, aortic stenosis limiting outflow mild edema on exam this morning will give Lasix 40mg IV x 1, has breanna, monitor response (6) Type 2 diabetes mellitus: HbA1c 7.7 in July. Insulin NPH 28 units in AM with dexamethasone Consult pharmacy for glycemic control with insulin. Hold metformin. monitor for hypo and hyperglycemia, no episodes (7) Hypertension: Hold lisinopril, and norvasc and imdur resume metopolol at 12.5mg BID BP is low normal, HR stable on monitor (8) Aortic stenosis: Severe on echocardiogram in August 2019. [address] Dr[address] Martin as an outpatient - declined intervention for this. he is DNR/DNI which is appropriate (9) CAD (coronary artery disease): Unclear why he is not on antiplatelet. Prior stent to RCA per outpatient. Will give ASA 324mg PO chew now then 81mg PO daily. Continue simvastatin 40mg PO HS metoprolol 12.5mg BID now with troponin of 4, could be demand ischemia vs NSTEMI check echo, consult cardiology (10) Dermatitis: Fluocinonide BID PRN (11) Prostate cancer: On Eligard injections every 6 months. Last taken 2 weeks previously. (12) DVT prophylaxis: Lovenox 40 mg SQ BID (elevated d-dimer in setting of COVID-19) Admission and Anticipated Discharge Date Admission Date: May 09, 2020 Subjective patient sitting up in a chair, says his breathing is worse than yesterday appetite is okay, ate half his breakfast discussed rise in troponin, he denies any chest pain or pressure recently, just shortness of breath said he had a major heart attack 12 years ago, sent to [facility] no fever/chills, no cough, no diarrhea labs show WBC 20k, hb 11, Cr 1.23, K 4.1, BUN 30 awaiting echo and will need to discuss with cardiology Review of Systems Review of Systems: All systems reviewed & are unremarkable except as noted in Subjective Physical Exam Constitutional: well developed, + ill appearing and + frail appearing; no acute distress Neck: trachea midline, no thyromegaly Respiratory: + labored breathing, able to speak in complete sentences and + tachypneic; no respiratory distress Auscultation: no crackles, no rales, no rhonchi and no wheezes Cardiovascular: Rate/Rhythm: regular rate and regular rhythm Heart Sounds: normal S1, normal S2 and + murmur (systolic) Extremities: normal capillary refill and + edema (trace bilaterally) Gastrointestinal (Abdomen): normal bowel sounds, soft, nontender, no hepatosplenomegaly Musculoskeletal: no cyanosis or clubbing, extremities motor strength 5/5 Skin: no rashes, warm and dry Neurologic: patellar DTR's 2+ bilat, sensation intact and PERRL, EOMI, acc ommodation nl, no face palsy, no dysarthria Psychiatric: A+Ox3, euthymic affect Lymphatic: no cervical or axillary lymphadenopathy Results & Data Results & Data ([facility]) Vital Signs (Past 12 Hours) Vital Signs Temp Pulse Pulse Resp BP BP Pulse Ox 05/11/20 07:34 65 05/11/20 07:30 36.6 C 66 19 134/57 L 89 L 05/11/20 03:51 36.4 C L 66 24 125/62 92 05/11/20 02:28 64 21 89 L 05/11/20 00:14 37.1 C 66 24 130/70 94 05/10/20 23:40 37.1 C 76 24 133/61 94 05/10/20 23:00 68 22 92 05/10/20 22:40 36.5 C 76 18 134/61 92 05/10/20 22:10 36.6 C 71 18 131/70 94 05/10/20 21:55 37.1 C 68 18 147/65 H 94 05/10/20 21:35 36.9 C 70 18 134/65 91 Laboratory Results Laboratory Results - last 24 hr 05/10/20 05/10/20 05/10/20 05:29 11:55 13:46 WBC RBC Hgb Hct MCV MCH MCHC RDW Std Deviation RDW Coeff of Lucina Plt Count MPV Immature Gran % (Auto) Neut % (Auto) Lymph % (Auto) Prentiss % (Auto) Eos % (Auto) Baso % (Auto) Neut # (Auto) Lymph # (Auto) Prentiss # (Auto) Eos # (Auto) Baso # (Auto) Immature Gran # (Auto) Sodium 137 Potassium 3.8 D Chloride 103 Carbon Dioxide 29 Anion Gap 5.0 BUN 26 H Creatinine 1.08 Est Cr Clr Drug Dosing 46.1 Est GFR ( Amer) 71.1 Est GFR (Non-Af Amer) 61.4 BUN/Creatinine Ratio 23.7 H Glucose 161 H POC Glucose 191 H Estimat Average Glucose 177 Hemoglobin A1c 7.8 H Calcium 7.9 L Magnesium Total Bilirubin AST ALT Alkaline Phosphatase Troponin I 4.250 H* Total Protein Albumin Globulin Albumin/Globulin Ratio Nasal Screen MRSA (PCR) 05/10/20 05/10/20 05/11/20 16:05 20:09 05:19 WBC 20.32 H RBC 4.16 L Hgb 11.5 L Hct 35.2 L MCV 84.6 MCH 27.6 MCHC 32.7 RDW Std Deviation 41.7 RDW Coeff of Lucina 13.6 Plt Count 207 MPV 13.6 H Immature Gran % (Auto) 0.5 Neut % (Auto) 90.8 Lymph % (Auto) 3.9 Prentiss % (Auto) 4.7 Eos % (Auto) 0.0 Baso % (Auto) 0.1 Neut # (Auto) 18.44 H Lymph # (Auto) 0.80 L Prentiss # (Auto) 0.96 H Eos # (Auto) 0.00 Baso # (Auto) 0.02 Immature Gran # (Auto) 0.10 H Sodium Potassium Chloride Carbon Dioxide Anion Gap BUN Creatinine Est Cr Clr Drug Dosing Est GFR ( Amer) Est GFR (Non-Af Amer) BUN/Creatinine Ratio Glucose POC Glucose 117 H 172 H Estimat Average Glucose Hemoglobin A1c Calcium Magnesium Total Bilirubin AST ALT Alkaline Phosphatase Troponin I Total Protein Albumin Globulin Albumin/Globulin Ratio Nasal Screen MRSA (PCR) 05/11/20 05/11/20 05/11/20 05:19 07:32 Unknown WBC RBC Hgb Hct MCV MCH MCHC RDW Std Deviation RDW Coeff of Lucina Plt Count MPV Immature Gran % (Auto) Neut % (Auto) Lymph % (Auto) Prentiss % (Auto) Eos % (Auto) Baso % (Auto) Neut # (Auto) Lymph # (Auto) Prentiss # (Auto) Eos # (Auto) Baso # (Auto) Immature Gran # (Auto) Sodium 140 Potassium 4.1 Chloride 105 Carbon Dioxide 26 Anion Gap 8.0 BUN 30 H Creatinine 1.23 Est Cr Clr Drug Dosing 40.7 Est GFR ( Amer) 60.8 Est GFR (Non-Af Amer) 52.5 BUN/Creatinine Ratio 24.6 H Glucose 109 H POC Glucose 118 H Estimat Average Glucose Hemoglobin A1c Calcium 8.7 Magnesium 2.1 Total Bilirubin 0.5 AST 92 H ALT 60 Alkaline Phosphatase 46 Troponin I Total Protein 6.0 L Albumin 2.2 L Globulin 3.8 Albumin/Globulin Ratio 0.6 L Nasal Screen MRSA (PCR) Negative Medications Administered Current Inpatient Medications Acetaminophen (Acetaminophen 325 Mg Tab) 650 mg PO Q4H PRN PRN Reason: Pain or Fever Stop: 06/08/20 21:16 Last Admin: 05/11/20 01:15 Dose: 650 mg Documented by: Aspirin (Aspirin 81 Mg Ectab) [facility] [place]: 06/09/20 08:59 Last Admin: 05/10/20 09:08 Dose: 81 mg Documented by: Dextrose (Dextrose 50% 50 Ml Syringe) 25 - 50 ml IV UD PRN; Protocol PRN Reason: Hypoglycemia Protocol Stop: 06/08/20 21:59 Enoxaparin Sodium (Enoxaparin Inj 40 Mg/0.4 Ml Syr) 40 mg SQ BID [facility] Stop: 06/08/20 21:29 Last Admin: 05/10/20 22:29 Dose: 40 mg Documented by: Fluocinonide (Fluocinonide 0.05% Oint 15 Gm Tube) 1 appln EXT BID PRN PRN Reason: dermatitis areas on leg and arms Stop: 06/09/20 08:59 Fluticasone/Vilanterol (Fluticasone/Vilanterol 100/25mcg 14 Puffs/Inhaler) 1 puffs INH DAILY [facility]; Protocol Stop: 06/09/20 08:59 Last Admin: 05/10/20 09:07 Dose: 1 puffs Documented by: Glucagon (Glucagon For Inj 1 Mg Vial) 1 mg IM UD PRN; Protocol PRN Reason: Hypoglycemia Protocol Stop: 06/08/20 21:59 Glucose (Glucose 40% Gel 15 Gm Tube) 15 - 30 gm PO UD PRN; Protocol PRN Reason: Hypoglycemia Protocol Stop: 06/08/20 21:59 Glucose (Glucose 10 Tabs/Tube) 4 - 8 tabs PO UD PRN; Protocol PRN Reason: Hypoglycemia Protocol Stop: 06/08/20 21:59 Cefepime HCl 2,000 mg/ Syringe 20 mls @ 5 mls/min IV Q12H [facility]; Protocol Stop: 05/17/20 00:00 Last Admin: 05/11/20 01:05 Dose: 5 mls/min Documented by: Doxycycline Hyclate 100 mg/ (Dextrose) 110 mls @ 50 mls/hr IV Q12H [facility] Stop: 05/17/20 08:59 Last Infusion: 05/11/20 00:28 Dose: Infused Documented by: Remdesivir 100 mg/ Sodium (Chloride) 250 mls @ 250 mls/hr IV Q24H [facility]; Protocol Stop: 05/13/20 20:59 Last Infusion: 05/10/20 21:25 Dose: Infused Documented by: Dexamethasone Sodium Phosphate (6 mg/ Syringe) 1.5 mls @ 1 mls/min IV QAM [facility] Stop: 05/18/20 09:02 Last Admin: 05/10/20 09:07 Dose: 1 mls/min Documented by: Furosemide 40 mg/ Syringe 4 mls @ 4 mls/min IV ONE ONE Stop: 05/11/20 08:47 Insulin Aspart (Insulin Aspart 100 Units/Ml 3 Ml Pen) 0 units SC ACHS [facility]; Protocol Stop: 06/09/20 07:29 Last Admin: 05/10/20 21:45 Dose: 2 units Documented by: Insulin Glargine (Insulin Glargine Solostar 100 Units/Ml 3 Ml Pen) 0 units SC Q12H [facility]; Protocol Stop: 06/09/20 08:59 Last Admin: 05/10/20 21:42 Dose: 10 units Documented by: Insulin Human NPH (Insulin Human Nph) 28 units SC TODAY@0900 [facility] Stop: 06/09/20 08:59 Last Admin: 05/10/20 09:08 Dose: 28 units Documented by: Levothyroxine Sodium (Levothyroxine Sodium 112 Mcg Tablet) 112 mcg PO DAILY@0630 [facility] Stop: 06/09/20 06:29 Last Admin: 05/11/20 06:06 Dose: 112 mcg Documented by: Metoprolol Tartrate (Metoprolol Tartrate 25 Mg Tab) 12.5 mg PO BID [facility] Stop: 06/09/20 09:29 Last Admin: 05/10/20 22:28 Dose: 12.5 mg Documented by: Miscellaneous (Carbohydrates For Hypoglycemia ) 15 - 30 gm PO UD PRN PRN Reason: Hypoglycemia Treatment Stop: 06/08/20 21:59 Miscellaneous Information (Pharmacy Glycemic Mgmt Consult) 1 ea N/A UD PRN PRN Reason: Consult Stop: 06/08/20 21:41 Multivitamins/Minerals (Calcium 600mg + Vit D 400 Iu Tab) 1 tab PO DAILY [facility] Stop: 06/09/20 08:59 Last Admin: 05/10/20 09:06 Dose: 1 tab Documented by: Potassium Chloride (Potassium Chloride Crtab 20 Meq Tabcr) 20 meq PO BID [facility] Stop: 06/08/20 21:29 Last Admin: 05/10/20 21:50 Dose: Not Given Documented by: Potassium Chloride (Potassium Chloride Crtab 20 Meq Tabcr) 20 meq PO BID [facility] Stop: 06/09/20 08:59 Last Admin: 05/10/20 22:27 Dose: 20 meq Documented by: Pregabalin (Pregabalin 75 Mg Cap) 75 mg PO BID [facility] Stop: 06/08/20 21:16 Last Admin: 05/10/20 22:28 Dose: 75 mg Documented by: Simvastatin (Simvastatin 40 Mg Tab) 40 mg PO HS [facility] Stop: 06/08/20 21:16 Last Admin: 05/10/20 22:30 Dose: 40 mg Documented by: Sodium Chloride (Sodium Chloride 0.9% 10ml Flush) 30 ml IV Q24H [facility] Stop: 05/13/20 21:01 Last Admin: 05/10/20 22:29 Dose: 30 ml Documented by: Vitamin D (Cholecalciferol 1,000 Units 25 Mcg Tab) 1,000 units PO DAILY [facility] Stop: 06/09/20 08:59 Last Admin: 05/10/20 09:06 Dose: 1,000 units Documented by: Zolpidem Tartrate (Zolpidem Tartrate 5 Mg Tab) 5 mg PO HS PRN PRN Reason: Insomnia Stop: 06/08/20 21:16 Last Admin: 05/11/20 01:16 Dose: 5 mg Documented by: PG Care Time/CCT Total # of Minutes Spent Total Time Spent with Patient: Total time spent is greater than 50% in coordination of care (as documented) at patient's floor/unit and/or counseling patient: Coding Level of Care Code 12069 Subseq Hosp Care Lvl 3 Diagnoses COVID-19 U07.1 NSTEMI (non-ST elevated myocardial infarction) I21.4 Acute respiratory failure with hypoxia J96.01 Sepsis A41.9 Acute on chronic heart failure with preserved ejection fraction I50.33 Type 2 diabetes mellitus E11.9 Hypertension I10 Aortic stenosis I35.0 Cardiac valve disease etiology: etiology unspecified CAD (coronary artery disease) I25.10 Dermatitis L30.9 Prostate cancer C61 DVT prophylaxis Z29.9 (1) Aortic stenosis Cardiac valve disease etiology: etiology unspecified Qualified Code(s): I35.0 - Nonrheumatic aortic (valve) stenosis
[2020-05-11] MEDS ORDERED: FUROSEMIDE 40 MG/4 ML VIAL IV ONE (09:00)
[2020-05-11] MEDS: FLUTICASONE/VILANTEROL 100/25MCG 14 PUFFS/INHALER INH SCH (09:10)
[2020-05-11] MEDS: INSULIN ASPART 100 UNITS/ML 3 ML PEN SC SCH ×4 (09:15→21:45)
[2020-05-11] MEDS: INSULIN GLARGINE SOLOSTAR 100 UNITS/ML 3 ML PEN SC SCH ×2 (09:16→21:45)
[2020-05-11] MEDS: INSULIN HUMAN NPH SC SCH (09:16)
[2020-05-11] MEDS: PREGABALIN 75 MG CAP PO SCH ×2 (09:19→20:01)
[2020-05-11] MEDS: POTASSIUM CHLORIDE CRTAB 20 MEQ TABCR PO SCH ×3 (09:19→20:01)
[2020-05-11] MEDS: ENOXAPARIN INJ 40 MG/0.4 ML SYR SQ SCH ×2 (09:20→20:01)
[2020-05-11] MEDS: DEXAMETHASONE SOD PHOSPHATE 6 MG in SYRINGE 0 ML IV SCH (09:21)
[2020-05-11] MEDS: CALCIUM 600MG + VIT D 400 IU TAB PO SCH (09:21)
[2020-05-11] MEDS: ASPIRIN 81 MG ECTAB PO SCH (09:21)
[2020-05-11] MEDS: CHOLECALCIFEROL 1,000 UNITS 25 MCG TAB PO SCH (09:22)
[2020-05-11] MEDS: METOPROLOL TARTRATE 25 MG TAB PO SCH ×2 (09:22→20:03)
[2020-05-11] MEDS: DOXYCYCLINE HYCLATE 100 MG in DEXTROSE 5% 100 ML IV SCH ×2 (09:27→20:02)
--- NOTE | 2020-05-11 11:42 | Pharmacy Report ---
Pharmacy Glycemic Short Note 2 - Date of Service May 11, 2020 - Glycemic Short BSG Results (Last 24 hours): 05/10/20 05/10/20 05/10/20 11:55 13:46 16:05 Glucose 161 H POC Glucose 191 H 117 H 05/10/20 05/11/20 05/11/20 20:09 05:19 07:32 Glucose 109 H POC Glucose 172 H 118 H OUTPATIENT ANTIDIABETIC REGIMEN: * Metformin 500mg PO BID * A1c = 7.8% 05/10/20 ASSESSMENT: 05/11 * 72 units SQ insulin administered over last 24 hrs while tolerating a diet. * BSG control has been quite good with the current orders * Fasting BSG 109 this AM with 20 units Lantus on board. He had also received 28 units NPH in the AM yesterday w/ dexamethasone IV. * Dexamethasone 6mg IV continues (day # 3) * Post prandial BSGs mostly at goal w/ current Novolog doses (and AM NPH dose) 05/10 * Reasonably well controlled type 2 diabetic admitted for sepsis secondary to viral pneumonia, sepsis, possible superimposed bacterial infection * Metformin has been held and patient was placed on SQ basal/bolus regimen utilizing weight. Basal dose will be scaled given uncertain insulin resistance in the setting of infection and high dose steroids. Novolog doses will be based upon "severe" stress given dexamethasone's exaggerated post- prandial hyperglycemic effects. NPH will be used w/ each dose of dexamethasone to help counter this acute hyperglycemic response. PLAN FOR INPATIENT GLYCEMIC CONTROL: * Hold outpatient oral diabetes medications (metformin) * Basal insulin - no change * Lantus SQ BID per scale: * 0 units if BSG less than 110 * 10 units if 110-180 * 15 units if 181-220 * 22 units if greater than 220 * NPH 28 units (~0.3units/kg) w/ each dose of dexamethasone 6mg IV (no change) * Bolus insulin - no change * NovoLog per scale ACHS or Q6hrs while NPO * Goal Range: Low 110 mg/dL - High 140 mg/dL * Correction Factor: 20 mg/dL/unit * Nutritional / Prandial insulin per carb ratio of 1 unit per 6 grams CHO consumed PLAN FOR DISCHARGE: * may resume metformin on discharge if no contraindications present. A1c of 7.8% is likely at goal for patient of this age.
--- NOTE | 2020-05-11 19:29 | XCELERA ---
[id number]
[2020-05-11] MEDS: REMDESIVIR 100 MG in SODIUM CHLORIDE 0.9% 230 ML IV SCH (20:00)
[2020-05-11] MEDS: SIMVASTATIN 40 MG TAB PO SCH (20:05)
[2020-05-11] MEDS: SODIUM CHLORIDE 0.9% 10ML FLUSH IV SCH (21:47)
[2020-05-12] MEDS: CEFEPIME 2,000 MG in SYRINGE 0 ML IV SCH ×2 (01:14→12:29)
[2020-05-12] MEDS: LEVOTHYROXINE SODIUM 112 MCG TABLET PO SCH (05:58)
[2020-05-12 06:52] LABS: Hematocrit (blood only) 35.9 % (42-52); Mean Corpuscular Hemoglobin 27.8 pg (25-34); Mean Corpuscular Hgb Conc 33.4 g/dL (32-36); Mean Corpuscular Volume 83.3 fL (80-100); Mean Platelet Volume 13.1 fL (7.4-10.4); Platelet Count 234 K/uL (130-400); RDW Coefficient of Variation 13.6 % (11.5-14.5); RDW Standard Deviation 41.1 fL (36.4-46.3); Red Blood Count 4.31 M/uL (4.7-6.1); White Blood Count 17.37 K/uL (4.8-10.8)
[2020-05-12 07:14] LABS: Basophils # (auto) 0.04 K/uL (0-0.2); Basophils % (auto) 0.2 %; Eosinophils # (auto) 0.01 K/uL (0-0.5); Eosinophils % (auto) 0.1 %; Immature Granulocytes # (auto) 0.13 K/uL (0.00-0.02); Immature Granulocytes % (auto) 0.7 %; Lymphocytes % (auto) 5.8 %; Monocytes # (auto) 1.16 K/uL (0.11-0.59); Monocytes % (auto) 6.7 %; Neutrophils # (auto) 15.03 K/uL (1.4-6.5); Neutrophils % (auto) 86.5 %
[2020-05-12 07:24] LABS: Albumin Globulin Ratio 0.5 (0.9-2); Albumin Level 2.1 gm/dl (3.4-5.0); BUN Creatinine Ratio 33.6 (10-20); Bilirubin,Total 0.4 mg/dl (0.2-1); Creatinine Clr Calc Pharmacy 58.5 ml/min; Est GFR (African American) 90.4; Globulin 3.9 gm/dl (2.5-4.0); Magnesium 2.3 mg/dl (1.8-2.4); Potassium 3.8 mmol/L (3.5-5.1)
[2020-05-12] MEDS ORDERED: INSULIN ASPART 100 UNITS/ML 3 ML PEN SC SCH ×2 (07:30→11:30)
[2020-05-12] MEDS ORDERED: FUROSEMIDE 40 MG in SYRINGE 0 ML IV ONE (07:35)
[2020-05-12] MEDS ORDERED: FUROSEMIDE 40 MG/4 ML VIAL IV ONE (07:45)
[2020-05-12] MEDS: FLUTICASONE/VILANTEROL 100/25MCG 14 PUFFS/INHALER INH SCH (08:35)
[2020-05-12] MEDS: DEXAMETHASONE SOD PHOSPHATE 6 MG in SYRINGE 0 ML IV SCH (08:36)
[2020-05-12] MEDS: CHOLECALCIFEROL 1,000 UNITS 25 MCG TAB PO SCH (08:40)
[2020-05-12] MEDS: PREGABALIN 75 MG CAP PO SCH ×2 (08:40→20:16)
[2020-05-12] MEDS: POTASSIUM CHLORIDE CRTAB 20 MEQ TABCR PO SCH ×2 (08:41→20:18)
[2020-05-12] MEDS: METOPROLOL TARTRATE 25 MG TAB PO SCH (08:41)
[2020-05-12] MEDS: CALCIUM 600MG + VIT D 400 IU TAB PO SCH (08:41)
[2020-05-12] MEDS: ASPIRIN 81 MG ECTAB PO SCH (08:41)
[2020-05-12] MEDS: DOXYCYCLINE HYCLATE 100 MG in DEXTROSE 5% 100 ML IV SCH (08:42)
[2020-05-12] MEDS: INSULIN HUMAN NPH SC SCH (08:42)
[2020-05-12] MEDS: ENOXAPARIN INJ 40 MG/0.4 ML SYR SQ SCH (08:44)
--- NOTE | 2020-05-12 09:52 | Hospitalist Progress Note ---
Date of Service May 12, 2020 Assessment & Plan (1) COVID-19: Dexamethasone 6 mg IV daily for total 10 days, day 3 Start remdesivir IV 5 day course day 3 Convalescent plasma transfused 05/10, tolerated well continues to require high levels of oxygen, 40L and 100% FiO2 now with saturations 85% labored breathing, getting worse will try BIPAP to offload heart given his severe and low EF very poor prognosis given his co-morbidities he confirms he is DNR/DNI this morning, if he gets worse just make him comfortable Lasix 40mg IV now and will repeat this afternoon given his EF 45% (2) Acute systolic heart failure: echo with EF 40-45%, this is new finding coupled with severe and Aortic regurgitation, not a good prognosis Lasix 40mg IV BID to keep lungs dry has some peripheral edema likely a result of NSTEMI, he denies chest pain (3) NSTEMI (non-ST elevated myocardial infarction): troponin rising to 3 and then to 4 on 05/10 no chest pain or pressure past three days could be type II CT with demand ischemic due to hypoxia and work of breathing will continue on aspirin, metoprolol 12.5mg BID echo with EF 40-45% which is new finding, new wall motion abnormalities EKG today with no acute ischemic changes on my read (4) Acute respiratory failure with hypoxia: ABG concerning with PaO2 51 on high flow O2 FiO2 100% on admission Aim O2 sats > 90% on 40L and 100% FiO2 with saturations 85% will try BIPAP during the day today and at night he is DNR/DNI prognosis guarded (5) Sepsis: Source - COVID-19 pneumonia, will cover empirically for bacterial infection, no evidence of UTI Lactate 5.6 (suspect mostly due to hypoxia), going down No fluid bolus due to heart failure. Empiric antibiotics with cefepime, doxycycline, stop Vanco follow up blood and urine cultures - no growth stop Cefepime/Doxy today, no clear signs of bacterial infection dyspnea is combination of COVID and CHF (6) Acute on chronic heart failure with preserved ejection fraction: combination of NSTEMI, aortic stenosis limiting outflow now with EF of 40-45% as well lasix 40mg IV BID (7) Type 2 diabetes mellitus: HbA1c 7.7 in July. Insulin NPH 28 units in AM with dexamethasone Consult pharmacy for glycemic control with insulin. Hold metformin. monitor for hypo and hyperglycemia, no episodes (8) Hypertension: Hold lisinopril, and norvasc and imdur resume metopolol at 12.5mg BID BP is low normal, HR stable on monitor (9) Aortic stenosis: Severe on echocardiogram in August 2019. Under Dr. Martin as an outpatient - declined intervention for this. he is DNR/DNI which is appropriate (10) CAD (coronary artery disease): Unclear why he is not on antiplatelet. Prior stent to RCA per outpatient. Will give ASA 324mg PO chew now then 81mg PO daily. Continue simvastatin 40mg PO HS metoprolol 12.5mg BID now with troponin of 4, could be demand ischemia vs NSTEMI check echo, consult cardiology (11) Dermatitis: Fluocinonide BID PRN (12) Prostate cancer: On Eligard injections every 6 months. Last taken 2 weeks previously. (13) DVT prophylaxis: Lovenox 40 mg SQ BID (elevated d-dimer in setting of COVID-19) Admission and Anticipated Discharge Date Admission Date: May 09, 2020 Subjective patient's saturations in the mid 80's today on 40L and 100% FiO2 says he feels short of breath, not in any distress monitor with some ST depressions, will check EKG he ate a little breakfast, drank his coffee, not very hungry reviewed labs,WBC 17k, hb 12, K 3.8 and C 0.86 will give Lasix 40mg IV for the hypoxia and try BIPAP for a while discussed poor prognosis, he again confirms that he is DNI/DNR, he is okay if he does not survive reviewed echo, has reduced EF at 40-45% which is new and he has new wall motion abnormalities has severe aortic stenosis with regurgitation attempted to call his daughter twice with no answer, will call again this a fternoon Review of Systems Review of Systems: All systems reviewed & are unremarkable except as noted in Subjective Constitutional: + fatigue and + weakness; no fever Respiratory: + dyspnea and + dyspnea on exertion; no cough and no wheezing Cardiovascular: no chest pain, no palpitations, no syncope and no edema Gastrointestinal: + early satiety; no abdominal pain, no nausea, no vomiting, no constipation and no diarrhea/loose stools Physical Exam Constitutional: well developed, + ill appearing and + frail appearing; no acute distress Neck: trachea midline, no thyromegaly Respiratory: + respiratory distress, + labored breathing, + uses accessory muscles and + tachypneic; + not able to speak in complete sentence Auscultation: no crackles, no rales, no rhonchi and no wheezes Cardiovascular: RRR, no murmur, no edema Rate/Rhythm: regular rate and regular rhythm Heart Sounds: normal S1, normal S2 and + murmur (systolic) Extremities: normal capillary refill and + edema (trace bilaterally) Gastrointestinal (Abdomen): normal bowel sounds, soft, nontender, no he patosplenomegaly Musculoskeletal: no cyanosis or clubbing, extremities motor strength 5/5 Skin: no rashes, warm and dry Neurologic: patellar DTR's 2+ bilat, sensation intact and PERRL, EOMI, accommodation nl, no face palsy, no dysarthria Psychiatric: A+Ox3, euthymic affect Lymphatic: no cervical or axillary lymphadenopathy Results & Data Results & Data ([facility]) Vital Signs (Past 12 Hours) Vital Signs Temp Pulse Pulse Resp BP Pulse Ox 05/12/20 08:26 37.2 C 79 21 134/79 100 05/12/20 07:40 66 05/12/20 03:34 36.6 C 63 22 148/75 H 90 05/12/20 02:21 72 20 89 L 05/11/20 23:59 57 L 05/11/20 23:31 72 22 92 05/11/20 23:23 74 22 157/67 H 87 L 05/11/20 22:00 58 L Laboratory Results Laboratory Results - last 24 hr 05/11/20 05/11/20 05/11/20 11:55 16:16 20:21 WBC RBC Hgb Hct MCV MCH MCHC RDW Std Deviation RDW Coeff of Lcuina Plt Count MPV Immature Gran % (Auto) Neut % (Auto) Lymph % (Auto) Robeson % (Auto) Eos % (Auto) Baso % (Auto) Neut # (Auto) Lymph # (Auto) Robeson # (Auto) Eos # (Auto) Baso # (Auto) Immature Gran # (Auto) Sodium Potassium Chloride Carbon Dioxide Anion Gap BUN Creatinine Est Cr Clr Drug Dosing Est GFR ( Amer) Est GFR (Non-Af Amer) BUN/Creatinine Ratio Glucose POC Glucose 184 H 108 H 112 H Calcium Magnesium Total Bilirubin AST ALT Alkaline Phosphatase Total Protein Albumin Globulin Albumin/Globulin Ratio 05/12/20 05/12/20 05/12/20 05:45 05:45 07:19 WBC 17.37 H RBC 4.31 L Hgb 12.0 L Hct 35.9 L MCV 83.3 MCH 27.8 MCHC 33.4 RDW Std Deviation 41.1 RDW Coeff of Lucina 13.6 Plt Count 234 MPV 13.1 H Immature Gran % (Auto) 0.7 Neut % (Auto) 86.5 Lymph % (Auto) 5.8 Robeson % (Auto) 6.7 Eos % (Auto) 0.1 Baso % (Auto) 0.2 Neut # (Auto) 15.03 H Lymph # (Auto) 1.00 L Robeson # (Auto) 1.16 H Eos # (Auto) 0.01 Baso # (Auto) 0.04 Immature Gran # (Auto) 0.13 H Sodium 136 Potassium 3.8 Chloride 104 Carbon Dioxide 27 Anion Gap 5.0 BUN 29 H Creatinine 0.86 D Est Cr Clr Drug Dosing 58.5 Est GFR ( Amer) 90.4 Est GFR (Non-Af Amer) 78.0 BUN/Creatinine Ratio 33.6 H Glucose 79 POC Glucose 83 Calcium 8.0 L Magnesium 2.3 Total Bilirubin 0.4 AST 75 H ALT 58 Alkaline Phosphatase 52 Total Protein 6.0 L Albumin 2.1 L Globulin 3.9 Albumin/Globulin Ratio 0.5 L Medications Administered Current Inpatient Medications Acetaminophen (Acetaminophen 325 Mg Tab) 650 mg PO Q4H PRN PRN Reason: Pain or Fever Stop: 06/08/20 21:16 Last Admin: 05/11/20 13:25 Dose: 650 mg Documented by: Aspirin (Aspirin 81 Mg Ectab) 81 mg PO QAM [facility] Stop: 06/09/20 08:59 Last Admin: 05/12/20 08:41 Dose: 81 mg Documented by: Dextrose (Dextrose 50% 50 Ml Syringe) 25 - 50 ml IV UD PRN; Protocol PRN Reason: Hypoglycemia Protocol Stop: 06/08/20 21:59 Enoxaparin Sodium (Enoxaparin Inj 40 Mg/0.4 Ml Syr) 40 mg SQ BID [facility] Stop: 06/08/20 21:29 Last Admin: 05/12/20 08:44 Dose: 40 mg Documented by: Fluocinonide (Fluocinonide 0.05% Oint 15 Gm Tube) 1 appln EXT BID PRN PRN Reason: dermatitis areas on leg and arms Stop: 06/09/20 08:59 Fluticasone/Vilanterol (Fluticasone/Vilanterol 100/25mcg 14 Puffs/Inhaler) 1 puffs INH DAILY [facility]; Protocol Stop: 06/09/20 08:59 Last Admin: 05/12/20 08:35 Dose: 1 puffs Documented by: Glucagon (Glucagon For Inj 1 Mg Vial) 1 mg IM UD PRN; Protocol PRN Reason: Hypoglycemia Protocol Stop: 06/08/20 21:59 Glucose (Glucose 40% Gel 15 Gm Tube) 15 - 30 gm PO UD PRN; Protocol PRN Reason: Hypoglycemia Protocol Stop: 06/08/20 21:59 Glucose (Glucose 10 Tabs/Tube) 4 - 8 tabs PO UD PRN; Protocol PRN Reason: Hypoglycemia Protocol Stop: 06/08/20 21:59 Cefepime HCl 2,000 mg/ Syringe 20 mls @ 5 mls/min IV Q12H [facility]; Protocol Stop: 05/17/20 00:00 Last Admin: 05/12/20 01:14 Dose: 5 mls/min Documented by: Doxycycline Hyclate 100 mg/ (Dextrose) 110 mls @ 50 mls/hr IV Q12H [facility] Stop: 05/17/20 08:59 Last Admin: 05/12/20 08:42 Dose: 50 mls/hr Documented by: Remdesivir 100 mg/ Sodium (Chloride) 250 mls @ 250 mls/hr IV Q24H [facility]; Protocol Stop: 05/13/20 20:59 Last Infusion: 05/11/20 21:48 Dose: Infused Documented by: Dexamethasone Sodium Phosphate (6 mg/ Syringe) 1.5 mls @ 1 mls/min IV QAM [facility] Stop: 05/18/20 09:02 Last Admin: 05/12/20 08:36 Dose: 1 mls/min Documented by: Insulin Aspart (Insulin Aspart 100 Units/Ml 3 Ml Pen) 0 units SC DAILY@1130,1630,2100 [facility]; Protocol Stop: 06/11/20 11:29 Insulin Aspart (Insulin Aspart 100 Units/Ml 3 Ml Pen) 0 units SC DAILY@0730 [facility]; Protocol Stop: 06/11/20 07:29 Last Admin: 05/12/20 08:43 Dose: 3 units Documented by: Insulin Human NPH (Insulin Human Nph) 28 units SC TODAY@0900 [facility] Stop: 06/09/20 08:59 Last Admin: 05/12/20 08:42 Dose: 28 units Documented by: Levothyroxine Sodium (Levothyroxine Sodium 112 Mcg Tablet) 112 mcg PO DAILY@0630 [facility] Stop: 06/09/20 06:29 Last Admin: 05/12/20 05:58 Dose: 112 mcg Documented by: Metoprolol Tartrate (Metoprolol Tartrate 25 Mg Tab) 12.5 mg PO BID [facility] Stop: 06/09/20 09:29 Last Admin: 05/12/20 08:41 Dose: 12.5 mg Documented by: Miscellaneous (Carbohydrates For Hypoglycemia ) 15 - 30 gm PO UD PRN PRN Reason: Hypoglycemia Treatment Stop: 06/08/20 21:59 Miscellaneous Information (Pharmacy Glycemic Mgmt Consult) 1 ea N/A UD PRN PRN Reason: Consult Stop: 06/08/20 21:41 Multivitamins/Minerals (Calcium 600mg + Vit D 400 Iu Tab) 1 tab PO DAILY [facility] Stop: 06/09/20 08:59 Last Admin: 05/12/20 08:41 Dose: 1 tab Documented by: Potassium Chloride (Potassium Chloride Crtab 20 Meq Tabcr) 20 meq PO BID [facility] Stop: 06/08/20 21:29 Last Admin: 05/12/20 08:41 Dose: 20 meq Documented by: Pregabalin (Pregabalin 75 Mg Cap) 75 mg PO BID [facility] Stop: 06/08/20 21:16 Last Admin: 05/12/20 08:40 Dose: 75 mg Documented by: Simvastatin (Simvastatin 40 Mg Tab) 40 mg PO HS [facility] Stop: 06/08/20 21:16 Last Admin: 05/11/20 20:05 Dose: 40 mg Documented by: Sodium Chloride (Sodium Chloride 0.9% 10ml Flush) 30 ml IV Q24H [facility] Stop: 05/13/20 21:01 Last Admin: 05/11/20 21:47 Dose: 30 ml Documented by: Vitamin D (Cholecalciferol 1,000 Units 25 Mcg Tab) 1,000 units PO DAILY [facility] Stop: 06/09/20 08:59 Last Admin: 05/12/20 08:40 Dose: 1,000 units Documented by: Zolpidem Tartrate (Zolpidem Tartrate 5 Mg Tab) 5 mg PO HS PRN PRN Reason: Insomnia Stop: 06/08/20 21:16 Last Admin: 05/11/20 23:27 Dose: 5 mg Documented by: PG Care Time/CCT Total # of Minutes Spent Total Time Spent with Patient: Total time spent is greater than 50% in coordination of care (as documented) at patient's floor/unit and/or counseling patient: Coding Level of Care Code 25806 Subseq Hosp Care Lvl 3 Diagnoses COVID-19 U07.1 Acute systolic heart failure I50.21 NSTEMI (non-ST elevated myocardial infarction) I21.4 Acute respiratory failure with hypoxia J96.01 Sepsis A41.9 Acute on chronic heart failure with preserved ejection fraction I50.33 Type 2 diabetes mellitus E11.9 Hypertension I10 Aortic stenosis I35.0 Cardiac valve disease etiology: etiology unspecified CAD (coronary artery disease) I25.10 Dermatitis L30.9 Prostate cancer C61 DVT prophylaxis Z29.9 (1) Aortic stenosis Cardiac valve disease etiology: etiology unspecified Qualified Code(s): I35.0 - Nonrheumatic aortic (valve) stenosis
[2020-05-12] MEDS ORDERED: MoRPHine SULFATE 2 MG/ML CARP IV PRN (11:17)
[2020-05-12] MEDS ORDERED: INSULIN HUMAN REGULAR PER UNIT 5 UNITS in SYRINGE 4.95 ML IV ONE (11:30)
[2020-05-12] MEDS ORDERED: INSULIN ASPART 100 UNITS/ML 3 ML PEN SC ONE (11:30)
--- NOTE | 2020-05-12 12:34 | Pharmacy Report ---
Pharmacy Glycemic Short Note 2 - Date of Service May 12, 2020 - Glycemic Short BSG Results (Last 24 hours): 05/11/20 05/11/20 05/12/20 16:16 20:21 05:45 Glucose 79 POC Glucose 108 H 112 H 05/12/20 05/12/20 07:19 11:16 Glucose POC Glucose 83 296 H OUTPATIENT ANTIDIABETIC REGIMEN: * Metformin 500mg PO BID * A1c = 7.8% 05/10/20 ASSESSMENT: 05/23 * BSG's ranged 108-184 mg/dL yesterday. AM fasting BSG was 83 mg/dL this AM and pre-lunch BSG with notable increase to 296 mg/dL * Dexamethasone continues * AM fasting BSG below goal range - will discontinue Lantus, and use only NPH as basal insulin * Significant spike pre-lunch noted, but yesterday the other post-prandial BSG's were wnl prior to dinner and bedtime. Will tighten Novolog parameters at breakfast only and also provide a one-time IV bolus dose with lunch today 05/11 * 72 units SQ insulin administered over last 24 hrs while tolerating a diet. * BSG control has been quite good with the current orders * Fasting BSG 109 this AM with 20 units Lantus on board. He had also received 28 units NPH in the AM yesterday w/ dexamethasone IV. * Dexamethasone 6mg IV continues (day # 3) * Post prandial BSGs mostly at goal w/ current Novolog doses (and AM NPH dose) 05/10 * Reasonably well controlled type 2 diabetic admitted for sepsis secondary to viral pneumonia, sepsis, possible superimposed bacterial infection * Metformin has been held and patient was placed on SQ basal/bolus regimen utilizing weight. Basal dose will be scaled given uncertain insulin resistance in the setting of infection and high dose steroids. Novolog doses will be based upon "severe" stress given dexamethasone's exaggerated post- prandial hyperglycemic effects. NPH will be used w/ each dose of dexamethasone to help counter this acute hyperglycemic response. PLAN FOR INPATIENT GLYCEMIC CONTROL: * Hold outpatient oral diabetes medications (metformin) * Basal insulin - discontinue * NPH 28 units (~0.3units/kg) w/ each dose of dexamethasone 6mg IV (no change) * Bolus insulin - tighten at breakfast * NovoLog per scale ACHS or Q6hrs while NPO * Goal Range: Low 110 mg/dL - High 140 mg/dL * Correction Factor: 15 mg/dL/unit at breakfast, 20 mg/dL/unit others * Carb ratio: 5 g CHO/unit at breakfast, 6 g CHO/unit others PLAN FOR DISCHARGE: * may resume metformin on discharge if no contraindications present. A1c of 7.8% is likely at goal for patient of this age.
[2020-05-12] MEDS: MoRPHine SULFATE 2 MG/ML CARP IV PRN (14:54)
--- NOTE | 2020-05-12 14:58 | Electrocardiogram Report ---
Test Reason : Blood Pressure : / mmHG Vent. Rate : 078 BPM Atrial Rate : 078 BPM P-R Int : 166 ms QRS Dur : 098 ms QT Int : 458 ms P-R-T Axes : 029 -26 215 degrees QTc Int : 522 ms Normal sinus rhythm Left ventricular hypertrophy with repolarization abnormality Septal infarct , age undetermined Marked T wave abnormality consider anterolateral ischemia Prolonged QT Abnormal ECG When compared with ECG of 09-MAY-2020 15:02, Significant changes have occurred Confirmed by Oc Li ([id number]) on 05/12/2020 2:57:54 PM Referred By: REFERRED SELF Confirmed By:Oc Li
[2020-05-12] MEDS ORDERED: LORazepam 1 MG/2 ML VIAL IV PRN (15:50)
[2020-05-12] MEDS: FUROSEMIDE 40 MG in SYRINGE 0 ML IV SCH (17:39)
[2020-05-12] MEDS: REMDESIVIR 100 MG in SODIUM CHLORIDE 0.9% 230 ML IV SCH (20:15)
[2020-05-12] MEDS: ACETAMINOPHEN 325 MG TAB PO PRN (20:16)
[2020-05-12] MEDS: SIMVASTATIN 40 MG TAB PO SCH (20:18)
[2020-05-12] MEDS: SODIUM CHLORIDE 0.9% 10ML FLUSH IV SCH (21:29)
[2020-05-12] MEDS: ZOLPIDEM TARTRATE 5 MG TAB PO PRN (22:13)
[2020-05-13] MEDS: MoRPHine SULFATE 2 MG/ML CARP IV PRN ×3 (05:01→14:06)
[2020-05-13] MEDS: FUROSEMIDE 40 MG in SYRINGE 0 ML IV SCH (07:27)
[2020-05-13] MEDS: POTASSIUM CHLORIDE CRTAB 20 MEQ TABCR PO SCH (07:27)
[2020-05-13] MEDS: ACETAMINOPHEN 325 MG TAB PO PRN (07:28)
[2020-05-13] MEDS: PREGABALIN 75 MG CAP PO SCH (07:28)
[2020-05-13] MEDS ORDERED: STAT IV Infusion **Titration per Protocol STA (14:02)
--- NOTE | 2020-05-13 14:09 | Hospitalist Progress Note ---
Date of Service May 13, 2020 Assessment & Plan (1) COVID-19: treated initially with dexamethasone, Remdesivir, plasma continued to require high levels of oxygen, 40L and 100% FiO2 now with saturations 85% labored breathing, getting worse on 05/12 tried BIPAP for an hour, did not tolerate well he confirms he is DNR/DNI, he just wants to be comfortable changed to comfort measures 05/12, no labs, no medications other than for comfort today he is on 15L oxymask, just wants to go to sleep he says he has suffered for 5 days start morphine drip as Morphine pushes not providing comfort notified his daughter (2) Acute systolic heart failure: echo with EF 40-45%, this is new finding coupled with severe and Aortic regurgitation, not a good prognosis Lasix 40mg IV BID to keep lungs dry has some peripheral edema likely a result of NSTEMI, he denies chest pain comfort measures now (3) NSTEMI (non-ST elevated myocardial infarction): troponin rising to 3 and then to 4 on 05/10 no chest pain or pressure past three days could be type II [place] with demand ischemic due to hypoxia and work of breathing stop medications echo with EF 40-45% which is new finding, new wall motion abnormalities EKG today with no acute ischemic changes comfort (4) Acute respiratory failure with hypoxia: ABG concerning with PaO2 51 on high flow O2 FiO2 100% on admission Aim O2 sats > 90% on 40L and 100% FiO2 with saturations 85%, did not tolerate BIPAP on 05/12 change to comfort care, morphine drip (5) Sepsis: resolved (6) Acute on chronic heart failure with preserved ejection fraction: combination of NSTEMI, aortic stenosis limiting outflow now with EF of 40-45% as well lasix 40mg IV BID (7) Type 2 diabetes mellitus: HbA1c 7.7 in July. Hold metformin. stop BSG, comfort only (8) Hypertension: Hold lisinopril, and norvasc and imdur hold metopolol BP is low normal, HR stable on monitor can downgrade off monitor, comfort care (9) Aortic stenosis: Severe on echocardiogram in August [address]. [address] Dr. Martin as an outpatient - declined intervention for this. he is DNR/DNI which is appropriate (10) CAD (coronary artery disease): (11) Dermatitis: Fluocinonide BID PRN (12) Prostate cancer: On Eligard injections every 6 months. Last taken 2 weeks previously. (13) DVT prophylaxis: discontinue Admission and Anticipated Discharge Date Admission Date: May 09, 2020 Subjective patient says he is suffering today, asks if we can just help him go to sleep breathing 30 times a minute will start morphine drip, he is in agreement had RN place him on oxymask, saturations low to mid 80's, no distress I will call his daughter and let her know will try to move to private room Review of Systems Review of Systems: All systems reviewed & are unremarkable except as noted in Subjective Constitutional: + fatigue and + weakness; no fever Respiratory: + dyspnea Cardiovascular: no chest pain Gastrointestinal: + early satiety; no abdominal pain, no nausea, no vomiting, no constipation and no diarrhea/loose stools Physical Exam Constitutional: well developed, + ill appearing and + frail appearing; no acute distress Neck: trachea midline, no thyromegaly Respiratory: + respiratory distress, + labored breathing, + uses accessory muscles and + tachypneic; + not able to speak in complete sentence Auscultation: no crackles, no rales, no rhonchi and no wheezes Cardiovascular: RRR, no murmur, no edema Rate/Rhythm: regular rate and regular rhythm Heart Sounds: normal S1, normal S2 and + murmur (systolic) Extremities: normal capillary refill and + edema (trace bilaterally) Gastrointestinal (Abdomen): normal bowel sounds, soft, nontender, no hepatosplenomegaly Musculoskeletal: no cyanosis or clubbing, extremities motor strength 5/5 Skin: no rashes, warm and dry Neurologic: patellar DTR's 2+ bilat, sensation intact and PERRL, EOMI, accommodation nl, no face palsy, no dysarthria Psychiatric: A+Ox3, euthymic affect Lymphatic: no cervical or axillary lymphadenopathy Results & Data Results & Data ([facility]) Vital Signs (Past 12 Hours) Vital Signs Pulse Pulse Resp Pulse Ox 05/13/20 11:29 83 20 89 L 05/13/20 08:00 76 05/13/20 07:52 82 28 H 89 L 05/13/20 03:47 64 18 87 L 05/13/20 03:00 60 30 H 88 L Laboratory Results Laboratory Results - last 24 hr 05/12/20 16:04 POC Glucose 75 Medications Administered Current Inpatient Medications Acetaminophen (Acetaminophen 325 Mg Tab) 650 mg PO Q4H PRN PRN Reason: Pain or Fever Stop: 06/08/20 21:16 Last Admin: 05/13/20 07:28 Dose: 650 mg Documented by: Dextrose (Dextrose 50% 50 Ml Syringe) 25 - 50 ml IV UD PRN; Protocol PRN Reason: Hypoglycemia Protocol Stop: 06/08/20 21:59 Fluocinonide (Fluocinonide 0.05% Oint 15 Gm Tube) 1 appln EXT BID PRN PRN Reason: dermatitis areas on leg and arms Stop: 06/09/20 08:59 Glucagon (Glucagon For Inj 1 Mg Vial) 1 mg IM UD PRN; Protocol PRN Reason: Hypoglycemia Protocol Stop: 06/08/20 21:59 Glucose (Glucose 40% Gel 15 Gm Tube) 15 - 30 gm PO UD PRN; Protocol PRN Reason: Hypoglycemia Protocol Stop: 06/08/20 21:59 Glucose (Glucose 10 Tabs/Tube) 4 - 8 tabs PO UD PRN; Protocol PRN Reason: Hypoglycemia Protocol Stop: 06/08/20 21:59 Remdesivir 100 mg/ Sodium (Chloride) 250 mls @ 250 mls/hr IV Q24H [facility]; Protocol Stop: 05/13/20 20:59 Last Infusion: 05/12/20 21:28 Dose: Infused Documented by: Furosemide 40 mg/ Syringe 4 mls @ 4 mls/min IV [id number] [facility] Stop: 06/11/20 16:59 Last Admin: 05/13/20 07:27 Dose: 4 mls/min Documented by: Lorazepam (Ativan) 1 mg in 2 mls @ 2 mls/min IV Q4H PRN PRN Reason: Anxiety/Agitation Stop: 06/11/20 15:49 Last Admin: 05/13/20 10:35 Dose: 2 mls/min Documented by: Morphine Sulfate (Morphine Sulf/Nss) 250 mg in 250 mls @ 1 mls/hr IV .Q96H [facility]; Protocol Stop: 05/27/20 14:29 Miscellaneous (Carbohydrates For Hypoglycemia ) 15 - 30 gm PO UD PRN PRN Reason: Hypoglycemia Treatment Stop: 06/08/20 21:59 Morphine Sulfate (Morphine Sulfate 2 Mg/Ml Carp) 2 mg IV Q2H PRN PRN Reason: Dyspnea Stop: 05/26/20 11:16 Last Admin: 05/13/20 07:28 Dose: 2 mg Documented by: Potassium Chloride (Potassium Chloride Crtab 20 Meq Tabcr) 20 meq PO BID [facility] Stop: 06/08/20 21:29 Last Admin: 05/13/20 07:27 Dose: 20 meq Documented by: Pregabalin (Pregabalin 75 Mg Cap) 75 mg PO BID [facility] Stop: 06/08/20 21:16 Last Admin: 05/13/20 07:28 Dose: 75 mg Documented by: Simvastatin (Simvastatin 40 Mg Tab) 40 mg PO HS [facility] Stop: 06/08/20 21:16 Last Admin: 05/12/20 20:18 Dose: 40 mg Documented by: Sodium Chloride (Sodium Chloride 0.9% 10ml Flush) 30 ml IV Q24H [facility] Stop: 05/13/20 21:01 Last Admin: 05/12/20 21:29 Dose: 30 ml Documented by: Zolpidem Tartrate (Zolpidem Tartrate 5 Mg Tab) 5 mg PO HS PRN PRN Reason: Insomnia Stop: 06/08/20 21:16 Last Admin: 05/12/20 22:13 Dose: 5 mg Documented by: PG Care Time/CCT Total # of Minutes Spent Total Time Spent with Patient: Total time spent is greater than 50% in coordination of care (as documented) at patient's floor/unit and/or counseling patient: Coding Level of Care Code 82685 Subseq Hosp Care Lvl 2 Diagnoses COVID-19 U07.1 Acute systolic heart failure I50.21 NSTEMI (non-ST elevated myocardial infarction) I21.4 Acute respiratory failure with hypoxia J96.01 Sepsis A41.9 Acute on chronic heart failure with preserved ejection fraction I50.33 Type 2 diabetes mellitus E11.9 Hypertension I10 Aortic stenosis I35.0 Cardiac valve disease etiology: etiology unspecified CAD (coronary artery disease) I25.10 Dermatitis L30.9 Prostate cancer C61 DVT prophylaxis Z29.9 (1) Aortic stenosis Cardiac valve disease etiology: etiology unspecified Qualified Code(s): I35.0 - Nonrheumatic aortic (valve) stenosis
[2020-05-13] MEDS: MoRPHine SULF/NSS 250 MG/250 ML BTL IV SCH (14:25)
[2020-05-14] MEDS: SODIUM CHLORIDE 0.9% 10ML FLUSH IV SCH (00:52)
[2020-05-14] MEDS: MoRPHine SULF/NSS 250 MG/250 ML BTL IV SCH (12:07)
--- NOTE | 2020-05-14 12:27 | Death Pronouncement Note ---
Date of Service May 14, 2020 Pronouncement Note Admission Date Admission Date: May 09, 2020 Date and Time of Date of : 05/14/20 Time of : 12:14 PCOD Preliminary cause of : COVID-19 Contributing Factors (1) COVID-19: (2) Acute systolic heart failure: (3) NSTEMI (non-ST elevated myocardial infarction): (4) Acute respiratory failure with hypoxia: (5) Sepsis: (6) Acute on chronic heart failure with preserved ejection fraction: (7) Type 2 diabetes mellitus: (8) Hypertension: (9) Aortic stenosis: (10) CAD (coronary artery disease): (11) Dermatitis: (12) Prostate cancer: (13) DVT prophylaxis: Hospital Course Hospital Course: see discharge summary Additional Data Confirmation of : no pulse, no respirations, no heart sounds and pupils fixed and dilated Family: contacted Attending/PCP notified?: Yes Attending physician: Shahzad Roberson, DO Was code activated?: No Autopsy requested?: No computer forensics examiner notified?: No Organ bank notified?: No Advance directives: No Coding Level of Care Code None Diagnoses COVID-19 U07.1 Acute systolic heart failure I50.21 NSTEMI (non-ST elevated myocardial infarction) I21.4 Acute respiratory failure with hypoxia J96.01 Sepsis A41.9 Acute on chronic heart failure with preserved ejection fraction I50.33 Type 2 diabetes mellitus E11.9 Hypertension I10 Aortic stenosis I35.0 Cardiac valve disease etiology: etiology unspecified CAD (coronary artery disease) I25.10 Dermatitis L30.9 Prostate cancer C61 DVT prophylaxis Z29.9
--- NOTE | 2020-05-14 12:28 | Discharge Summary ---
Date of Service May 14, 2020 Admission HPI Per Admitting Provider Jonnathan Aguila is an 89-year-old male who presents to the ER with shortness of breath, hypoxia and confusion. Initially started with symptoms of chills 4 days ago. Additional myalgias, shortness of breath, confusion, poor appetite. No loss of taste or smell, nasal congestion. Slowly progressing shortness of breath and confusion since then although intermittently getting better then worse. No known exposure to COVID-19 however he lives with his son who works for [employer] and has regular visits from his daughter who is a nurse. Discussed care with his daughter and decision maker Danay who is a nurse at [employer]. She is particularly concerned about a UTI as the patient had his 6 monthly Eligard injection 2 weeks ago and usually they test his urine at that time and put him on antibiotics. He self caths daily and has also reportedly been having problems with this lately. She confirms the patient is not for resuscitation and intubation which is consistent with his last hospital stay in August. In the ER he was noted to be hypoxic with O2 sats 60% on room air. He was started on vapotherm high flow nasal cannula FiO2 100%, 40L/min with improvement to 84-92% O2 sats. He was diagnosed with sepsis due to an elevated WBC treated with cefepime 2 g IV. Regarding his Covid 19 diagnosis he was given dexamethasone 6 mg IV. Also suspected to be in heart failure and given Lasix 40 mg IV. Due to hyperglycemia he was given insulin 10 units IV then an additional 6 units IV. He was referred to medicine for admission and ongoing management of hypoxia, Covid, elevated troponin. Principal Diagnosis COVID 19 pneumonia Discharge Exam no pulse, no respirations, pupils fixed, unresponsive, no heart sounds or breath sounds Discharge Data Allergies Allergy/AdvReac Type Severity Reaction Status Date / Time Sulfa (Sulfonamide Allergy Unknown RASH Verified 05/09/20 17:39 Antibiotics) Consultations 05/09/20 15:50 ED Decision to Admit Stat Hospital Course (1) COVID-19: treated initially with dexamethasone, Remdesivir, plasma continued to require high levels of oxygen, 40L and 100% FiO2 with saturations 85% labored breathing, getting worse on 05/12 tried BIPAP for an hour, did not tolerate well changed to comfort measures 05/12, no labs, no medications other than for comfort 05/13 he was on 15L oxymask, just "wants to go to sleep" he says he has suffered for 5 days started morphine drip on 05/13 as Morphine pushes not providing comfort patient peacefully on 05/14 notified his daughter over the phone (2) Acute systolic heart failure: echo with EF 40-45%, this is new finding coupled with severe and Aortic regurgitation, not a good prognosis Lasix 40mg IV BID to keep lungs dry had some peripheral edema likely a result of NSTEMI, he denies chest pain changed to comfort measures (3) NSTEMI (non-ST elevated myocardial infarction): troponin rising to 3 and then to 4 on 05/10 no chest pain or pressure past three days echo with EF 40-45% which is new finding, new wall motion abnormalities EKG with no acute ischemic changes comfort care (4) Acute respiratory failure with hypoxia: ABG concerning with PaO2 51 on high flow O2 FiO2 100% on admission Aim O2 sats > 90% on 40L and 100% FiO2 with saturations 85%, did not tolerate BIPAP on 05/12 changed to comfort care, morphine drip (5) Sepsis: resolved (6) Acute on chronic heart failure with preserved ejection fraction: combination of NSTEMI, aortic stenosis limiting outflow now with EF of 40-45% as well lasix 40mg IV BID (7) Type 2 diabetes mellitus: HbA1c 7.7 in July. Hold metformin. stop BSG, comfort only (8) Hypertension: Hold lisinopril, and norvasc and imdur hold metopolol BP is low normal, HR stable on monitor can downgrade off monitor, comfort care (9) Aortic stenosis: Severe on echocardiogram in August [address]. [address] Dr[address] Martin as an outpatient - declined intervention for this. he is DNR/DNI which is appropriate (10) CAD (coronary artery disease): (11) Dermatitis: Fluocinonide BID PRN (12) Prostate cancer: On Eligard injections every 6 months. Last taken 2 weeks previously. (13) DVT prophylaxis: discontinue Total Time Total Time Spent Total Time Spent (In Minutes): 32 minutes Total Time Includes: Examination of the Patient (checked on patient several times to make sure he was comfortable) and Other (two separate discussions with his daughter on the day of his ) Discharge Plan Discharge Items Patient Disposition: Coding Level of Care Code D/C Day Management >30 mins Diagnoses COVID-19 U07.1 Acute systolic heart failure I50.21 NSTEMI (non-ST elevated myocardial infarction) I21.4 Acute respiratory failure with hypoxia J96.01 Sepsis A41.9 Acute on chronic heart failure with preserved ejection fraction I50.33 Type 2 diabetes mellitus E11.9 Hypertension I10 Aortic stenosis I35.0 Cardiac valve disease etiology: etiology unspecified CAD (coronary artery disease) I25.10 Dermatitis L30.9 Prostate cancer C61 DVT prophylaxis Z29.9
--- NOTE | 2020-05-19 06:22 | Coding Query ---
CODING QUERY To promote full compliance with coding requirements relating to patient care, provider participation is requested in all cases of auto vinyl top installer uncertainty. Please assist us with the question(s) below: Coding Question(s): Documentation of "Acute on Chronic Heart Failure w/ Preserved Ejection Fracture" is documented POA. Please clarify type of Heart Failure below: ( ) Acute on Chronic Diastolic Heart Failure ( ) Acute on Chronic Systolic Heart Failure ( ) Acute on Chronic Combined Systolic and Diastolic Heart Failure ( x) Other Please Explain: patient was in acute heart failure, found to have new systolic dysfunction on echocardiogram, so most accurate description would be... Acute systolic heart failure as well as acute on chronic diastolic heart failure Thank you Vipul Elizabeth Principal Diagnosis: "that condition established after study, to be chiefly responsible for occasioning the admission of the patient to the hospital for care." Co-Existing Principal Diagnosis: "when two or more diagnoses equally meet the criteria for principal diagnosis as determined by the circumstances of admission, diagnostic work up, and/or therapy provided, and the Alphabetic Index, Tabular List, or another coding guideline does not provide sequencing direction, any one of the diagnoses may be sequenced first." "When the physician has documented what appears to be a current diagnosis in the body of the record, but has not included the diagnosis in the final diagnostic statement, the physician should be asked whether the diagnosis should be added." (Source [facility]oding [facility] 2 QTR90. p3-4) DENYS
== END 2020-05-14 12:44 | disposition expired | DRG 871 ==
LOC: ED 13:51 → 2E 17:24 → SUATTDRO 17:24 → 2E 20:53